=== PATIENT | male | born 1965 | race Caucasian/White ===

== ENCOUNTER 2016-06-25 11:33 | Emergency (ER) | payer MEDICARE ==
[2016-06-25] MEDS ORDERED: Tetan/Diph/Pertus SYR(Tdap)* 0.5 ML SYR(BOOSTRIX) use SYR IM ONE (12:47)
[2016-06-25] MEDS ORDERED: Mupirocin 2% OINT* TUBE TOPICAL ONE (12:52)
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
[2016-06-25 13:14] VITALS: BP 148/92
== END 2016-06-25 13:15 | disposition left against medical advice (07) ==
LOC: UCEAST 11:33
DX: T21.25XA Burn of second degree of buttock, initial encounter (principal); T21.26XA Burn of second degree of male genital region, initial encounter; T24.212A Burn of second degree of left thigh, initial encounter; R56.9 Unspecified convulsions; F17.210 Nicotine dependence, cigarettes, uncomplicated; X10.0XXA Contact with hot drinks, initial encounter
CPT/HCPCS: 90715; 99213; G0463

== ENCOUNTER 2016-08-02 15:01 | Emergency (ER) | payer MEDICARE, MEDICAID ==
--- NOTE | 2016-08-02 16:01 | RAD ---
INDICATION: History of seizures. COMPARISON: CT brain August 25, 2015 TECHNIQUE: Noncontrast axial source images were acquired from the skull base to the vertex. FINDINGS: Ventricles/sulci: The ventricles and cisterns are normal in size and configuration for age. Brain parenchyma: There is no focal parenchymal finding, evidence of intracranial mass, or intracranial mass effect. Intracranial hemorrhage:None. Extra-axial spaces: There are no abnormal extra axial fluid collections or evidence of extra-axial mass. Calvarium: There is no calvarial fracture or other calvarial abnormality. Scalp: There is no evidence of scalp or extracalvarial soft tissue abnormality. Paranasal sinuses/mastoid: The paranasal sinuses and mastoid air cells are clear. Other: None. IMPRESSION: NEGATIVE NONCONTRAST EXAMINATION
--- NOTE | 2016-08-02 16:04 | RAD ---
INDICATION: History of seizures. No complaints COMPARISON: CT brain August 25, 2015, May 07, 2013 TECHNIQUE: Axial source images were acquired from the vertex of the mandible through the orbits. Coronal and sagittal reconstructed images were acquired. FINDINGS: Bones: There is no acute facial bone fracture. There is a mildly displaced left nasal bone fracture which is unchanged Orbits: The globes and intraconal structures appear intact. The optic nerves are symmetric. Extraocular muscles appear normal. There is no intraconal inflammatory change or retrobulbar mass.. Paranasal sinuses: There is minor mucosal thickening involving the maxillary antra bilaterally left greater than right The paranasal sinuses are otherwise clear. Brain: There are no acute abnormalities of the visualized brain parenchyma. Soft tissues: Normal Other: None The visualized soft tissue elements about the neck appear normal. IMPRESSION: REMOTE LEFT NASAL BONE FRACTURE. FINDINGS OF MILD CHRONIC SINUSITIS.
[2016-08-02 16:53] LABS: Urine Bacteria Absent (Absent); Urine Bilirubin Negative (Negative); Urine Glucose Negative (Negative); Urine Nitrite Negative (Negative)
[2016-08-02 16:56] LABS: Hematocrit 41 % (42-52); Mean Corpuscular HGB Conc 34 g/dl (31-36); Mean Corpuscular Hemoglobin 32 pg (27-31); Mean Corpuscular Volume 92 fL (80-94); Mean Platelet Volume 8 um3 (7.4-10.4); Red Blood Count 4.45 10^6/ul (4.0-5.4); Red Cell Distribution Width 14 % (10.5-15); White Blood Count 10.1 10^3/ul (3.5-10.8)
[2016-08-02 17:11] LABS: Albumin 3.8 g/dL (3.2-5.2); BUN/Creatinine Ratio 18.3 (8-20); Calcium 9.5 mg/dL (8.6-10.3); EGFR Non-African American 117.4 (>60); Globulin 3.6 g/dL (2-4); Potassium 4.3 mmol/L (3.5-5.0); Total Bilirubin 0.4 mg/dL (0.2-1.0); Total Protein 7.4 g/dL (6.4-8.9)
[2016-08-02 18:12] VITALS: BP 141/80
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
== END 2016-08-02 18:11 | disposition home or self-care (01) ==
LOC: ED 15:01
DX: S01.112A Laceration without foreign body of left eyelid and periocular area, initial encounter (principal); S02.2XXA Fracture of nasal bones, initial encounter for closed fracture; G40.909 Epilepsy, unspecified, not intractable, without status epilepticus; W19.XXXA Unspecified fall, initial encounter; Y93.9 Activity, unspecified; Y92.129 Unspecified place in nursing home as the place of occurrence of the external cause
CPT/HCPCS: 36415; 70450; 70486; 80053; 80164; 80299; 81003; 81015; 82550; 83605; 85025; 87086; 99284

== ENCOUNTER 2016-11-17 17:07 | Observation (INO) | payer MEDICARE ==
[2016-11-17] MEDS ORDERED: LORazepam INJ* 2 MG/ML 1 ML VIAL IV PUSH PRN (17:15)
[2016-11-17] MEDS ORDERED: Lacosamide TAB* 100 MG TAB PO SCH (18:00)
[2016-11-17 19:54] LABS: Hematocrit 44 % (42-52); Mean Corpuscular HGB Conc 34 g/dl (31-36); Mean Corpuscular Hemoglobin 31 pg (27-31); Mean Corpuscular Volume 90 fL (80-94); Mean Platelet Volume 9 um3 (7.4-10.4); Red Blood Count 4.89 10^6/ul (4.0-5.4); Red Cell Distribution Width 16 % (10.5-15); White Blood Count 9.3 10^3/ul (3.5-10.8)
[2016-11-17 20:21] LABS: BUN/Creatinine Ratio 5.6 (8-20); Calcium 9.2 mg/dL (8.6-10.3); EGFR African American 150.4 (>60); Globulin 3.2 g/dL (2-4); Total Bilirubin 0.8 mg/dL (0.2-1.0); Total Protein 7.2 g/dL (6.4-8.9)
[2016-11-17] MEDS ORDERED: Divalproex DR TAB(*) 500 MG PO SCH (21:00)
[2016-11-17] MEDS ORDERED: Clobazam TAB (NF) 10 MG TAB PO SCH (21:00)
[2016-11-17] MEDS: Heparin VIAL(*) 5000 UNITS/ML VIAL (FIVE THOUSAND) SUBCUT SCH (21:17)
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
[2016-11-18 04:57] VITALS: BP 139/79
[2016-11-18] MEDS ORDERED: Lacosamide TAB* 100 MG TAB PO SCH (09:00)
[2016-11-18] MEDS: Heparin VIAL(*) 5000 UNITS/ML VIAL (FIVE THOUSAND) SUBCUT SCH (10:18)
--- NOTE | 2016-11-19 05:38 | DS ---
CC: Dr. Ortega DISCHARGE SUMMARY: DATE OF ADMISSION: DATE OF DISCHARGE: 11/18/16 HISTORY OF PRESENT ILLNESS: This 51-year-old man came for routine screening colonoscopy to the [facility] endoscopy suite on 11/17/16. While waiting, he had taken a prep as prescribed and was waitin g in the endoscopy area. When a loud noise came from the waiting room and the nurse went in and saw the patient was seizing. The patient had omitted all of his medications including his anti-seizure medications on the morning of colonoscopy. Dr. Mcdowell was nearby and gave 5 mg of IV midazolam and then another 2 mg 5 minutes later and another milligram 3 minutes after that, 1500 mg of fosphenytoi n was also ordered by the patch washer and administered. Dr. Ortega came to see the patient an d ordered 300 mg of IV Vimpat, which was given. The patient stopped having seizures. Overnight, he did well. His usual seizure medication regimen was reinstituted. FINAL DIAGNOSIS: Seizure disorder. DISCHARGE MEDICATIONS: 1. Divalproex 1500 mg h.s. 2. Lacosamide 300 mg daily and 100 mg every evening. 3. Clobazam 10 mg h.s. [id number]/[facility] [place] #: [id number]
== END 2016-11-18 15:15 | disposition home or self-care (01) ==
LOC: MEDTELE 17:59
PROVIDERS: ADMIT Internal Medicine; ATTEND Internal Medicine
DX: G40.909 Epilepsy, unspecified, not intractable, without status epilepticus (principal); Z87.891 Personal history of nicotine dependence
CPT/HCPCS: 36415; 80053; 85027; 96372; A9270-GY; G0378; J1644

== ENCOUNTER 2016-12-08 12:21 | Emergency (ER) | payer MEDICARE ==
--- NOTE | 2016-12-08 14:30 | UC ---
Laceration HPI - HPI Summary HPI Summary: 51 YEAR OLD MALE PRESENTS WITH COMPLAINS OF LEFT THUMB LACERATION SECONDARY TO A CERAMIC TOILET BOWL. - History Of Current Complaint Chief Complaint: UCLaceration Stated Complaint: FINGER LACERATION Time Seen by Provider: 12/08/16 14:30 Hx Obtained From: Patient Laceration Location: Hand - left thumb Mechanism Of Injury: Sharp Trauma Onset/Duration: Sudden Onset Pain Scale Used: 0-10 Numeric - 5 - Allergies/Home Medications Allergies/Adverse Reactions: Allergies Allergy/AdvReac Type Severity Reaction Status Date / Time No Known Allergies Allergy Verified 12/08/16 13:10 PMH/Surg Hx/FS Hx/Imm Hx Previously Healthy: Yes - Surgical History Surgical History: None - Family History Known Family History: Positive: Hypertension - Social History Alcohol Use: None Substance Use Type: Marijuana Substance Use Comment - Amount & Last Used: daily usage Smoking Status (MU): Former Smoker Amount Used/How Often: 1 pack/ day When Did the Patient Quit Smoking/Using Tobacco: 06/2016 Household Exposure Type: Cigarettes - Immunization History Most Recent Influenza Vaccination: unknown Most Recent Tetanus Shot: 06/2016 Most Recent Pneumonia Vaccination: unknown Review of Systems Constitutional: Negative Skin: Other - left thumb laceration Eyes: Negative ENT: Negative Respiratory: Negative Cardiovascular: Negative Gastrointestinal: Negative Genitourinary: Negative Motor: Negative Neurovascular: Negative Musculoskeletal: Negative Neurological: Negative Psychological: Negative All Other Systems Reviewed And Are Negative: Yes Physical Exam Triage Information Reviewed: Yes Vital Signs: Initial Vital Signs Temp 36.6 C 12/08/16 13:04 Pulse 65 12/08/16 13:04 Resp 16 12/08/16 13:04 BP 140/96 12/08/16 13:04 Pulse Ox 100 12/08/16 13:04 Vital Signs Reviewed: Yes Eye Exam: Normal ENT Exam: Normal Dental Exam: Normal Neck exam: Normal Neck: Positive: 1 Respiratory Exam: Normal Cardiovascular Exam: Normal Abdominal Exam: Normal Musculoskeletal Exam: Normal Neurological Exam: Normal Psychological Exam: Normal Skin: Positive: Other - left thumb laceration Laceration Repair - Laceration Repair 1 Description: Irregular Laceration Size After Repair: Length (cm) - 2.5 to 5 cm Modified For Repair: No Type Injection: Local Anesthesia Used: 1.0% Lido Cleansing Completed Via Routine Prep: Yes Closure Material: Sutures - 10 Suture Of: Skin Suture Type: Prolene - 5.0 Laceration Course/Dx - Differential Dx - Laceration/Wound Provider Diagnoses: left thumb laceration repair 2.5 to 5 cm Discharge - Discharge Plan Condition: Stable Disposition: HOME Prescriptions: Cephalexin CAP* [Keflex CAP*] 500 mg PO TID #30 cap Patient Education Materials: Care For Your Stitches (ED), Laceration (ED) Referrals: Mike Dickinson NP [Primary Care Provider] -
[2016-12-08] MEDS ORDERED: Lidocaine 1% MPF* 2 ML VIAL INJ ONE (14:47)
[2016-12-08] MEDS ORDERED: diPHENhydraMINE IV* 50 MG/ML 1 ml VIAL (BENADRYL) IV ONE (14:52)
[2016-12-08 15:59] VITALS: BP 150/95
== END 2016-12-08 15:50 | disposition home or self-care (01) ==
LOC: UCEAST 12:21
DX: S61.012A Laceration without foreign body of left thumb without damage to nail, initial encounter (principal); Z87.891 Personal history of nicotine dependence; W45.8XXA Other foreign body or object entering through skin, initial encounter; Y92.9 Unspecified place or not applicable
CPT/HCPCS: 12002; 99212; G0463

== ENCOUNTER 2016-12-10 10:09 | Emergency (ER) | payer MEDICARE ==
--- NOTE | 2016-12-10 10:15 | UC ---
Upper Extremity HPI - HPI Summary HPI Summary: 51 YEAR OLD MALE PRESENTS FOR 48 LEFT THUMB LACERATION REPAIR WITH SUTURES. - History of Current Complaint Stated Complaint: THUMB Time Seen by Provider: 12/10/16 10:15 Hx Obtained From: Patient Onset/Duration: Sudden Onset Severity Currently: None Pain Scale Used: 0-10 Numeric - 0 - Allergies/Home Medications Allergies/Adverse Reactions: Allergies Allergy/AdvReac Type Severity Reaction Status Date / Time No Known Allergies Allergy Verified 12/10/16 10:15 PMH/Surg Hx/FS Hx/Imm Hx Previously Healthy: Yes - Surgical History Surgical History: None - Family History Known Family History: Positive: Hypertension - Social History Alcohol Use: None Substance Use Type: Marijuana Substance Use Comment - Amount & Last Used: daily usage Smoking Status (MU): Former Smoker Amount Used/How Often: 1 pack/ day When Did the Patient Quit Smoking/Using Tobacco: 06/2016 Household Exposure Type: Cigarettes - Immunization History Most Recent Influenza Vaccination: unknown Most Recent Tetanus Shot: 06/2016 Most Recent Pneumonia Vaccination: unknown Review of Systems Constitutional: Negative Skin: Other - LEFT THUMB LACERATION Eyes: Negative ENT: Negative Respiratory: Negative Cardiovascular: Negative Gastrointestinal: Negative Genitourinary: Negative Motor: Negative Neurovascular: Negative Musculoskeletal: Negative Neurological: Negative Psychological: Negative All Other Systems Reviewed And Are Negative: Yes Physical Exam Triage Information Reviewed: Yes Appearance: Well-Appearing Vital Signs Reviewed: Yes Eye Exam: Normal ENT Exam: Normal Dental Exam: Normal Neck exam: Normal Neck: Positive: 1 Respiratory Exam: Normal Cardiovascular Exam: Normal Abdominal Exam: Normal Musculoskeletal Exam: Normal Neurological Exam: Normal Psychological Exam: Normal Skin: Positive: Other - LEFT THUMB LACERATION REPAIR WOUND CHECK Upper Extremity Course/Dx - Differential Dx/Diagnosis Provider Diagnoses: LEFT THUMB LACERATION REPAIR WOUND CHECK Discharge - Discharge Plan Condition: Stable Disposition: HOME Patient Education Materials: Care For Your Stitches (ED), Laceration (ED) Referrals: Mike Dickinson NP [Primary Care Provider] -
[2016-12-10 10:19] VITALS: BP 148/83
== END 2016-12-10 10:29 | disposition home or self-care (01) ==
LOC: UCEAST 10:09
DX: Z48.00 Encounter for change or removal of nonsurgical wound dressing (principal); S61.012D Laceration without foreign body of left thumb without damage to nail, subsequent encounter; X58.XXXD Exposure to other specified factors, subsequent encounter
CPT/HCPCS: 99211; G0463

== ENCOUNTER 2017-02-15 13:36 | Day surgery (SDC) | payer MEDICARE ==
[~2017-02-15 13:36] MED LIST: Buffered Lidocaine 0.9% SYRIN* 5 ML/SYR SYRINGE INTRADERM ONE; DiMENhydriNATE IV* 50 MG/ML VIAL IV PUSH PRN; Famotidine IV* 10 MG/ML 2 ML (20 mg) IV ONE; Ondansetron INJ* 2 MG/ML VIAL IV PRN; PROCHLORPERAZINE INJ 5 MG/ML 2 ML VIAL IV PRN
[2017-02-15] MEDS ORDERED: Buffered Lidocaine 0.9% SYRIN* 5 ML/SYR SYRINGE ONE (13:39)
[2017-02-15] MEDS ORDERED: Famotidine IV* 10 MG/ML 2 ML (20 mg) ONE (13:39)
[2017-02-15] MEDS ORDERED: Midazolam* 1 MG/ML 10 ML VIAL (10 MG) ONE (14:25)
[2017-02-15] MEDS ORDERED: fentaNYL* 50 MCG/ML 2 ML VIAL (100 MCG VIAL) ONE (14:25)
[2017-02-15] MEDS ORDERED: Propofol* 10 MG/ML 20 ML BTL IV PUSH ONE (16:11)
[2017-02-15] MEDS ORDERED: Phenylephrine IV* 40 MCG/ML 10 ML SYRINGE ONE (16:12)
[2017-02-15] MEDS ORDERED: EPHEDrine (Pressors)* 50 MG/ML VIAL ONE (16:12)
[2017-02-15] MEDS ORDERED: Glycopyrrolate IV* 0.2 MG/ML 1 ML VIAL ONE (16:12)
[2017-02-15 17:38] VITALS: BP 133/89
--- NOTE | 2017-02-16 06:48 | PRO ---
AMENDED REPORT TO CORRECT ACCOUNT NUMBER - ESIGNED BEFORE ADJUSTMENT CC: Mike Dickinson COAL [employer]IKER * GASTROENTEROLOGY OPERATIVE REPORT: DATE OF PROCEDURE: 02/15/17 - [facility] OPERATIVE PROCEDURE: Colonoscopy to terminal ileum. SURGEON: Prema Murphy DO ANESTHESIA: General. HISTORY OF PRESENT ILLNESS: Sergio is a pleasant 51-year-old male, who presents today for his initial screening colonoscopy. He has a distant history of colon cancer on his mother's side of the family. He denies any personal history of gastrointestinal complaints at this time. PREOPERATIVE DIAGNOSIS: 1. Initial screening colonoscopy. POSTOPERATIVE DIAGNOSES: 1. Normal-appearing terminal ileum. 2. 4-mm sessile descending colon polyp with polypectomy. 3. Nine 2-mm to 4-mm sigmoid polyp with polypectomies. 4. 6-mm sessile rectal polyp with cold snare polypectomy. 5. Small non-thrombosed external hemorrhoids on rectal examination. 6. Good colonoscopy preparation. 7. Recommend any further endoscopic procedures to be preformed under MAC or General anesthesia due to his complex seizure history and he should always receive his seizure medications the morning of his procedures. RECOMMENDATIONS: 1. We will determine timing of repeat colonoscopy based on biopsy results. DESCRIPTION OF PROCEDURE: Colonoscopy was explained in detail to the patient. The risks, benefits, complications, alternatives, and possibilities of missed lesions were explained and understood. Complications included, but were not limited to, reaction to anesthesia, aspiration, increased risk of bleeding, and perforation. All questions were answered. The patient demonstrated understanding of the conversation. Informed consent was obtained. Next, the patient was brought to the OR and placed in the left lateral recumbent position where blood pressure, cardiac, and oxygen monitors were applied. The patient was found to be a fit candidate for general anesthesia. After adequate IV sedation was achieved, a digital rectal exam was performed, which revealed normal sphincter tone. No palpable masses were appreciated. There were small non-thrombosed external hemorrhoids. Next, a standard adult Olympus adult colonoscope was inserted through the rectum, maneuvered all the way to the cecal base where the ileocecal valve and appendiceal orifice were identified and photographed. Next, the colonoscope was maneuvered to intubate the terminal ileum which was normal appearing. Subsequently, the colonoscope was withdrawn in a fashion that allowed adequate visualization of bowel. The patient had normal mucosa and vascular pattern. Overall, the patient's colonoscopy prep was good. The cecum, ascending colon, transverse colon were normal appearing. Entry into the descending colon revealed a 4-mm sessile polyp. It was removed via jumbo cold forceps. Hemostasis was seen. Further withdrawal into the sigmoid colon revealed several, totaling nine 2-mm to 4-mm sessile polyps. These were all removed via jumbo cold forceps. Hemostasis was seen at each polypectomy site. Further withdrawal into the rectum revealed a 6- mm sessile polyp. It was removed via cold snare. Hemostasis was seen at the site. On retroflexion, there were no gross abnormalities noted. Air was then removed from the patient. Colonoscope was removed from the patient. The patient tolerated the procedure well. There were no immediate complications after a period of observation. 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 Thank you, Mike Dickinson NP, for allowing us to participate in the care of your patient. If you should have any further questions or concerns, please do not hesitate to contact us. [id number]/CUONG #: [id number] RAZA
== END 2017-02-15 17:52 | disposition home or self-care (01) ==
LOC: OR 13:36
PROVIDERS: ATTEND Internal Medicine Gastroenterology
DX: Z12.11 Encounter for screening for malignant neoplasm of colon (principal); G40.89 Other seizures; K63.5 Polyp of colon; K62.1 Rectal polyp; K64.8 Other hemorrhoids; Z87.891 Personal history of nicotine dependence; F12.10 Cannabis abuse, uncomplicated
CPT/HCPCS: 88305; J2250; J2704; J3010

== ENCOUNTER 2017-07-05 08:13 | Emergency (ER) | payer MEDICARE ==
--- OUTSIDE RECORDS SUMMARY | 2017-07-05 08:19 | XMS REPORT ---
:1965 External Reference #:[id number] Author Organization [facility] Address [address] [address] Phone [phone] Care Team Providers Name Role Phone Miroslava Castillo MD Primary Care Physician Unavailable Payers Type Date Identification Numbers Payment Provider Subscriber Medicare Primary Policy Number: [id number] Medicare Tatyana Rodrigues PayID: [id number] [address] [place] [address] Medigap Part B Expires: 2017 Policy Number: [id number] Medicaid Tatyana Rodrigues Group Name: 1 1 [address] PayID: [id number] [place] [address] Medigap Part B Expires: 2015 Policy Number: [id number] Medicaid Tatyana Rodrigues Group Name: 1 1 [address] PayID: [id number] [place] [address] Medigap Part B Expires: 2017 Policy Number: [id number] Medicaid Tatyana Rodrigues PayID: [id number] [address] [place] [address] Problems Date Description Provider Status Onset: 07/01/2014 Localization-related epilepsy Marino Perdomo M.D. 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 Previously smoked 1ppd x 22 yrs. Daily Caffeine Consumes on average 5 cups of regular coffee per day Exercise Type/Frequency Exercises sporadically Allergies, Adverse Reactions, Alerts Date Description Reaction Status Severity Comments 03/14/2012 NKDA active Medications Medication Date Status Form Strength Qnty SIG Indications Ordering Provider Onfi 09/30/ Active Tablets 10mg 45tab 1/2 tablet G40.219 Alannah 2016 s in the MD Shannon morning and 1 tab by mouth at bedtime Vimpat 11/05/ Active Tablets 100mg 30tab 1 by mouth G40.219 Alannah 2015 s in the MD Shannon morning with your 200mg tablet mdd 1 Vimpat 05/24/ Active Tablets 200mg 60tab 1 tab by G40.219 Alannah 2015 s mouth MD Shannon twice a day Multi Vitamin / Active Tablets 1 po qd Unknown Mens 0000 Depakote / Active Tablets DR 500mg 90tab 3 tab by G40.Albina Pichardo S. 0000 s mouth at [place], at bedtime M.D. Divalproex 07/21/ Hx Tablets ER 250mg 30tab 1 tablet G40.219 Alannah Sodium ER 2017 - 24HR s at night MD Shannon 07/07/ with 3 2016 500mg tablets Onfi 06/13/ Hx Tablets 10mg 30tab 1 tab po q G40.219 Alannah 2017 - s hs MD [place] 2016 Vimpat 04/20/ Hx Tablets 100mg 120ta 2 by mouth G40.219 Alannah 2016 - bs twice a MD [place] 05/24/ day. code 2016 c Vimpat 03/23/ Hx Tablets 100mg 120ta 1 by mouth G40.219 Alannah 2016 - bs twice a MD [place] 04/20/ day x1 2015 week then 1 every morning and 2 every night x1wk then 2 twice daily Depakote ER 12/16/ Hx Tablets ER 500mg 120ta take 4 by Oneal Jaffe 2014 - 24HR bs mouth at MD [place] 07/28/ night 2017 Depakote ER 10/01/ Hx Tablets ER 500mg 60tab 2 every Marino S. 2015 - 24HR s night at [place], 12/16/ bedtime M.D. 2014 Oxcarbazepine 01/11/ Hx Tablets 300mg 120ta 2 tabs by Marino Bergeron 2011 - bs mouth Leanne, 07/12/ twice a M.D. 2015 day Oxcarbazepine 12/06/ Hx Tablets 150mg 180ta 3 twice a Marino Bergeron 2011 - bs day Leanne, 01/11/ M.D. 2011 Triamcinolone / Hx Ointment 0.1% apply Herson Hernandezonide 0000 - topically MD Андрей to 2015 affected area prn. Potassium / Hx Tablets 99mg 2 tabs po Unknown Gluconate 0000 - bid 2014 Ibuprofen / Hx Capsules 200mg as needed Unknown 0000 - 2015 Albuterol / Hx Nebulizer (2.5mg/3ML 1 vial via Unknown Sulfate 0000 - ) 0.083% nebulizer 4 times 2017 daily as needed Diclofenac / Hx Tablets DR 50mg take one Unknown Sodium 0000 - po bid as needed for 2017 pain Oxycodone-Aceta / Hx Tablets 5-325mg 1-2 by Unknown minophen 0000 - mouth 09/29/ every 4 2017 hours as needed pain Senna S / Hx Tablets 8.6-50mg 2 by mouth Unknown 0000 - qd as needed 2017 Vital Signs Date Vital Result Comment 06/21/2017 Weight 202.25 lb Heart Rate 79 /min BP Systolic 120 mmHg BP Diastolic 74 mmHg Body Temperature 97.3 F O2 % BldC Oximetry 97 % 06/05/2017 Height 70 inches 5'10" Weight 200.12 lb Heart Rate 88 /min BP Systolic Sitting 130 mmHg BP Diastolic Sitting 90 mmHg BMI (Body Mass Index) 28.7 kg/m2 01/31/2017 Height 70 inches 5'10" Weight 187.00 lb Heart Rate 88 /min BP Systolic Sitting 126 mmHg BP Diastolic Sitting 80 mmHg BMI (Body Mass Index) 26.8 kg/m2 12/16/2016 Heart Rate 73 /min BP Systolic Sitting 134 mmHg BP Diastolic Sitting 78 mmHg O2 % BldC Oximetry 96 % 10/25/2016 Weight 196.00 lb Heart Rate 73 /min BP Systolic Sitting 144 mmHg BP Diastolic Sitting 100 mmHg BP Systolic Recheck 134 mmHg BP Diastolic Recheck 84 mmHg O2 % BldC Oximetry 97 % 09/30/2016 Height 70 inches 5'10" Weight 196.25 lb Heart Rate 74 /min BP Systolic Sitting 126 mmHg BP Diastolic Sitting 82 mmHg Respiratory Rate 16 /min BMI (Body Mass Index) 28.2 kg/m2 07/25/2016 Weight 199.00 lb Heart Rate 66 /min BP Systolic 122 mmHg BP Diastolic 80 mmHg Body Temperature 97.5 F O2 % BldC Oximetry 99 % 07/21/2016 Height 70 inches 5'10" Weight 198.00 lb Heart Rate 72 /min BP Systolic Sitting 118 mmHg BP Diastolic Sitting 68 mmHg Respiratory Rate 17 /min BMI (Body Mass Index) 28.4 kg/m2 06/13/2016 Height 70 inches 5'10" Weight 178.00 lb Heart Rate 82 /min BP Systolic Sitting 132 mmHg BP Diastolic Sitting 88 mmHg Respiratory Rate 16 /min BMI (Body Mass Index) 25.5 kg/m2 03/11/2016 Height 70 inches 5'10" Weight 180.00 lb Heart Rate 72 /min BP Systolic Sitting 120 mmHg Respiratory Rate 17 /min BMI (Body Mass Index) 25.8 kg/m2 11/06/2015 Height 70 inches 5'10" Weight 162.00 lb Heart Rate 72 /min BP Systolic Sitting 116 mmHg BP Diastolic Sitting 68 mmHg Respiratory Rate 14 /min BMI (Body Mass Index) 23.2 kg/m2 07/14/2015 Height 70 inches 5'10" Weight 160.00 lb Heart Rate 82 /min BP Systolic Sitting 140 mmHg BP Diastolic Sitting 86 mmHg Respiratory Rate 16 /min BMI (Body Mass Index) 23.0 kg/m2 03/23/2015 Height 70 inches 5'10" Heart Rate 76 /min BP Systolic Sitting 148 mmHg BP Diastolic Sitting 74 mmHg Respiratory Rate 16 /min 12/16/2014 Height 70 inches 5'10" Weight 176.00 lb Heart Rate 64 /min BP Systolic Sitting 134 mmHg BP Diastolic Sitting 76 mmHg Respiratory Rate 16 /min BMI (Body Mass Index) 25.3 kg/m2 10/21/2014 Height 70 inches 5'10" Weight 175.00 lb Heart Rate 80 /min BP Systolic Sitting 140 mmHg BP Diastolic Sitting 72 mmHg Respiratory Rate 14 /min BMI (Body Mass Index) 25.1 kg/m2 10/01/2014 Height 70 inches 5'10" Weight 172.00 lb Heart Rate 84 /min BP Systolic Sitting 144 mmHg BP Diastolic Sitting 96 mmHg Respiratory Rate 14 /min BMI (Body Mass Index) 24.7 kg/m2 07/01/2014 Height 70 inches 5'10" Weight 177.38 lb Heart Rate 68 /min BP Systolic Sitting 136 mmHg BP Diastolic Sitting 80 mmHg Respiratory Rate 16 /min BMI (Body Mass Index) 25.4 kg/m2 12/17/2013 Height 70 inches 5'10" Weight 181.00 lb Heart Rate 84 /min BP Systolic Sitting 164 mmHg BP Diastolic Sitting 88 mmHg Respiratory Rate 16 /min BMI (Body Mass Index) 26.0 kg/m2 06/19/2013 Height 70 inches 5'10" Weight 182.25 lb Heart Rate 70 /min BP Systolic Sitting 140 mmHg BP Diastolic Sitting 82 mmHg Respiratory Rate 16 /min BMI (Body Mass Index) 26.1 kg/m2 12/12/2012 Heart Rate 62 /min BP Systolic Sitting 160 mmHg BP Diastolic Sitting 90 mmHg Respiratory Rate 19 /min 03/14/2012 Heart Rate 72 /min BP Systolic 138 mmHg BP Diastolic 76 mmHg Respiratory Rate 74 /min Results Test Date Test Result H/L Range Note Comp Metabolic Panel 06/05/2017 Sodium 135 mmol/L Low 139-145 Potassium 4.7 mmol/L 3.5-5.0 Chloride 100 mmol/L Low 101-111 Co2 Carbon Dioxide 29 mmol/L 22-32 Anion Gap 6 mmol/L 2-11 Glucose 94 mg/dL 70-100 Blood Urea Nitrogen 13 mg/dL 6-24 Creatinine 0.79 mg/dL 0.67-1.17 BUN/Creatinine Ratio 16.5 8-20 Calcium 9.6 mg/dL 8.6-10.3 Total Protein 6.9 g/dL 6.4-8.9 Albumin 4.1 g/dL 3.2-5.2 Globulin 2.8 g/dL 2-4 Albumin/Globulin Ratio 1.5 1-3 Total Bilirubin 0.30 mg/dL 0.2-1.0 Alkaline Phosphatase 66 U/L 34-104 Alt 15 U/L 7-52 Ast 18 U/L 13-39 Egfr Non- 103.4 >60 Egfr 133.0 >60 1 CBC Auto Diff 06/05/2017 White Blood Count 9.4 10^3/uL 3.5-10.8 Red Blood Count 4.59 10^6/uL 4.0-5.4 Hemoglobin 15.0 g/dL 14.0-18.0 Hematocrit 43 % 42-52 Mean Corpuscular Volume 94 fL 80-94 Mean Corpuscular Hemoglobin 33 pg High 27-31 Mean Corpuscular HGB Conc 35 g/dL 31-36 Red Cell Distribution Width 14 % 10.5-15 Platelet Count 286 10^3/uL 150-450 Mean Platelet Volume 8.3 um3 7.4-10.4 Abs Neutrophils 6.0 10^3/uL 1.5-7.7 Abs Lymphocytes 2.4 10^3/uL 1.0-4.8 Abs Monocytes 0.7 10^3/uL 0-0.8 Abs Eosinophils 0.2 10^3/uL 0-0.6 Abs Basophils 0.1 10^3/uL 0-0.2 Abs Nucleated RBC 0 10^3/uL Granulocyte % 63.6 % 38-83 Lymphocyte % 26.0 % 25-47 Monocyte % 7.6 % High 0-7 Eosinophil % 1.9 % 0-6 Basophil % 0.9 % 0-2 Nucleated Red Blood Cells % 0.1 Laboratory test 02/15/2017 Surgical Interface SEE RESULT BELOW 2 finding Order Laboratory test 07/27/2016 Valproic Acid 78.0 g/mL 50-100 3, 4 finding (Depakene) Comp Metabolic Panel 03/18/2016 Sodium 130 mmol/L Low 133-145 Potassium 4.7 mmol/L 3.5-5.0 Chloride 96 mmol/L Low 101-111 Co2 Carbon Dioxide 31 mmol/L 22-32 Anion Gap 3 mmol/L 2-11 Glucose 85 mg/dL 70-100 Blood Urea Nitrogen 7 mg/dL 6-24 Creatinine 0.73 mg/dL 0.67-1.17 BUN/Creatinine Ratio 9.6 8-20 Calcium 9.6 mg/dL 8.6-10.3 Total Protein 6.8 g/dL 6.4-8.9 Albumin 4.0 g/dL 3.2-5.2 Globulin 2.8 g/dL 2-4 Albumin/Globulin Ratio 1.4 1-3 Total Bilirubin 0.40 mg/dL 0.2-1.0 Alkaline Phosphatase 60 U/L 34-104 Alt 14 U/L 7-52 Ast 14 U/L 13-39 Egfr Non- 113.7 >60 Egfr 146.3 >60 5 CBC Auto Diff 03/18/2016 White Blood Count 7.0 10^3/uL 3.5-10.8 Red Blood Count 4.39 10^6/uL 4.0-5.4 Hemoglobin 14.2 g/dL 14.0-18.0 Hematocrit 41 % Low 42-52 Mean Corpuscular Volume 94 fL 80-94 Mean Corpuscular Hemoglobin 32 pg High 27-31 Mean Corpuscular HGB Conc 34 g/dL 31-36 Red Cell Distribution Width 14 % 10.5-15 Platelet Count 266 10^3/uL 150-450 Mean Platelet Volume 9 um3 7.4-10.4 Abs Neutrophils 4.1 10^3/uL 1.5-7.7 Abs Lymphocytes 1.9 10^3/uL 1.0-4.8 Abs Monocytes 0.8 10^3/uL 0-0.8 Abs Eosinophils 0.2 10^3/uL 0-0.6 Abs Basophils 0.1 10^3/uL 0-0.2 Abs Nucleated RBC 0 10^3/uL Granulocyte % 58.1 % 38-83 Lymphocyte % 27.0 % 25-47 Monocyte % 11.4 % High 1-9 Eosinophil % 2.5 % 0-6 Basophil % 1.0 % 0-2 Nucleated Red Blood Cells % 0 Laboratory test finding 03/18/2016 Lacosamide 6.9 g/mL 1.0 - 10.0 6 Valproic Acid (Depakene) 107.0 g/mL High 50-100 7 CBC Auto Diff 07/20/2015 White Blood Count 6.4 10^3/uL 3.5-10.8 Red Blood Count 4.42 10^6/uL 4.0-5.4 Hemoglobin 14.1 g/dL 14.0-18.0 Hematocrit 42 % 42-52 Mean Corpuscular Volume 95 fL High 80-94 Mean Corpuscular Hemoglobin 32 pg High 27-31 Mean Corpuscular HGB Conc 34 g/dL 31-36 Red Cell Distribution Width 14 % 10.5-15 Platelet Count 298 10^3/uL 150-450 Mean Platelet Volume 9 um3 7.4-10.4 Abs Neutrophils 3.0 10^3/uL 1.5-7.7 Abs Lymphocytes 2.5 10^3/uL 1.0-4.8 Abs Monocytes 0.5 10^3/uL 0-0.8 Abs Eosinophils 0.3 10^3/uL 0-0.6 Abs Basophils 0.1 10^3/uL 0-0.2 Abs Nucleated RBC 0.01 10^3/uL Granulocyte % 46.8 % 38-83 Lymphocyte % 39.5 % 25-47 Monocyte % 8.2 % 1-9 Eosinophil % 4.6 % 0-6 Basophil % 0.9 % 0-2 Nucleated Red Blood Cells % 0.1 Laboratory test finding 07/20/2015 Lacosamide 5.9 g/mL 1.0 - 10.0 8 Laboratory test finding 05/05/2015 Sodium 135 mmol/L 133-145 Comp Metabolic Panel 12/25/2014 Sodium 123 mmol/L Low 133-145 9 Potassium 4.4 mmol/L 3.5-5.0 9 Chloride 90 mmol/L Low 101-111 9 Co2 Carbon Dioxide 28 mmol/L 22-32 9 Anion Gap 5 mmol/L 2-11 9 Glucose 74 mg/dL 70-100 9 Blood Urea Nitrogen 11 mg/dL 6-24 9 Creatinine 0.66 mg/dL Low 0.67-1.17 9 BUN/Creatinine Ratio 16.7 8-20 9 Calcium 9.3 mg/dL 8.6-10.3 9 Total Protein 6.7 g/dL 6.4-8.9 9 Albumin 4.3 g/dL 3.2-5.2 9 Globulin 2.4 g/dL 2-4 9 Albumin/Globulin Ratio 1.8 1-3 9 Total Bilirubin 0.40 mg/dL 0.2-1.0 9 Alkaline Phosphatase 79 U/L 34-104 9 Alt 15 U/L 7-52 9 Ast 20 U/L 13-39 9 Egfr Non- 128.3 >60 9 Egfr 165.0 >60 9, 10 Laboratory test 12/25/2014 Valproic Acid 28.0 g/mL Low 50-100 9, 11 finding (Depakene) Comp Metabolic Panel 11/21/2014 Sodium 132 mmol/L Low 133-145 12 Potassium 5.2 mmol/L High 3.5-5.0 12 Chloride 97 mmol/L Low 101-111 12 Co2 Carbon Dioxide 30 mmol/L 22-32 12 Anion Gap 5 mmol/L 2-11 12 Glucose 107 mg/dL High 70-100 12 Blood Urea Nitrogen 8 mg/dL 6-24 12 Creatinine 0.71 mg/dL 0.67-1.17 12 BUN/Creatinine Ratio 11.3 8-20 12 Calcium 9.6 mg/dL 8.6-10.3 12 Total Protein 6.9 g/dL 6.4-8.9 12 Albumin 4.3 g/dL 3.2-5.2 12 Globulin 2.6 g/dL 2-4 12 Albumin/Globulin Ratio 1.7 1-3 12 Total Bilirubin 0.50 mg/dL 0.2-1.0 12 Alkaline Phosphatase 92 U/L 34-104 12 Alt 18 U/L 7-52 12 Ast 21 U/L 13-39 12 Egfr Non- 117.9 >60 12 Egfr 151.6 >60 12, 13 CBC W/Auto Diff 11/03/2014 White Blood Count 11.1 10^3/uL High 4.8-10.8 14 Red Blood Count 4.54 10^6/uL 4.0-5.4 14 Hemoglobin 14.3 g/dL 14.0-18.0 14 Hematocrit 42 % 42-52 14 Mean Corpuscular Volume 93 fL 80-94 14 Mean Corpuscular Hemoglobin 32 pg High 27-31 14 Mean Corpuscular HGB Conc 34 g/dL 31-36 14 Red Cell Distribution Width 13 % 10.5-15 14 Platelet Count 423 10^3/uL 150-450 14 Mean Platelet Volume 7 um3 Low 7.4-10.4 14 Abs Neutrophils 8.1 10^3/uL High 1.5-7.7 14 Abs Lymphocytes 2.0 10^3/uL 1.0-4.8 14 Abs Monocytes 0.7 10^3/uL 0-0.8 14 Abs Eosinophils 0.2 10^3/uL 0-0.6 14 Abs Basophils 0.1 10^3/uL 0-0.2 14 Abs Nucleated RBC 0 10^3/uL 14 Granulocyte % 73.0 % 38-83 14 Lymphocyte % 18.0 % Low 25-47 14 Monocyte % 6.2 % 1-9 14 Eosinophil % 1.9 % 0-6 14 Basophil % 0.9 % 0-2 14 Nucleated Red Blood Cells % 0 14 Laboratory test 11/03/2014 Trileptal (Oxcarbazepine) 11 g/mL 3 - 35 14 , 15 finding Valproic Acid (Depakene) 27.0 g/mL Low 50-100 14 CMP Panel 11/03/2014 Sodium 123 mmol/L Low 133-145 14 Potassium 4.6 mmol/L 3.5-5.0 14 Chloride 89 mmol/L Low 101-111 14 Co2 Carbon Dioxide 29 mmol/L 22-32 14 Anion Gap 5 mmol/L 2-11 14 Glucose 119 mg/dL High 70-100 14 Blood Urea Nitrogen 5 mg/dL Low 6-24 14 Creatinine 0.63 mg/dL Low 0.67-1.17 14 BUN/Creatinine Ratio 7.9 Low 8-20 14 Calcium 9.2 mg/dL 8.6-10.3 14 Total Protein 6.7 g/dL 6.4-8.9 14 Albumin 4.1 g/dL 3.2-5.2 14 Globulin 2.6 g/dL 2-4 14 Albumin/Globulin Ratio 1.6 1-3 14 Total Bilirubin 0.30 mg/dL 0.2-1.0 14 Alkaline Phosphatase 84 U/L 34-104 14 Alt 16 U/L 7-52 14 Ast 18 U/L 13-39 14 Egfr Non- 135.4 >60 14 Egfr 174.1 >60 14, 16 Laboratory test finding 10/02/2013 Oxcarbazepine 13 g/mL 3 - 35 17 Laboratory test finding 06/19/2013 Oxcarbazepine 17 g/mL 3 - 35 18 Basic Metabolic Panel 12/10/2012 Sodium 131 mmol/L Low 133-145 Potassium 4.4 mmol/L 3.5-5.0 Chloride 96 mmol/L Low 101-111 Co2 Carbon Dioxide 30.0 mmol/L 22-32 Anion Gap 5.0 mmol/L 2-11 Glucose 98 mg/dL 70-100 Blood Urea Nitrogen 6 mg/dL 6-24 Creatinine 0.80 mg/dL 0.50-1.40 BUN/Creatinine Ratio 7.5 Low 8-20 Calcium 9.5 mg/dL 8.1-9.9 Egfr Non- 103.6 >60 Egfr 133.3 >60 19 Laboratory test finding 12/10/2012 Carbamazepine < 0.2 g/mL Low 4.0- 12.0 20 CBC With Manual Diff 12/10/2012 White Blood Count 8.3 10^3/uL 4.8-10.8 Red Blood Count 4.99 10^6/uL 4.0-5.4 Hemoglobin 15.8 g/dL 14.0-18.0 Hematocrit 46 % 42-52 Mean Corpuscular Volume 93 fL 80-94 Mean Corpuscular Hemoglobin 32 pg High 27-31 Mean Corpuscular HGB Conc 34 g/dL 31-36 Red Cell Distribution Width 13 % 10.5-15 Platelet Count 373 10^3/uL 150-450 Mean Platelet Volume 8 um3 7.4-10.4 Abs Neutrophils 5.1 10^3/uL 1.5-7.7 Abs Lymphocytes 2.2 10^3/uL 1.0-4.8 Abs Monocytes 0.6 10^3/uL 0-0.8 Abs Eosinophils 0.2 10^3/uL 0-0.6 Abs Basophils 0.1 10^3/uL 0-0.2 Abs Nucleated RBC 0 10^3/uL Neutrophil % 60 % 38-83 Lymphocytes % 30 % 25-47 Monocytes % 7 % 0-13 Eosinophils % 2 % 0-6 Basophil % 1 % 0-2 RBC Morphology Normal Normal CBC Auto Diff 06/06/2012 White Blood Count 6.3 10^3/uL 4.8-10.8 Red Blood Count 4.46 10^6/uL 4.0-5.4 Hemoglobin 14.7 g/dL 14.0-18.0 Hematocrit 41 % Low 42-52 Mean Corpuscular Volume 92 fL 80-94 Mean Corpuscular Hemoglobin 33 pg High 27-31 Mean Corpuscular HGB Conc 36 g/dL 31-36 Red Cell Distribution Width 13 % 10.5-15 Platelet Count 319 10^3/uL 150-450 Mean Platelet Volume 8 um3 7.4-10.4 Abs Neutrophils 3.6 10^3/uL 1.5-7.7 Abs Lymphocytes 2.1 10^3/uL 1.0-4.8 Abs Monocytes 0.4 10^3/uL 0-0.8 Abs Eosinophils 0.1 10^3/uL 0-0.6 Abs Basophils 0 10^3/uL 0-0.2 Abs Nucleated RBC 0 10^3/uL Granulocyte % 57.5 % 38-83 Lymphocyte % 33.9 % 25-47 Monocyte % 6.7 % 1-9 Eosinophil % 1.1 % 0-6 Basophil % 0.8 % 0-2 Nucleated Red Blood Cells % 0 Comp Metabolic Panel 06/06/2012 Sodium 127 mmol/L Low 133-145 Potassium 4.1 mmol/L 3.5-5.0 Chloride 92 mmol/L Low 101-111 Co2 Carbon Dioxide 28.0 mmol/L 22-32 Anion Gap 7.0 mmol/L 2-11 Glucose 93 mg/dL 70-100 Blood Urea Nitrogen 6 mg/dL 6-24 Creatinine 0.80 mg/dL 0.50-1.40 BUN/Creatinine Ratio 7.5 Low 8-20 Calcium 9.4 mg/dL 8.1-9.9 Total Protein 6.1 g/dL Low 6.2-8.1 Albumin 4.2 g/dL 3.6-5.4 Globulin 1.9 g/dL Low 2-4 Albumin/Globulin Ratio 2.2 1-3 Total Bilirubin 0.6 mg/dL 0.4-1.5 Alkaline Phosphatase 90 U/L 30-110 Alt 18 U/L 14-54 Ast 22 U/L 12-42 Egfr Non- 104.1 >60 Egfr 133.8 >60 21 Laboratory test finding 06/06/2012 Oxcarbazepine 15 g/mL 3 - 35 22 1 Because ethnic data is not always readily available, this report includes an eGFR for both -Americans and non- Americans. The National Kidney Disease Education Program (NKDEP) does not endorse the use of the MDRD equation for patients that are not between the ages of 18 and 70, are , have extremes of body size, muscle mass, or nutritional status, or are non- or non-. According to the National Kidney Foundation, irrespective of diagnosis, the stage of the disease is based on the level of kidney function: Stage Description GFR(mL/min/1.73 m(2)) 1 Kidney damage with normal or decreased GFR 90 2 Kidney damage with mild decrease in GFR 60-89 3 Moderate decrease in GFR 30-59 4 Severe decrease in GFR 15-29 5 Kidney failure <15 (or dialysis) 2 SEE RESULT BELOW Name: TATYANA RODRIGUES : [address]: Prema Murphy DO Acct: [id number] Unit: [id number] AGE: 51 Location: OR Re02/15/17 SEX: M Status: DEP [facility] SPEC: [id number] JOVITA: 02/15/17- [facility] DR: Prema Murphy DO REQ: [id number] RECD: 02/15/17 STATUS: TEJA MONET DR: Mike Dickinson PETROLEUM GEOLOGIST _ ORDERED: LEVEL 4/3 FINAL DIAGNOSIS 1. Colon, descending, biopsy: -- Benign colonic mucosa with surface hyperplastic change. 2. Colon, sigmoid, biopsy: -- Hyperplastic polyps. 3. Colon, rectum, biopsy: -- Tubular adenoma. -- No high grade dysplasia or malignancy. CLINICAL HISTORY Screening/Surveillance for malignancy in asymptomatic patient. POST-OPERATIVE DIAGNOSIS 4 mm sessile descending colon; several (9) 2-4 mm sigmoid colon status post polypectomy; 6 mm sessile rectal polyp with cold snare; normal terminal ileum; good prep; external hemorrhoids. Conclusions/Plan: Follow-up pathology GROSS DESCRIPTION 1. The specimen is received in formalin labeled, Biopsy Descending Colon Polyp, and consists of a 0.5 x 0.4 x 0.1 cm aggregate of morley-white irregular soft tissue fragments which is submitted entirely in one cassette. 2. The specimen is received in formalin labeled, Biopsy Sigmoid Colon Polyps, and consists of a 0.9 x 0.7 by up to 0.2 cm aggregate of morley irregular to polypoid soft tissue fragments which is submitted entirely in one cassette. 3. The specimen is received in formalin labeled, Rectal Polyp, and consists of two morley irregular to polypoid soft tissue fragments measuring 0.3 x 0.2 x 0.1 cm and 0.7 x 0.4 x 0.3 CONTINUED ON NEXT PAGE * ML=Testing performed at Main Lab DEPARTMENT OF PATHOLOGY, [address] [place] [address] Lobo Ventura M.D. Director [facility] # [id number] RUN DATE: 02/17/17 [facility] LAB LIVE PAGE 2 Patient: TATYANA RODRIGUES [id number] (Continued) GROSS DESCRIPTION (Continued) GROSS DESCRIPTION (Continued) cm. The larger fragment is inked, trisected and the specimen is entirely submitted in one cassette. Signed (signature on file) Deana Jose MD [id number] END OF REPORT * ML=Testing performed at Main Lab DEPARTMENT OF PATHOLOGY, [address] [place] [address] Lobo Ventura M.D. Director [facility] # [id number] [facility] Unit , Room Number 106 4 [id number] [facility] Unit , Room Number 106 5 Because ethnic data is not always readily available, this report includes an eGFR for both -Americans and non- Americans. The National Kidney Disease Education Program (NKDEP) does not endorse the use of the MDRD equation for patients that are not between the ages of 18 and 70, are , have extremes of body size, muscle mass, or nutritional status, or are non- or non-. According to the National Kidney Foundation, irrespective of diagnosis, the stage of the disease is based on the level of kidney function: Stage Description GFR(mL/min/1.73 m(2)) 1 Kidney damage with normal or decreased GFR 90 2 Kidney damage with mild decrease in GFR 60-89 3 Moderate decrease in GFR 30-59 4 Severe decrease in GFR 15-29 5 Kidney failure <15 (or dialysis) 6 ADDITIONAL INFORMATION This test was developed and its performance characteristics determined by [facility] in a manner consistent with CLIA requirements. This test has not been cleared or approved by the U.S. Food and Drug Administration. Test Performed by: [facility] [place] [address] Business Development Intern: Ayo Dennis II, M.D., Ph.D. 7 Draw prior to AM dose of medication 8 Test Performed by: [address] [address] Business Development Intern: Ayo Dennis II, M.D., Ph.D. 9 Draw prior to AM dose of medication Copy Result to: АНДРЕЙ HERNANDEZ ( [id number]) 10 Because ethnic data is not always readily available, this report includes an eGFR for both -Americans and non- Americans. The National Kidney Disease Education Program (NKDEP) does not endorse the use of the MDRD equation for patients that are not between the ages of 18 and 70, are , have extremes of body size, muscle mass, or nutritional status, or are non- or non-. According to the National Kidney Foundation, irrespective of diagnosis, the stage of the disease is based on the level of kidney function: Stage Description GFR(mL/min/1.73 m(2)) 1 Kidney damage with normal or decreased GFR 90 2 Kidney damage with mild decrease in GFR 60-89 3 Moderate decrease in GFR 30-59 4 Severe decrease in GFR 15-29 5 Kidney failure <15 (or dialysis) 11 Draw prior to AM dose of medication Copy Result to: АНДРЕЙ HERNANDEZ ([id number]) 12 possible hemolysis, sodium improved 13 Because ethnic data is not always readily available, this report includes an eGFR for both -Americans and non- Americans. The National Kidney Disease Education Program (NKDEP) does not endorse the use of the MDRD equation for patients that are not between the ages of 18 and 70, are , have extremes of body size, muscle mass, or nutritional status, or are non- or non-. According to the National Kidney Foundation, irrespective of diagnosis, the stage of the disease is based on the level of kidney function: Stage Description GFR(mL/min/1.73 m(2)) 1 Kidney damage with normal or decreased GFR 90 2 Kidney damage with mild decrease in GFR 60-89 3 Moderate decrease in GFR 30-59 4 Severe decrease in GFR 15-29 5 Kidney failure <15 (or dialysis) [address] ESCALERA'S OFFICE 15 Test Performed by: [place] [address] Business Development Intern: Ayo Dennis II, M.D., Ph.D. 16 Because ethnic data is not always readily available, this report includes an eGFR for both -Americans and non- Americans. The National Kidney Disease Education Program (NKDEP) does not endorse the use of the MDRD equation for patients that are not between the ages of 18 and 70, are , have extremes of body size, muscle mass, or nutritional status, or are non- or non-. According to the National Kidney Foundation, irrespective of diagnosis, the stage of the disease is based on the level of kidney function: Stage Description GFR(mL/min/1.73 m(2)) 1 Kidney damage with normal or decreased GFR 90 2 Kidney damage with mild decrease in GFR 60-89 3 Moderate decrease in GFR 30-59 4 Severe decrease in GFR 15-29 5 Kidney failure <15 (or dialysis) 17 Test Performed by: [facility] [address] [place] [address] Business Development Intern: Francisco Lui III, M.D. 18 Test Performed by: [facility] [address] [place] [address] Business Development Intern: Francisco Lui III, M.D. 19 Because ethnic data is not always readily available, this report includes an eGFR for both -Americans and non- Americans. The National Kidney Disease Education Program (NKDEP) does not endorse the use of the MDRD equation for patients that are not between the ages of 18 and 70, are , have extremes of body size, muscle mass, or nutritional status, or are non- or non-. According to the National Kidney Foundation, irrespective of diagnosis, the stage of the disease is based on the level of kidney function: Stage Description GFR(mL/min/1.73 m(2)) 1 Kidney damage with normal or decreased GFR 90 2 Kidney damage with mild decrease in GFR 60-89 3 Moderate decrease in GFR 30-59 4 Severe decrease in GFR 15-29 5 Kidney failure <15 (or dialysis) 20 LAST DOSE 12/09/12 2400 21 Because ethnic data is not always readily available, this report includes an eGFR for both -Americans and non- Americans. The National Kidney Disease Education Program (NKDEP) does not endorse the use of the MDRD equation for patients that are not between the ages of 18 and 70, are , have extremes of body size, muscle mass, or nutritional status, or are non- or non-. According to the National Kidney Foundation, irrespective of diagnosis, the stage of the disease is based on the level of kidney function: Stage Description GFR(mL/min/1.73 m(2)) 1 Kidney damage with normal or decreased GFR 90 2 Kidney damage with mild decrease in GFR 60-89 3 Moderate decrease in GFR 30-59 4 Severe decrease in GFR 15-29 5 Kidney failure <15 (or dialysis) 22 Test Performed by: [place] [id number] Business Development Intern: Francisco Lui III, M.D. Procedures Date CPT Code Description Status 02/15/2017 Colonoscopy Completed 11/09/2016 Colonoscopy Completed 08/05/2008 86597 Echocardiogram, Limited Study Completed 08/05/2008 77618 ECHO Transthorasic Realtime 2D W Doppler & Color Completed Flow Hosp Encounters Type Date Location Provider CPT E/M Dx Office Visit 06/21/2017 9:00a [facility] [place] [address] S01.81xD - [place] R55 Office Visit 06/05/2017 10:00a [facility] [address] G40.219 Z79.899 Office Visit 01/31/2017 2:00p [facility] [address] G40.219 Z79.899 Office Visit 12/16/2016 1:40p [facility] [place] [address] S61.012D - [place] Office Visit 11/18/2016 9:00a [facility] Andrea Painter, 37879 G40.909 Assoc,pc Hospitalists M.D. Office Visit 11/17/2016 8:59a [facility] Susan Mckinney, 14342 G40.909 Assoc,pc Hospitalists M.D. Office Visit 10/25/2016 10:00a [facility] [place] [address] Z71.89 - [place] E66.3 Z12.11 Z13.220 Z13.1 R60.0 Office Visit 09/30/2016 2:30p [facility] [address] G40.219 Z79.899 Office Visit 07/25/2016 4:00p [facility] [place] [address] G40.219 [place] T24.012D T24.011D Office Visit 07/21/2016 2:30p [place] [address] G40.219 Services Of Farm General Manager G47.00 Office Visit 06/13/2016 10:30[place] [address] G40.219 Services Of Farm General Manager G47.00 Z79.899 Office Visit 03/11/2016 4:00p [place] [address] G40.219 Services Of Farm General Manager G47.00 Z79.899 G56.22 Office Visit 11/06/2015 2:00[place] [address] G40.219 Services Of [employer] General Manager G47.00 Z79.899 Office Visit 07/14/2015 11:00[place] [address] G40.219 Services Of [employer] General Manager Office Visit 03/23/2015 4:00p [place] [address] G40.219 Services Of Farm General Manager Office Visit 12/16/2014 2:30[place] [address] G40.219 Services Of [employer] General Manager Office Visit 10/21/2014 3:00[place] [address] 345.41 Services Of Farm General Manager Office Visit 10/01/2014 3:00p [place] Turner Perdomo 18282 345.41 Services Of Farm General Manager M.D. 345.91 Office Visit 07/01/2014 8:45a [place] [facility] Marino Perdomo 74089 345.41 Services Of Farm General Manager M.D. Office Visit 12/17/2013 8:45a [place] [facility] Marino Perdomo 49034 345.40 Services Of Farm General Manager M.D. Office Visit 06/19/2013 8:45a [place] [facility] Marino Perdomo 33243 345.40 Services Of Farm General Manager M.D. 782.1 Office Visit 12/12/2012 8:30a [place] Turner Perdomo 66833 345.40 Services Of Farm General Manager M.D. Office Visit 06/13/2012 11:30a [place] Turner Perdomo 87554 345.40 Services Of [facility] M.D. Office Visit 03/14/2012 8:45a [place] [facility] Marino Adamsney, 39520 345.41 Services Of [facility] M.D. Office Visit 12/07/2011 8:45a [place] [facility] Marino Calwdellffney, 60488 345.40 Services Of [facility] M.D. Office Visit 11/03/2011 9:15a [place] [facility] Marino HuangIndia Leanne, 65351 345.40 Services Of [facility] M.D. Office Visit 08/07/2008 1:15a [facility] Assoc,pc Andrea Painter, 84541 780.97 Hospitalists M.D. 312.00 Office Visit 08/06/2008 12:15a [facility] Assoc, Kavita Stallworth, 68934 276.51 Hospitalists M.D. 312.00 Office Visit 08/05/2008 12:30a [facility] Assoc, Kavita Stallworth, 67146 V46.11 Hospitalists M.D. 780.97 v46.11 518.81 Office Visit 08/04/2008 [facility] 03304 780.97 Assoc, Hospitalists M.D. Office Visit 08/03/2008 12[facility] 27600 780.97 Assoc, Hospitalists M.D. 780.39 Plan of Care Future Appointment(s):10/23/2017 9:20 am - Mike Dickinson NP at [facility] Internal Medicine - Vxnbqqajq27/11/2018 10:30 am - Alannah Ortega MD at Neuro[facility]ist Totfhg8806/21/2017 - Mike Dickinson, NPS01.81xD Laceration w/o foreign body of oth part of head, subs encntrComments:Continue to monitor the area for increased pain, drainage, or other new symptoms.Follow up:PE in Syncope and collapseComments:If you have any further episodes like the one at [facility] I would strongly encourage you to have the testing done that has been recommended.
--- OUTSIDE RECORDS SUMMARY | 2017-07-05 08:20 | XMS REPORT ---
:1965 External Reference #:[id number] Author Organization [facility] [employer] Address [address] [address] Phone [phone] Care Team Providers Name Role Phone Miroslava Castillo MD Primary Care Physician Unavailable Payers Type Date Identification Numbers Payment Provider Subscriber Medicare Primary Policy Number: [id number] Medicare Tatyana Rodrigues PayID: [id number] [address] [place] [address] Medigap Part B Expires: 2015 Policy Number: [id number] Medicaid Tatyana Rodrigues Group Name: 1 1 [address] PayID: [id number] [place] [address] Medigap Part B Policy Number: [id number] Medicaid Tatyana Rodrigues PayID: [id number] [address] [place] [address] Problems Date Description Provider Status Onset: 07/01/2014 [...] Strength Qnty SIG Indications Ordering Provider Onfi 07/28/ Active Tablets 10mg 45tab 1/2 tablet G40.219 Alannah 2017 s in the MD Shannon morning and 1 tab by mouth at bedtime Vimpat 11/05/ Active Tablets 100mg 30tab 1 by mouth G40.219 Marino Huang. 2015 s in the [place], morning M.D. with your 200mg tablet MDD 1 Vimpat 05/24/ Active Tablets 200mg 60tab 1 tab by G40.219 Alannah 2015 s mouth MD Shannon twice a day Multi Vitamin / Active Tablets 1 po qd Unknown Mens 0000 Depakote / Active Tablets DR 500mg 90tab 3 tab by G40.219 Marino Huang. s mouth at [place], at bedtime M.D. Divalproex 07/21/ Hx Tablets ER 250mg 30tab 1 tablet G40.219 Alannah Sodium ER 2017 - 24HR s at night MD Shannon 07/07/ with 3 2017 500mg tablets Onfi 06/13/ Hx Tablets 10mg [...] Tablets ER 500mg 120ta take 4 by G40.219 Alannah 2014 - 24HR bs mouth at MD Shannon 07/28/ night 2016 Depakote ER 10/01/ Hx Tablets ER 500mg 60tab 2 every Marino Bergeron 2014 - 24HR s night at [place], 12/16/ bedtime M.D. 2014 Oxcarbazepine 01/11/ Hx Tablets 300mg 120ta 2 tabs by Marino Bergeron 2011 - sisi mouth Leanne, 07/12/ twice a M.D. 2016 day Oxcarbazepine 12/06/ Hx Tablets 150mg 180ta 3 twice a Marino Bergeron 2011 - sisi Perdomo 01/11/ Kaleb 2011 Triamcinolone / Hx Ointment 0.1% apply Jay[place]ob Acetonide 0000 - topically MD Андрей to 2015 affected area prn. Potassium 00/ Hx Tablets 99mg 2 tabs po Unknown Gluconate 0000 - bid 2014 Ibuprofen /00/ Hx Capsules 200mg as needed Unknown 0000 - 2015 Albuterol / Hx Nebulizer (2.5mg/3ML 1 vial via Unknown Sulfate 0000 - ) 0.083% nebulizer times 2017 daily as needed Diclofenac 00/ Hx Tablets DR 50mg take one Unknown Sodium 0000 - po bid as needed for 2017 pain Oxycodone-Aceta / Hx Tablets 5-325mg 1-2 by Unknown minophen 0000 - mouth 09/29/ every 4 2017 hours as needed pain Senna S / Hx Tablets 8.6-50mg 2 by mouth Unknown 0000 - qd as needed 2017 Vital Signs Date Vital Result Comment 06/05/2017 Height 70 inches 5'10" Weight 200.12 [...] Test Date Test Result H/L Range Note Laboratory test 02/15/2017 Surgical Interface SEE RESULT BELOW 1 finding Order Laboratory test 07/27/2016 Valproic Acid 78.0 g/mL 50-100 2, 3 finding (Depakene) Comp Metabolic Panel 03/18/2016 Sodium [...] Egfr Non- 113.7 >60 Egfr 146.3 >60 4 CBC Auto Diff 03/18/2016 White Blood Count [...] 03/18/2016 Lacosamide 6.9 g/mL 1.0 - 10.0 5 Valproic Acid (Depakene) 107.0 g/mL High 50-100 6 CBC Auto Diff 07/20/2015 White Blood Count [...] 07/20/2015 Lacosamide 5.9 g/mL 1.0 - 10.0 7 Laboratory test finding 05/05/2015 Sodium 135 mmol/L 133-145 Comp Metabolic Panel 12/25/2014 Sodium 123 mmol/L Low 133-145 8 Potassium 4.4 mmol/L 3.5-5.0 8 Chloride 90 mmol/L Low 101-111 8 Co2 Carbon Dioxide 28 mmol/L 22-32 8 Anion Gap 5 mmol/L 2-11 8 Glucose 74 mg/dL 70-100 8 Blood Urea Nitrogen 11 mg/dL 6-24 8 Creatinine 0.66 mg/dL Low 0.67-1.17 8 BUN/Creatinine Ratio 16.7 8-20 8 Calcium 9.3 mg/dL 8.6-10.3 8 Total Protein 6.7 g/dL 6.4-8.9 8 Albumin 4.3 g/dL 3.2-5.2 8 Globulin 2.4 g/dL 2-4 8 Albumin/Globulin Ratio 1.8 1-3 8 Total Bilirubin 0.40 mg/dL 0.2-1.0 8 Alkaline Phosphatase 79 U/L 34-104 8 Alt 15 U/L 7-52 8 Ast 20 U/L 13-39 8 Egfr Non- 128.3 >60 8 Egfr 165.0 >60 8, 9 Laboratory test 12/25/2014 Valproic Acid 28.0 g/mL Low 50-100 8, 10 finding (Depakene) Comp Metabolic Panel 11/21/2014 Sodium 132 mmol/L Low 133-145 11 Potassium 5.2 mmol/L High 3.5-5.0 11 Chloride 97 mmol/L Low 101-111 11 Co2 Carbon Dioxide 30 mmol/L 22-32 11 Anion Gap 5 mmol/L 2-11 11 Glucose 107 mg/dL High 70-100 11 Blood Urea Nitrogen 8 mg/dL 6-24 11 Creatinine 0.71 mg/dL 0.67-1.17 11 BUN/Creatinine Ratio 11.3 8-20 11 Calcium 9.6 mg/dL 8.6-10.3 11 Total Protein 6.9 g/dL 6.4-8.9 11 Albumin 4.3 g/dL 3.2-5.2 11 Globulin 2.6 g/dL 2-4 11 Albumin/Globulin Ratio 1.7 1-3 11 Total Bilirubin 0.50 mg/dL 0.2-1.0 11 Alkaline Phosphatase 92 U/L 34-104 11 Alt 18 U/L 7-52 11 Ast 21 U/L 13-39 11 Egfr Non- 117.9 >60 11 Egfr 151.6 >60 11, 12 Laboratory test 11/03/2014 Trileptal (Oxcarbazepine) 11 g/mL 3 - 35 13 , 14 finding Valproic Acid (Depakene) 27.0 g/mL Low 50-100 13 CMP Panel 11/03/2014 Sodium 123 mmol/L Low 133-145 13 Potassium 4.6 mmol/L 3.5-5.0 13 Chloride 89 mmol/L Low 101-111 13 Co2 Carbon Dioxide 29 mmol/L 22-32 13 Anion Gap 5 mmol/L 2-11 13 Glucose 119 mg/dL High 70-100 13 Blood Urea Nitrogen 5 mg/dL Low 6-24 13 Creatinine 0.63 mg/dL Low 0.67-1.17 13 BUN/Creatinine Ratio 7.9 Low 8-20 13 Calcium 9.2 mg/dL 8.6-10.3 13 Total Protein 6.7 g/dL 6.4-8.9 13 Albumin 4.1 g/dL 3.2-5.2 13 Globulin 2.6 g/dL 2-4 13 Albumin/Globulin Ratio 1.6 1-3 13 Total Bilirubin 0.30 mg/dL 0.2-1.0 13 Alkaline Phosphatase 84 U/L 34-104 13 Alt 16 U/L 7-52 13 Ast 18 U/L 13-39 13 Egfr Non- 135.4 >60 13 Egfr 174.1 >60 13, 15 CBC W/Auto Diff 11/03/2014 White Blood Count 11.1 10^3/uL High 4.8-10.8 13 Red Blood Count 4.54 10^6/uL 4.0-5.4 13 Hemoglobin 14.3 g/dL 14.0-18.0 13 Hematocrit 42 % 42-52 13 Mean Corpuscular Volume 93 fL 80-94 13 Mean Corpuscular Hemoglobin 32 pg High 27-31 13 Mean Corpuscular HGB Conc 34 g/dL 31-36 13 Red Cell Distribution Width 13 % 10.5-15 13 Platelet Count 423 10^3/uL 150-450 13 Mean Platelet Volume 7 um3 Low 7.4-10.4 13 Abs Neutrophils 8.1 10^3/uL High 1.5-7.7 13 Abs Lymphocytes 2.0 10^3/uL 1.0-4.8 13 Abs Monocytes 0.7 10^3/uL 0-0.8 13 Abs Eosinophils 0.2 10^3/uL 0-0.6 13 Abs Basophils 0.1 10^3/uL 0-0.2 13 Abs Nucleated RBC 0 10^3/uL 13 Granulocyte % 73.0 % 38-83 13 Lymphocyte % 18.0 % Low 25-47 13 Monocyte % 6.2 % 1-9 13 Eosinophil % 1.9 % 0-6 13 Basophil % 0.9 % 0-2 13 Nucleated Red Blood Cells % 0 13 Laboratory test finding 10/02/2013 Oxcarbazepine 13 g/mL 3 - 35 16 Laboratory test finding 06/19/2013 Oxcarbazepine 17 g/mL 3 - 35 17 Basic Metabolic Panel 12/10/2012 Sodium 131 mmol/L Low 133-145 Potassium 4.4 mmol/L 3.5-5.0 Chloride 96 mmol/L Low 101-111 Co2 Carbon Dioxide 30.0 mmol/L 22-32 Anion Gap 5.0 mmol/L 2-11 Glucose 98 mg/dL 70-100 Blood Urea Nitrogen 6 mg/dL 6-24 Creatinine 0.80 mg/dL 0.50-1.40 BUN/Creatinine Ratio 7.5 Low 8-20 Calcium 9.5 mg/dL 8.1-9.9 Egfr Non- 103.6 >60 Egfr 133.3 >60 18 Laboratory test finding 12/10/2012 Carbamazepine < 0.2 g/mL Low 4.0- 12.0 19 CBC With Manual Diff 12/10/2012 White Blood [...] Egfr Non- 104.1 >60 Egfr 133.8 >60 20 Laboratory test finding 06/06/2012 Oxcarbazepine 15 g/mL 3 - 35 21 1 SEE RESULT BELOW Name: TATYANA RODRIGUES : [address]: Prema Murphy DO Acct: [id number] Unit: [id number] AGE: 51 Location: OR Re02/15/17 SEX: M Status: LUNA CARVER SPEC: [id number] JOVITA: 02/15/17- SUBM DR: Prema Murphy DO REQ: [id number] RECD: 02/15/17 STATUS: TEJA MONET DR: Mike Dickinson [facility] MEDICAL AND LAB DIRECTOR _ ORDERED: LEVEL 4/3 FINAL DIAGNOSIS 1. [...] performed at Main Lab DEPARTMENT OF PATHOLOGY, [address] [place] [address] Lobo Ventura M.D. Director [facility] # [id number] RUN DATE: 02/17/17 [facility] LAB LIVE PAGE 2 Patient: TATYANA RODRIGUES [id number] (Continued) GROSS DESCRIPTION (Continued) GROSS DESCRIPTION (Continued) cm. The larger fragment is inked, trisected and the specimen is entirely submitted in one cassette. Signed (signature on file) Deana Jose MD 1058 END OF REPORT * ML=Testing performed at Main Lab DEPARTMENT OF PATHOLOGY, [address] [place] [address] Lobo Ventuar M.D. Director [facility] # [id number] [facility] , Room Number 106 3 [id number] [facility] , Room Number 106 4 Because ethnic data is not always readily [...] 15-29 5 Kidney failure <15 (or dialysis) 5 ADDITIONAL INFORMATION This test was developed and its performance characteristics determined by [facility] in a manner consistent with CLIA requirements. This test has not been cleared or approved by the U.S. Food and Drug Administration. Test Performed by: [facility] [place] [address] Sales Marketing Manager: Ayo Dennis II, M.D., Ph.D. 6 Draw prior to AM dose of medication 7 Test Performed by: [facility] [place] [address] Sales Marketing Manager: Ayo Dennis II, M.D., Ph.D. 8 Draw prior to AM dose of medication Copy Result to: АНДРЕЙ HERNANDEZ ( [id number]) 9 Because ethnic data is not always readily [...] 15-29 5 Kidney failure <15 (or dialysis) 10 Draw prior to AM dose of medication Copy Result to: АНДРЕЙ HERNANDEZ ([id number]) 11 possible hemolysis, sodium improved 12 Because ethnic data is not always readily [...] 15-29 5 Kidney failure <15 (or dialysis) [address] ESCALERA'S OFFICE 14 Test Performed by: [place] [address] Sales Marketing Manager: Ayo Dennis II, M.D., Ph.D. 15 Because ethnic data is not always readily [...] 15-29 5 Kidney failure <15 (or dialysis) 16 Test Performed by: [place] [address] Sales Marketing Manager: Francisco Lui III, M.D. 17 Test Performed by: [place] [address] Sales Marketing Manager: Francisco Lui III, M.D. 18 Because ethnic data is not always readily [...] 15-29 5 Kidney failure <15 (or dialysis) 19 LAST DOSE 12/09/12 2400 20 Because ethnic data is not always readily [...] 15-29 5 Kidney failure <15 (or dialysis) 21 Test Performed by: [place] [id number] Sales Marketing Manager: Francisco Lui III, M.D. Procedures Date CPT Code Description Status 02/15/2017 Colonoscopy Completed 11/09/2016 Colonoscopy Completed 08/05/2008 85674 Echocardiogram, Limited Study Completed 08/05/2008 55651 ECHO Transthorasic Realtime 2D W Doppler & Color Completed Flow Hosp Encounters Type Date Location Provider CPT E/M Dx Office Visit 01/31/2017 [facility] [address] G40.219 2:00p Z79.899 Office Visit 12/16/2016 1:40p [facility] [place] [address] S61.012D [facility] Office Visit 11/18/2016 9:00a [facility] Andrea Painter 66400 G40.909 Assoc,pc Hospitalists M.D. Office Visit 11/17/2016 8:59a [facility] Susan Mckinney, 79650 G40.909 Assoc,pc Hospitalists M.D. Office Visit 10/25/2016 10:00a [facility] [place] [address] Z71.89 - [place] E66.3 Z12.11 Z13.220 Z13.1 R60.0 Office Visit 09/30/2016 2:30p [facility] [address] G40.219 Z79.899 Office Visit 07/25/2016 4:00p [facility] [place] [address] G40.219 [place] T24.012D T24.011D Office Visit 07/21/2016 2:30p [facility] [place] [address] G40.219 Services Of Sales Support Coordinator G47.00 Office Visit 06/13/2016 10:30a [facility] [place] [address] G40.219 Services Of Sales Support Coordinator G47.00 Z79.899 Office Visit 03/11/2016 4:00p [facility] [place] [address] G40.219 Services Of Sales Support Coordinator G47.00 Z79.899 G56.22 Office Visit 11/06/2015 2:00p [facility] [place] [address] G40.219 Services Of Sales Support Coordinator G47.00 Z79.899 Office Visit 07/14/2015 11:00a [facility] [place] [address] G40.219 Services Of Sales Support Coordinator Office Visit 03/23/2015 4:00p [facility] [place] [address] G40.219 Services Of Sales Support Coordinator Office Visit 12/16/2014 2:30[place] [address] G40.219 Services Of Sales Support Coordinator Office Visit 10/21/2014 3:00p [place] [address] 345.41 Services Of Sales Support Coordinator Office Visit 10/01/2014 3:00p [facility] Marino Perdomo 77429 345.41 Services Of [facility] Kaleb 345.91 Office Visit 07/01/2014 8:45a [facility] Marino Caldwellffney, 11585 345.41 Services Of Sales Support Coordinator M.D. Office Visit 12/17/2013 8:45a [facility] Marino Caldwellffney, 48706 345.40 Services Of Sales Support Coordinator M.D. Office Visit 06/19/2013 8:45a [facility] Marino Perdomo, 67870 345.40 Services Of Sales Support Coordinator M.D. 782.1 Office Visit 12/12/2012 8:30a [facility] Marino HuangIndia Leanne, 57433 345.40 Services Of Sales Support Coordinator M.D. Office Visit 06/13/2012 11:30a [facility] Marino Perdomo, 09103 345.40 Services Of Sales Support Coordinator M.D. Office Visit 03/14/2012 8:45a [facility] Marino Caldwellffney, 73903 345.41 Services Of Sales Support Coordinator M.D. Office Visit 12/07/2011 8:45a [facility] Marino HuangIndia [place], [address]052 345.40 Services Of Sales Support Coordinator M.D. Office Visit 11/03/2011 9:15a [facility] Marino Adamsney, 50566 345.40 Services Of Sales Support Coordinator M.D. Office Visit 08/07/2008 1:15a [facility], Andrea Painter, 11166 780.97 Hospitalists M.D. 312.00 Office Visit 08/06/2008 12:15a [facility], Kavita Stallworth, 32656 276.51 Hospitalists M.D. 312.00 Office Visit 08/05/2008 12:30a [facility], Kavita Stallworth, 95473 V46.11 Hospitalists M.D. 780.97 v46.11 518.81 Office Visit 08/04/2008 1:15a [facility] Tiara Tirlisa, 22555 780.97 Assoc, Hospitalists M.D. Office Visit 08/03/2008 12:15a [facility] Tiara Tiru, 08986 780.97 Assoc, Hospitalists M.D. 780.39 Plan of Care Future Appointment(s):08/14/2017 10:30 am - [facility] - Alannah Ortega MDG40.219 Local-rel symptc epi w cmplx part seiz , ntrct, w/o stat epiFollow up:: 8 WEEKSRecommendations:I'll email the VNS reps about costs with Medicaid. We talked about the fact that I'm leaving in Septemberso if you got the VNS Dr Barry would need to manage it. I still get the impression that you're notsure you want to do this even if it didn't cost you anything. Increase Onfi to 5mg in the morning, stay on 10mg at night. I reordered this medicine today Get your blood tcgrmJ45.899 Other usp ( current) drug therapy
[2017-07-05 08:27] VITALS: BP 155/89
--- NOTE | 2017-07-05 09:03 | RAD ---
Indication: RIGHT knee pain post fall. Medial pain. Possible hyperextension injury. Question seizure. Comparison: None. Technique: RIGHT knee: AP, tunnel, lateral, sunrise views. Report: Negative for joint effusion, fracture, or malalignment. Minimal osteophytosis. Negative for joint space narrowing. Suggestion of subtle chondrocalcinosis of the hyaline articular cartilage at the femoral condyles. Mild anterior soft tissue swelling. IMPRESSION: 1. Mild anterior soft tissue swelling. Negative for joint effusion or fracture. 2. Kellgren and Braden grade 1 osteoarthritis.
--- NOTE | 2017-07-05 09:05 | UC ---
Knee Pain HPI - HPI Summary HPI Summary: PATIENT WAS IN HIS KITCHEN YESTERDAY MORNING WHEN HE FELL BACKWARDS AND THINKS HE HYPEREXTENDED HIS RIGHT KNEE. PATIENT NOW HAS PAIN WITH AMBULATION AND SOME SWELLING. OF NOTE PATIENT HAS A KNOWN SEIZURE DISORDER AND THINKS THAT HE MAY HAVE HAD A BREAKTHROUGH SEIZURE WHICH CAUSED HIM TO FALL. HE IS NOT HERE FOR EVALUATION OF HIS SEIZURES. HE FOLLOWS WITH NEUROLOGY. HE DENIES ANY HEAD INJURY OR LOC. ACCOMPANIED BY MOM TODAY. - History of Current Complaint Chief Complaint: UCLowerExtremity Stated Complaint: KNEE INJURY Time Seen by Provider: 07/05/17 08:32 Hx Obtained From: Patient Onset/Duration: Sudden Onset, Lasting Days - 1 DAY, Still Present Severity Initially: Moderate Severity Currently: Moderate Pain Intensity: 6 Pain Scale Used: 0-10 Numeric Character: Sharp Aggravating Factor(s): Movement, Weight Bearing Alleviating Factor(s): Rest Associated Signs And Symptoms: Positive: Swelling Able to Bear Weight: Yes - WITH PAIN - Allergies/Home Medications Allergies/Adverse Reactions: Allergies Allergy/AdvReac Type Severity Reaction Status Date / Time No Known Allergies Allergy Verified 02/15/17 13:59 PMH/Surg Hx/FS Hx/Imm Hx Neurological History: Seizures - Surgical History Surgical History: Yes Surgery Procedure, Year, and Place: SKIN GRAFTING IN [place] -yr ago r/t [facility] - Family History Known Family History: Positive: Hypertension - Social History Alcohol Use: None Substance Use Type: Marijuana Substance Use Comment - Amount & Last Used: daily usage Smoking Status (MU): Former Smoker Amount Used/How Often: 1 pack/ day Have You Smoked in the Last Year: Yes When Did the Patient Quit Smoking/Using Tobacco: 06/2016 Household Exposure Type: Cigarettes - Immunization History Most Recent Influenza Vaccination: unknown Most Recent Tetanus Shot: 06/2016 Most Recent Pneumonia Vaccination: unknown Review of Systems Constitutional: Negative Skin: Negative Respiratory: Negative Cardiovascular: Negative Gastrointestinal: Negative Musculoskeletal: Arthralgia, Decreased ROM, Edema All Other Systems Reviewed And Are Negative: Yes Physical Exam Triage Information Reviewed: Yes Appearance: Well-Appearing, No Pain Distress, Well-Nourished Vital Signs: Initial Vital Signs Temp 97.9 F 07/05/17 08:21 Pulse 79 07/05/17 08:21 Resp 18 07/05/17 08:21 BP 155/89 07/05/17 08:21 Pulse Ox 99 07/05/17 08:21 Vital Signs Reviewed: Yes Eyes: Positive: Conjunctiva Clear ENT: Positive: Hearing grossly normal Neck: Positive: Supple Respiratory: Positive: No respiratory distress, No accessory muscle use Cardiovascular: Positive: Pulses Normal Musculoskeletal: Positive: ROM Limited @ - RIGHT KNEE, Edema @ - RIGHT KNEE SWELLING, Other: - RIGHT KNEE EXAM LIMITED DUE TO PT DISCOMFORT. MEDIAL JOINT LINE TENDERNESS. NO TENDERNESS OVER ANY BONY PROMINENCES. MCL AND LCL INTACT TO STRESS TESTING. NEG DRAWERS SIGNS. NO TENDERNESS OVER PATELLAR LIGAMENT OR QUADRICEPS TENDON. DECREASED ROM (FLEXION AND EXTENSION). Neurological: Positive: Alert Psychological: Positive: Age Appropriate Behavior Skin: Negative: rashes Diagnostics - Radiology RIGHT KNEE XRAY Xray Interpretation: Positive (See Comments) - 1. Mild anterior soft tissue swelling. Negative for joint effusion or fracture. 2. Kellgren and Braden grade 1 osteoarthritis. Radiology Interpretation Completed By: Radiologist Knee Pain Course/Dx - Differential Dx/Diagnosis Provider Diagnoses: 1. RIGHT KNEE SPRAIN. 2. RIGHT KNEE OSTEOARTHRITIS Discharge - Sign-Out/Discharge Documenting (check all that apply): Discharge/Admit/Transfer - Discharge Plan Condition: Stable Disposition: HOME Patient Education Materials: Knee Sprain (ED) Referrals: Mike Dickinson EDGE PLUGGER [Primary Care Provider] - If Needed Additional Instructions: X-RAYS TODAY SHOW SOFT TISSUE SWELLING AND OSTEOARTHRITIS. LENKA WRAP FOR SUPPORT. REST, ICE, COMPRESS, ELEVATE. OTC MEDS NEEDED FOR DISCOMFORT. FOLLOW-UP WITH PCP IF NOT IMPROVING EXPECTED OVER THE NEXT 1-2 WEEKS. FOLLOW-UP WITH YOUR NEUROLOGIST FOR YOUR SEIZURE DISORDER. - Billing Disposition and Condition Condition: STABLE Disposition: HOME
== END 2017-07-05 09:21 | disposition home or self-care (01) ==
LOC: UCEAST 08:13
DX: S83.91XA Sprain of unspecified site of right knee, initial encounter (principal); W18.30XA Fall on same level, unspecified, initial encounter; Y93.9 Activity, unspecified; Y92.000 Kitchen of unspecified non-institutional (private) residence as the place of occurrence of the external cause; M17.11 Unilateral primary osteoarthritis, right knee; G40.909 Epilepsy, unspecified, not intractable, without status epilepticus; Z87.891 Personal history of nicotine dependence
CPT/HCPCS: 99212; G0463

== ENCOUNTER 2018-08-31 17:43 | Emergency (ER) | payer MEDICARE ==
[2018-08-31 18:26] LABS: ABS Basophils 0.1 10^3/ul (0-0.2); ABS Eosinophils 0.1 10^3/ul (0-0.6); ABS Lymphocytes 1.8 10^3/ul (1.0-4.8); ABS Monocytes 0.5 10^3/ul (0-0.8); ABS Neutrophils 5.4 10^3/ul (1.5-7.7); Eosinophil % 1.2 %; Hematocrit 43 % (42-52); Hemoglobin 14.6 g/dL (14.0-18.0); Lymphocyte % 23.3 %; Mean Corpuscular HGB Conc 34 g/dL (31-36); Mean Corpuscular Hemoglobin 33 pg (27-31); Mean Corpuscular Volume 95 fL (80-94); Mean Platelet Volume 8.6 fL (7.4-10.4); Nucleated Red Blood Cells % 0.1; Platelet Count 244 10^3/uL (150-450); Red Blood Count 4.51 10^6 /uL (4.18-5.48); Red Cell Distribution Width 15 % (10-15); White Blood Count 7.9 10^3/uL (3.5-10.8)
[2018-08-31 18:48] LABS: Albumin 3.9 g/dL (3.2-5.2); Albumin/Globulin Ratio 1.3 (1-3); BUN/Creatinine Ratio 14.7 (8-20); C Reactive Protein 8.77 mg/L (<8.01); Calcium 9.4 mg/dL (8.6-10.3); EGFR African American 132.3 (>60); EGFR Non-African American 109.4 (>60); Globulin 3.1 g/dL (2-4); Potassium 4.1 mmol/L (3.5-5.0); Total Bilirubin 0.4 mg/dL (0.2-1.0)
[2018-08-31 19:17] LABS: TSH (Thyroid Stimulating Horm) 2.34 mcIU/mL (0.34-5.60)
[2018-08-31 20:19] LABS: Urine Appearance Cloudy; Urine Bilirubin Negative (Negative); Urine Blood Negative (Negative); Urine Color Yellow; Urine Glucose Negative (Negative); Urine Ketones 1+ (Negative); Urine Nitrite Negative (Negative); Urine Protein Negative (Negative); Urine Urobilinogen Negative (Negative)
--- NOTE | 2018-08-31 20:41 | ED ---
Seizure - HPI Summary HPI Summary: Patient brought by EMS for episode of seizure. History of same. Patient states he blacked out while walking today. Patient has swollen nose and abrasion to bilateral knees. Denies any other injury pain or symptoms prior to seizure. Compliant with medications. States history of seizure once a week over the past couple months. Denies Cough, sore throat, CP, SOB, N/V/D, abdominal pain, change in urine, change in BM, vision change, headache. - History Of Current Complaint Chief Complaint: EDSeizure Time Seen by Provider: 08/31/18 17:54 Hx Obtained From: Patient Onset/Duration: Sudden Onset Aggravating Factor(s): Nothing Alleviating Factor(s): Spontaneous Resolution Associated Signs And Symptoms: Negative - Allergies/Home Medications Allergies/Adverse Reactions: Allergies Allergy/AdvReac Type Severity Reaction Status Date / Time No Known Allergies Allergy Verified 02/15/17 13:59 Home Medications: Home Medications Divalproex DR TAB(*) [Depakote DR(*)] 1,500 mg PO BEDTIME 08/31/18 [History Confirmed 08/31/18] Multivitamin with Minerals [One Daily Complete] 1 each PO DAILY 08/31/18 [ History Confirmed 08/31/18] PMH/Surg Hx/FS Hx/Imm Hx Endocrine/Hematology History: Denies: Hx Diabetes Cardiovascular History: Denies: Hx Pacemaker/ICD GI History: Reports: Hx Gastroesophageal Reflux Disease History: Denies: Hx Dialysis Sensory History: Denies: Hx Contacts or Glasses, Hx Hearing Aid Opthamlomology History: Denies: Hx Contacts or Glasses Neurological History: Reports: Hx Seizures - ON MEDICATIONS Psychiatric History: Denies: Hx Autism, Hx of Violent Episodes Against Others - Surgical History Surgery Procedure, Year, and Place: SKIN GRAFTING IN [place] -yr ago r/t [facility] Hx Anesthesia Reactions: No - Immunization History Date of Tetanus Vaccine: unsure Date of Influenza Vaccine: unsure Infectious Disease History: No Infectious Disease History: Denies: History Other Infectious Disease, Traveled Outside the [place] in Last 30 Days - Family History Known Family History: Positive: Hypertension - Social History Alcohol Use: Occasionally Substance Use Type: Reports: None Substance Use Comment - Amount & Last Used: daily usage Smoking Status (MU): Light Every Day Tobacco Smoker Amount Used/How Often: 1 pack/ day Have You Smoked in the Last Year: Yes Review of Systems Constitutional: Negative Eyes: Negative ENT: Negative Cardiovascular: Negative Respiratory: Negative Gastrointestinal: Negative Genitourinary: Negative Musculoskeletal: Negative Skin: Negative Neurological: Negative Psychological: Normal All Other Systems Reviewed And Are Negative: Yes Physical Exam - Summary Physical Exam Summary: Neuro exam normal. Full range of motion of jaw and neck. No pain with palpation of head, neck, back, chest, abdomen. Patient is also extremities freely. No evidence of trauma to mouth. Triage Information Reviewed: Yes Vital Signs On Initial Exam: Initial Vitals Temp Pulse Resp BP Pulse Ox 98.3 F 79 17 132/83 96 08/31/18 17:47 08/31/18 17:47 08/31/18 17:47 08/31/18 17:47 08/31/18 17:47 Vital Signs Reviewed: Yes Appearance: Positive: Well-Appearing Skin: Positive: Warm Head/Face: Positive: Normal Head/Face Inspection Eyes: Positive: Normal ENT: Positive: Normal ENT inspection Dental: Negative: Dental Fracture @, Bleeding Neck: Positive: Supple Respiratory/Lung Sounds: Positive: Clear to Auscultation Cardiovascular: Positive: Normal Abdomen Description: Positive: Nontender Musculoskeletal: Positive: Normal Neurological: Positive: Normal Psychiatric: Positive: Normal AVPU Assessment: Alert - [place] Coma Scale Best Eye Response: 4 - Spontaneous Best Motor Response: 6 - Obeys Commands Best Verbal Response: 5 - Oriented Coma Scale Total: 15 Diagnostics - Vital Signs Vital Signs Temp Pulse Resp BP Pulse Ox 08/31/18 19:29 70 20 132/87 96 08/31/18 19:00 14 08/31/18 18:21 69 20 95 08/31/18 17:47 98.3 F 79 17 132/83 96 - Laboratory Lab Results: Lab Results 08/31/18 08/31/18 08/31/18 Range/Units 18:11 18:18 18:18 WBC 7.9 (3.5-10.8) 10^3/uL RBC 4.51 (4.18-5.48) 10^6 /uL Hgb 14.6 (14.0-18.0) g/dL Hct 43 (42-52) % MCV 95 H (80-94) fL MCH 33 H (27-31) pg MCHC 34 (31-36) g/dL RDW 15 (10-15) % Plt Count 244 (150-450) 10^3/uL MPV 8.6 (7.4-10.4) fL Neut % (Auto) 68.3 % Lymph % (Auto) 23.3 % [place] % (Auto) 6.2 % Eos % (Auto) 1.2 % Baso % (Auto) 1.0 % Absolute Neuts (auto) 5.4 (1.5-7.7) 10^3/ul Absolute Lymphs (auto) 1.8 (1.0-4.8) 10^3/ul Absolute Monos (auto) 0.5 (0-0.8) 10^3/ul Absolute Eos (auto) 0.1 (0-0.6) 10^3/ul Absolute Basos (auto) 0.1 (0-0.2) 10^3/ul Absolute Nucleated RBC 0.0 10^3/ul Nucleated RBC % 0.1 Sodium 139 (135-145) mmol/L Potassium 4.1 (3.5-5.0) mmol/L Chloride 106 (101-111) mmol/L Carbon Dioxide 27 (22-32) mmol/L Anion Gap 6 (2-11) mmol/L BUN 11 (6-24) mg/dL Creatinine 0.75 (0.67-1.17) mg/dL Est GFR ( Amer) 132.3 (>60) Est GFR (Non-Af Amer) 109.4 (>60) BUN/Creatinine Ratio 14.7 (8-20) Glucose 92 (70-100) mg/dL Lactic Acid 0.7 (0.5-2.0) mmol/L Calcium 9.4 (8.6-10.3) mg/dL Total Bilirubin 0.40 (0.2-1.0) mg/dL AST 26 (13-39) U/L ALT 25 (7-52) U/L Alkaline Phosphatase 65 (34-104) U/L Troponin I 0.00 (<0.04) ng/mL C-Reactive Protein 8.77 H (<8.01) mg/L Total Protein 7.0 (6.4-8.9) g/dL Albumin 3.9 (3.2-5.2) g/dL Globulin 3.1 (2-4) g/dL Albumin/Globulin Ratio 1.3 (1-3) TSH 2.34 (0.34-5.60) mcIU/mL Urine Color Urine Appearance Urine pH (5-9) Ur Specific [place] (1.010-1.030) Urine Protein (Negative) Urine Ketones (Negative) Urine Blood (Negative) Urine Nitrate (Negative) Urine Bilirubin (Negative) Urine Urobilinogen (Negative) Ur Leukocyte Esterase (Negative) Urine Glucose (Negative) Urine Ascorbic Acid (Negative) Valproic Acid 69.0 (50-100) mcg/mL 08/31/18 Range/Units 20:09 WBC (3.5-10.8) 10^3/uL RBC (4.18-5.48) 10^6 /uL Hgb (14.0-18.0) g/dL Hct (42-52) % MCV (80-94) fL MCH (27-31) pg MCHC (31-36) g/dL RDW (10-15) % Plt Count (150-450) 10^3/uL MPV (7.4-10.4) fL Neut % (Auto) % Lymph % (Auto) % [place] % (Auto) % Eos % (Auto) % Baso % (Auto) % Absolute Neuts (auto) (1.5-7.7) 10^3/ul Absolute Lymphs (auto) (1.0-4.8) 10^3/ul Absolute Monos (auto) (0-0.8) 10^3/ul Absolute Eos (auto) (0-0.6) 10^3/ul Absolute Basos (auto) (0-0.2) 10^3/ul Absolute Nucleated RBC 10^3/ul Nucleated RBC % Sodium (135-145) mmol/L Potassium (3.5-5.0) mmol/L Chloride (101-111) mmol/L Carbon Dioxide (22-32) mmol/L Anion Gap (2-11) mmol/L BUN (6-24) mg/dL Creatinine (0.67-1.17) mg/dL Est GFR ( Amer) (>60) Est GFR (Non-Af Amer) (>60) BUN/Creatinine Ratio (8-20) Glucose (70-100) mg/dL Lactic Acid (0.5-2.0) mmol/L Calcium (8.6-10.3) mg/dL Total Bilirubin (0.2-1.0) mg/dL AST (13-39) U/L ALT (7-52) U/L Alkaline Phosphatase (34-104) U/L Troponin I (<0.04) ng/mL C-Reactive Protein (<8.01) mg/L Total Protein (6.4-8.9) g/dL Albumin (3.2-5.2) g/dL Globulin (2-4) g/dL Albumin/Globulin Ratio (1-3) TSH (0.34-5.60) mcIU/mL Urine Color Yellow Urine Appearance Cloudy Urine pH 6.0 (5-9) Ur Specific [place] 1.020 (1.010-1.030) Urine Protein Negative (Negative) Urine Ketones 1+ A (Negative) Urine Blood Negative (Negative) Urine Nitrate Negative (Negative) Urine Bilirubin Negative (Negative) Urine Urobilinogen Negative (Negative) Ur Leukocyte Esterase Negative (Negative) Urine Glucose Negative (Negative) Urine Ascorbic Acid * A (Negative) Valproic Acid (50-100) mcg/mL Result Diagrams: 08/31/18 18:18 08/31/18 18:11 Lab Statement: Any lab studies that have been ordered have been reviewed, and results considered in the medical decision making process. Course/Dx - Course Course Of Treatment: Patient brought by EMS for episode of seizure. History of same. Patient states he blacked out while walking today. Patient has swollen nose and abrasion to bilateral knees. Denies any other injury pain or symptoms prior to seizure. Compliant with medications. States history of seizure once a week over the past couple months. Denies Cough, sore throat, CP, SOB, N/V/D, abdominal pain, change in urine, change in BM, vision change, headache. Vital signs within normal limits. Labs unremarkable. Valproic acid level normal. EKG sinus rhythm. Advised patient follow up with ENT for further evaluation of swollen nose, and patient neurologist Dr. Perdomo for further evaluation of recurrent seizures. - Diagnoses Provider Diagnoses: Seizure, Blunt trauma of nose Discharge - Sign-Out/Discharge Documenting (check all that apply): Patient Departure Patient Received Moderate/Deep Sedation with Procedure: No - Discharge Plan Condition: Stable Disposition: HOME Patient Education Materials: Recurrent Seizures in Adults (ED) Referrals: Mike Dickinson RAND BUTTING MACHINE OPERATOR [Primary Care Provider] - Marino Perdomo MD [Medical Doctor] - Giovanny Sahu MD [Medical Doctor] - Additional Instructions: Follow up with ENT Dr. Sahu in one week for further evaluation of your swollen nose. Follow-up with your neurologist Dr. Perdomo for recurrent seizures. Return to the ED for any new or worsening symptoms. - Billing Disposition and Condition Condition: STABLE Disposition: Home
[2018-08-31 22:20] VITALS: BP 99/73
== END 2018-08-31 22:21 | disposition home or self-care (01) ==
LOC: ED 17:43
DX: R56.9 Unspecified convulsions (principal); S09.92XA Unspecified injury of nose, initial encounter; F17.210 Nicotine dependence, cigarettes, uncomplicated; W19.XXXA Unspecified fall, initial encounter
CPT/HCPCS: 36415; 80053; 80164; 81003; 83605; 84443; 84484; 85025; 86140; 93005; 99283

== ENCOUNTER 2019-03-28 17:54 | Inpatient (IN) | payer MEDICARE ==
--- OUTSIDE RECORDS SUMMARY | 2019-03-28 18:21 | XMS REPORT | Continuity of Care Document ---
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 Alannah Ortega MD Onset: 12/16/2014 complex partial seizures Insomnia Alannah Ortega MD Onset: 11/06/2015 Taking medication Alannah Ortega MD Onset: 06/13/2016 Knee pain Alannah Ortega MD Onset: 08/14/2017 Social History Type Date Description Comments Sex Unknown ETOH Use Denies alcohol use Tobacco Use Start: Unknown Light tobacco smoker (10 or fewer cigarettes/day) Smoking Status Reviewed: 03/28/19 Light tobacco smoker (10 or fewer cigarettes/day) Exercise Type/Frequency Exercises sporadically Allergies, Adverse Reactions, Alerts Description No Known Drug Allergies Medications Active Medications SIG Qnty Indications Ordering Date Provider Azithromycin 2 by mouth day 1 6tabs R05 Zoya Stevenson, 03/28/2019 250mg 1 by mouth daily M.D., FACP Tablets until gone Flovent HFA 1-2 puffs twice 10.600gm R05 Zoyakaren Stevenson, 03/28/2019 44mcg/Act daily for 2-3 M.D., FACP Aerosol weeks Benzonatate 1-2 by mouth 30caps R05 Zoyakaren Stevenson, 03/28/2019 100mg every 8 hours as M.D., FACP Capsules needed Onfi Take 1/2 Tablet 45tabs G40.219 Marino S. 08/03/2018 10mg Tablets By Mouth In The Kaleb Perdomo Morning And 1 Tablet By Mouth AT Bedtime Maximum Daily Dose = 1 And 1/2 Vimpat 1 by mouth in 30tabs G40.219 Marino S. 11/06/2015 100mg Tablets the morning with Kaleb Perdomo your 200 MG, tablet mdd 1 (ok to fill early, ran out of 200 MG tabs, was using the 100 MG tabs to fill in) Vimpat 1 tab by mouth 60tabs G40.219 Marino S. 05/25/2015 200mg Tablets twice a day Code Kaleb Perdomo C Multi Vitamin Mens 1 po qd Unknown Tablets Depakote 3 tab by mouth 90tabs G40.219 Marino S. 500mg Tablets at at bedtime Kaleb Perdomo DR Description No Information Available Vital Signs Date Vital Result Comment 03/28/2019 3:14pm Height 67.75 inches 5'7.75" Weight 195.00 lb Heart Rate 69 /min BP Systolic Sitting 114 mmHg BP Diastolic Sitting 72 mmHg Body Temperature 97.7 F O2 % BldC Oximetry 88 % BMI (Body Mass Index) 29.9 kg/m2 01/25/2019 11:23am Height 67.75 inches 5'7.75" Weight 195.00 lb Heart Rate 70 /min BP Systolic 131 mmHg BP Diastolic 81 mmHg Body Temperature 97.4 F O2 % BldC Oximetry 95 % BMI (Body Mass Index) 29.9 kg/m2 Results Test Acquired Date Facility Test Result H/L Range Note Order 03/28/2019 Nebulizer <pending> [address] [place] [address] [phone] Lipid Profile 01/29/2019 Triglycerides 161 mg/dL 1, 2 (Trig/Chol/HD [address] L) [place] [address] [phone] Cholesterol 219 mg/dL 3 HDL Cholesterol 47.3 mg/dL 4 LDL Cholesterol 140 mg/dL 5 Laboratory test 01/29/2019 Glucose 99 mg/dL Normal 70-100 [address] [place] [address] [phone] Laboratory test 01/17/2019 Valproic Acid 78.0 Normal 50-[address] (Depakene) g/[place] [address] [phone] Lacosamide 5.2 g/mL 1.0 - 10.0 7 CBC Auto 01/17/2019 White Blood 9.1 10^3/uL Normal 3.5-10.[address] [address] [phone] Red Blood Count 5.07 10^6/uL Normal 4.18-5.48 Hemoglobin 16.8 g/dL Normal 14.0-18.0 Hematocrit 48 % Normal 42-52 Mean Corpuscular Volume 95 fL High 80-94 Mean Corpuscular Hemoglobin 33 pg High 27-31 Mean Corpuscular HGB Conc 35 g/dL Normal 31-36 Red Cell Distribution Width 14 % Normal 10-15 Platelet Count 282 10^3/uL Normal 150-450 Mean Platelet Volume 9.1 fL Normal 7.4-10.4 Abs Neutrophils 5.6 10^3/uL Normal 1.5-7.7 Abs Lymphocytes 2.7 10^3/uL Normal 1.0-4.8 Abs Monocytes 0.5 10^3/uL Normal 0-0.8 Abs Eosinophils 0.2 10^3/uL Normal 0-0.6 Abs Basophils 0.1 10^3/uL Normal 0-0.2 Abs Nucleated RBC 0.0 10^3/uL Granulocyte % 61.9 % Lymphocyte % 30.0 % Monocyte % 5.3 % Eosinophil % 1.7 % Basophil % 1.1 % Nucleated Red Blood Cells % 0.1 Comp Metabolic 01/17/2019 Sodium 136 mmol/L Normal 135-[address] [place] [address] [phone] Potassium 4.7 mmol/L Normal 3.5-5.0 Chloride 98 mmol/L Low 101-111 Co2 Carbon Dioxide 32 mmol/L Normal 22-32 Anion Gap 6 mmol/L Normal 2-11 Glucose 70 mg/dL Normal 70-100 Blood Urea Nitrogen 10 mg/dL Normal 6-24 Creatinine 0.78 mg/dL Normal 0.67-1.17 BUN/Creatinine Ratio 12.8 Normal 8-20 Calcium 10.1 mg/dL Normal 8.6-10.3 Total Protein 7.9 g/dL Normal 6.4-8.9 Albumin 4.7 g/dL Normal 3.2-5.2 Globulin 3.2 g/dL Normal 2-4 Albumin/Globulin Ratio 1.5 Normal 1-3 Total Bilirubin 0.60 mg/dL Normal 0.2-1.0 Alkaline Phosphatase 67 U/L Normal 34-104 Alt 14 U/L Normal 7-52 Ast 17 U/L Normal 13-39 Egfr Non- 104.1 >60 Egfr 126.0 >60 8 Clobazam Frisium 01/17/2019 Clobazam 169.0 ng/mL 30-[address] [place] [phone] N-desmethylclobazam 463.0 ng/mL 300-3000 9 1 FASTING 10 HOUR 2 Desirable: <150 Borderline High: 150-199 High: 200-499 Very High: >500 3 Desirable: <200 Borderline High: 200-239 High: >239 4 Low: <40 Desirable: 40-60 High: >60 5 Desirable: <100 Near Optimal: 100-129 Borderline High: 130-159 High: 160-189 Very High: >189 6 FASTING 10 HOUR 7 ADDITIONAL INFORMATION This test was developed and its performance characteristics determined by [facility] in a manner consistent with CLIA requirements. This test has not been cleared or approved by the U.S. Food and Drug Administration. Test Performed by: [facility] [address] [place] [address] Web Worker: Ayo Dennis M.D. Ph.D.; CLIA# [id number] 8 Because ethnic data is not always readily [...] 15-29 5 Kidney failure <15 (or dialysis) 9 ADDITIONAL INFORMATION This test was developed and its performance characteristics determined by [facility] in a manner consistent with CLIA requirements. This test has not been cleared or approved by the U.S. Food and Drug Administration. Test Performed by: [facility] [address] [place] [id number] Web Worker: Ayo Dennis M.D. 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 Assessments Date Code Description Provider 03/28/2019 R05 Cough [facility] 03[facility]28/2019 Z72.0 Tobacco use Zoya Stevenson M.D., FACP 01/25/2019 Z00.00 Encounter for general adult medical Mike Dickinson NP examination without abnormal findings 01/25/2019 G40.219 Localization-related (focal) (partial) Mike Dickinson NP symptomatic epilepsy 01/25/2019 Z13.220 Encounter for screening for lipoid Mike Dickinson NP disorders 01/25/2019 Z13.1 Encounter for screening for diabetes Mike Dickinson NP mellitus 01/25/2019 Z72.0 Tobacco use Mike Dickinson NP 12/04/2018 G40.219 Localization-related (focal) (partial) Earl Albarado NP symptomatic epilepsy 12/04/2018 Z79.899 Other half-way (current) drug therapy Earl Albarado NP Plan of Treatment Future Appointment(s):01/28/2020 11:00 am - Mike Dickinson NP at [facility] - [facility]06/04/2019 9:45 am - Marino Perdomo M.D. at [facility]03/28/2019 - Zoya Stevenson M.D., FACPR05 CoughNew Medication:Azithromycin 250 mg - 2 by mouth day 1 1 by mouth daily until goneFlovent HFA 44 mcg/Act - 1-2 puffs twice daily for 2-3 weeksBenzonatate 100 mg - 1-2 by mouth every 8 hours as neededNew Xrays:Chest PA & Lat 2 VWS, Ordered: 03/28/19Comments:COUGH:Today you had a nebulizer treatment. I would like to obtain an chest Xray today.I have sent rx for an inhaled steroid, an antibiotic and a cough supressant to your pharmacy.You may use Mucinex and nasal saline as needed. Keep well hydrated. Call back if you are not improving over the next week. If you feel as though your cough or shortness of breath is worsening, you may need to go the Emergency Department.Z72.0 Tobacco useComments:TOBACCO USE:I understand that you are not smoking since this respiratory illness.Do not restart!For further help or information you can call the [facility] Smokers Quit Line at 9-900-GO-QUITS ([phone]),or www.[employer] Functional Status Description No Information Available Mental Status Description No Information Available Referrals Description No Information Available
--- NOTE | 2019-03-28 19:11 | ED ---
Shortness of Breath - HPI Summary HPI Summary: The patient is a 53 y/o male presenting to [facility] accompanied by father with a chief complaint of respiratory symptoms for the last week. He reports that he has been experiencing a productive cough, shortness of breath, generalized weakness, body tremors, and lightheadedness over the last week, so he went to his PCPs today, where they did a CRX that showed PNA. He then went to urgent care and they suggested he come here. He was not placed on antibiotics yet, but he did have a nebulizer treatment at urgent care. He is medication compliant. PMHx: frontal lobe seizures. Former smoker, rare EtOH, no substance use. Medications reviewed. Allergies noted. - History of Current Complaint Chief Complaint: EDShortnessOfBreath Time Seen by Provider: 03/28/19 18:49 Hx Obtained From: Patient Onset/Duration: Lasting Days, Still Present Current Severity: Moderate Dyspnea At: Rest Aggravating Factors: Nothing Alleviating Factors: Nothing Associated Signs & Symptoms: Cough (Productive) - Allergy/Home Medications Allergies/Adverse Reactions: Allergies Allergy/AdvReac Type Severity Reaction Status Date / Time No Known Allergies Allergy Verified 02/15/17 13:59 Home Medications: Home Medications Clobazam TAB (NF) [Onfi TAB(NF)] 5 mg PO QAM MDD 15 mg 03/28/19 [History Confirmed 03/28/19] Clobazam TAB (NF) [Onfi TAB(NF)] 10 mg PO BEDTIME MDD 15 mg 03/28/19 [History Confirmed 03/28/19] Lacosamide TAB* [Vimpat TAB*] 100 mg PO QAM 03/28/19 [History Confirmed 03/28/19 ] Multivit-Min/Folic/Vit K/Lycop [Men's 50 Plus Multivitamin Tab] 1 tab PO DAILY WITH MEAL 03/28/19 [History Confirmed 03/28/19] PMH/Surg Hx/FS Hx/Imm Hx Endocrine/Hematology History: Denies: Hx Diabetes Cardiovascular History: Denies: Hx Pacemaker/ICD GI History: Reports: Hx Gastroesophageal Reflux Disease History: Denies: Hx Dialysis Sensory History: Denies: Hx Contacts or Glasses, Hx Hearing Aid Opthamlomology History: Denies: Hx Contacts or Glasses Neurological History: Reports: Hx Seizures - ON MEDICATIONS Psychiatric History: Denies: Hx Autism, Hx of Violent Episodes Against Others - Surgical History Surgical History: Yes Surgery Procedure, Year, and Place: SKIN GRAFTING IN [place] -yr ago r/t [facility] Hx Anesthesia Reactions: No - Immunization History Date of Tetanus Vaccine: unsure Date of Influenza Vaccine: unsure Infectious Disease History: No Infectious Disease History: Denies: History Other Infectious Disease, Traveled Outside the [place] in Last 30 Days - Family History Known Family History: Positive: Hypertension - Social History Alcohol Use: Rare Hx Substance Use: No Substance Use Type: Reports: None Substance Use Comment - Amount & Last Used: daily usage Hx Tobacco Use: Yes Smoking Status (MU): Former Smoker Amount Used/How Often: 1 pack/ day Have You Smoked in the Last Year: Yes Review of Systems Positive: Shortness Of Breath, Cough - productive, Other - chest congestion Neurological: Other - body tremors, lightheadedness Positive: Weakness - generalized All Other Systems Reviewed And Are Negative: Yes Physical Exam - Summary Physical Exam Summary: Appearance: The patient is well-nourished in no acute distress and in no acute pain. Skin: The skin is warm and dry, and skin color reflects adequate perfusion. HEENT: The head is normocephalic and atraumatic. The pupils are equal and reactive. The conjunctivae are clear and without drainage. Nares are patent and without drainage. Mouth reveals moist mucous membranes, and the throat is without erythema and exudate. The external ears are intact. The ear canals are patent and without drainage. The tympanic membranes are intact. Neck: The neck is supple with full range of motion and non-tender. There are no carotid bruits. There is no neck vein distension. Respiratory: Chest is non-tender. There are rhonchi and crackles worse on the right than the left. Cardiovascular: Heart is regular rate and rhythm. There is no murmur or rub auscultated. There is no peripheral edema and pulses are symmetrical and equal. Abdomen: The abdomen is soft and non-tender. There are normal bowel sounds heard in all four quadrants and there is no organomegaly palpated. Musculoskeletal: There is no back tenderness noted. Extremities are non-tender with full range of motion. There is good capillary refill. There is no peripheral edema or calf tenderness elicited. Neurological: Patient is alert and oriented to person, place and time. The patient has symmetrical motor strength in all four extremities. Cranial nerves are grossly intact. Deep tendon reflexes are symmetrical and equal in all four extremities. Psychiatric: The patient has an appropriate affect and does not exhibit any anxiety or depression. Triage Information Reviewed: Yes Vital Signs On Initial Exam: Initial Vitals Temp Pulse Resp BP Pulse Ox 98.5 F 74 18 112/69 90 03/28/19 17:56 03/28/19 17:56 03/28/19 17:56 03/28/19 17:56 03/28/19 17:56 Vital Signs Reviewed: Yes Procedures - Sedation Patient Received Moderate/Deep Sedation with Procedure: No Diagnostics - Vital Signs Vital Signs Temp Pulse Resp BP Pulse Ox 03/28/19 17:56 98.5 F 74 18 112/69 90 - Laboratory Result Diagrams: 03/28/19 19:54 03/28/19 19:54 Lab Statement: Any lab studies that have been ordered have been reviewed, and results considered in the medical decision making process. Course/Dx - Course Course Of Treatment: Mr. Hale was found to have marginal respiratory status and pneumonia. He was given IV fluids as well as Rocephin and Zithromax IV here. I spoke with the hospitalist Dr. Vallejo about admission. - Diagnoses Provider Diagnoses: Pneumonia, Respiratory insufficiency - Physician Notifications Discussed Care of Patient With: Bonnie Vallejo - hospitalist Time Discussed With Above Provider: 20:20 Instructed by Provider To: Other - I discussed the patients case with Dr. Vallejo, who accepts the patient for admission. Discharge ED - Sign-Out/Discharge Documenting (check all that apply): Patient Departure - Patient accepted for admission. - Discharge Plan Condition: Stable Disposition: ADMITTED TO [facility] Referrals: Mike Dickinson, M[employer] MIXER HELPER [Primary Care Provider] - - Billing Disposition and Condition Condition: STABLE Disposition: Admitted to [facility] - Attestation Statements Document Initiated by Scribe: Yes Documenting Scribe: Wen Andrews Provider For Whom Chemo is Documenting (Include Credential): Dr. Ervin Win MD Scribe Attestation: Wen Sorensen, scribed for Dr. Ervin Win MD on 03/28/19 at 2148. Scribe Documentation Reviewed: Yes Provider Attestation: The documentation as recorded by the Wen gutierrez accurately reflects the service I personally performed and the decisions made by me, Dr. Ervin Win MD Status of Scribe Document: Viewed
[2019-03-28] MEDS ORDERED: cefTRIAXone(*) 1 GM in NS 0.9% 50 ML* 50 ML IVPB ONE (19:43)
[2019-03-28] MEDS ORDERED: NS 0.9% 1000 ML** 1,000 ML IV ONE (19:43)
[2019-03-28] MEDS ORDERED: Azithromycin 500 mg/250 ml NS 500 MG/250 ML BAG IVPB ONE (19:43)
[2019-03-28 20:03] LABS: ABS Basophils 0.1 10^3/ul (0-0.2); ABS Eosinophils 0.1 10^3/ul (0-0.6); ABS Lymphocytes 1.6 10^3/ul (1.0-4.8); ABS Monocytes 1.4 10^3/ul (0-0.8); ABS Neutrophils 8.1 10^3/ul (1.5-7.7); Eosinophil % 1.2 %; Hematocrit 34 % (42-52); Hemoglobin 11.9 g/dL (14.0-18.0); Lymphocyte % 13.8 %; Mean Corpuscular HGB Conc 35 g/dL (31-36); Mean Corpuscular Hemoglobin 33 pg (27-31); Mean Corpuscular Volume 94 fL (80-94); Mean Platelet Volume 8.2 fL (7.4-10.4); Nucleated Red Blood Cells % 0.1; Platelet Count 422 10^3/uL (150-450); Red Blood Count 3.64 10^6 /uL (4.18-5.48); Red Cell Distribution Width 14 % (10-15); White Blood Count 11.3 10^3/uL (3.5-10.8)
[2019-03-28 20:16] LABS: Albumin/Globulin Ratio 0.9 (1-3); BUN/Creatinine Ratio 13.6 (8-20); C Reactive Protein 75.22 mg/L (<8.01); Calcium 8.7 mg/dL (8.6-10.3); EGFR African American 173.9 (>60); EGFR Non-African American 143.7 (>60); Globulin 3.4 g/dL (2-4); Total Bilirubin 0.3 mg/dL (0.2-1.0); Total Protein 6.4 g/dL (6.4-8.9)
[2019-03-28] MEDS ORDERED: Acetaminophen TAB* 325 MG PO PRN (20:30)
[2019-03-28] MEDS ORDERED: Al Hydrox/Mg Hydrox/Simet LIQ* 30 ML UDC PO PRN (20:30)
[2019-03-28] MEDS ORDERED: Albuterol/Ipratropium NEB.SOL* Albuterol 2.5 MG/Ipratropium 0.5 MG 3 ML INH PRN (20:40)
--- NOTE | 2019-03-28 21:31 | HP ---
CC: Mike Dickinson NP; Dr. Perdomo * HISTORY AND PHYSICAL: DATE OF ADMISSION: 03/28/19 TIME OF ADMISSION: 8:30 p.m. PRIMARY CARE PROVIDER: Mike Dickinson NP NEUROLOGIST: Dr. Perdomo. CHIEF COMPLAINT: Cough. HISTORY OF PRESENT ILLNESS: This is a 53-year-old man with history of seizures , who presents with a cough for about a week. He is a poor historian, but believes the symptoms have been ongoing for a week; however, thinks they could have been longer than that. He complains of a productive cough, feeling weak, shaky, and forgetful. He notes an increase in seizure activity. He thinks the symptoms started about a week ago when he had a seizure in his home alone. He did not seek medical attention and did not reach out to his neurologist. He has been taking his seizure medications as prescribed. He went to see Dr. Barbara vanegas, who ordered an outpatient chest x-ray, which showed pneumonia and he was sent to the emergency department. He is accompanied by his father, who is his healthcare proxy. PAST MEDICAL HISTORY: Seizure disorder. ALLERGIES: None. FAMILY HISTORY: Heart disease. SOCIAL HISTORY: His healthcare proxy is his dad, Juan Carlos. Juan Carlos's phone number is . He lives alone. He smokes cigarettes, but quit a week ago when he started feeling ill. He smoked about a pack a day prior to that. He drinks no alcohol or other drugs. REVIEW OF SYSTEMS: He complains of a poor appetite, weight loss over the past 2 weeks, shortness of breath, and diarrhea. He denies chest pain, orthopnea, nausea, or vomiting. PHYSICAL EXAMINATION GENERAL: Alert, well-appearing man, in no distress. VITAL SIGNS: Temperature 98.6; heart rate 66; respiratory rate 20; pulse ox 96 % on 2 L, he was 89% on room air; blood pressure 112/70. HEENT: His left pupil is about a millimeter larger than his right. They are both reactive to light. He has no nystagmus. He has a small laceration over the left maxilla. Oral mucosa is moist with some pharyngeal erythema. NECK: No JVP or adenopathy. LUNGS: Have diffuse expiratory wheezes with scattered rhonchi. He is breathing comfortably and using no accessory respiratory muscles and is able to speak in full sentences. CHEST: He is in a regular rate and rhythm. ABDOMEN: Obese, soft, nontender, nondistended. No guarding or rebound. Liver and spleen are not palpable. EXTREMITIES: No edema. He does have some chronic appearing skin changes on both shins. DIAGNOSTIC STUDIES/LAB DATA: White blood cells 11.3, hemoglobin 11.9, platelets 422. Sodium 133, potassium 4.0, chloride 94, bicarb 34, BUN 8, creatinine 0.59, glucose 117. CRP 75. BNP 136. Imaging: An EKG is pending. A chest x-ray shows bronchopneumonia likely superimposed on chronic obstructive pulmonary disease. ASSESSMENT AND PLAN: This is a 53-year-old man with seizure disorder, who presented to the emergency department today from his primary care physician's office where he was found to have pneumonia on an outpatient chest x-ray. 1. Community-acquired pneumonia. He has received azithromycin and ceftriaxone in the emergency department. His only sepsis criteria is leukocytosis. I am checking a urine legionella and strep antigen, a sputum culture and I am adding anaerobic coverage since this is associated with seizure disorder and it seems to correlate with increase in seizure activity time neal. I am also checking a flu swab, which has not yet been checked in the emergency department. 2. Uncontrolled seizure disorder. He has had an increase in seizures over the last week and this seems to have contributed to his presenting complaint. I am continuing his home antiepileptics and consulting Neurology for the morning. 3. Tobacco use. He has not smoked for about a week and declines tobacco replacement. 4. DVT prophylaxis: Lovenox subcu. 5. Full code. [id number]/[facility] #: [id number] [facility]
[2019-03-28 21:34] LABS: Influenza A Molecular NEGATIVE (Negative); Influenza B Molecular NEGATIVE (Negative)
[2019-03-28] MEDS: NS 0.9% 1000 ML** 1,000 ML IV SCH (23:25)
[2019-03-28] MEDS: metroNIDAZOLE IV 500 MG/100ML* 500 MG/100 ML BAG IVPB SCH (23:25)
[2019-03-28] MEDS: Enoxaparin(*) 40 MG/0.4 ML SYR SUBCUT SCH (23:26)
[2019-03-28] MEDS: methylPREDNISolone SOD 40 MG* 1 ML VIAL IV SCH (23:26)
[2019-03-28] MEDS: Clobazam TAB (NF) 10 MG TAB PO SCH (23:27)
[2019-03-28] MEDS: Lacosamide TAB* 100 MG TAB PO SCH (23:28)
[2019-03-28] MEDS: Divalproex DR TAB(*) 500 MG PO SCH (23:28)
[2019-03-29] MEDS: metroNIDAZOLE IV 500 MG/100ML* 500 MG/100 ML BAG IVPB SCH ×2 (05:29→14:07)
[2019-03-29] MEDS: methylPREDNISolone SOD 40 MG* 1 ML VIAL IV SCH ×3 (05:29→21:40)
[2019-03-29 06:42] LABS: ABS Basophils 0.1 10^3/ul (0-0.2); ABS Lymphocytes 0.9 10^3/ul (1.0-4.8); ABS Monocytes 0.4 10^3/ul (0-0.8); ABS Neutrophils 12.6 10^3/ul (1.5-7.7); Eosinophil % 0.1 %; Hematocrit 34 % (42-52); Hemoglobin 11.6 g/dL (14.0-18.0); Lymphocyte % 6.1 %; Mean Corpuscular HGB Conc 34 g/dL (31-36); Mean Corpuscular Hemoglobin 33 pg (27-31); Mean Corpuscular Volume 95 fL (80-94); Mean Platelet Volume 8.8 fL (7.4-10.4); Platelet Count 410 10^3/uL (150-450); Red Blood Count 3.56 10^6 /uL (4.18-5.48); Red Cell Distribution Width 14 % (10-15); White Blood Count 13.9 10^3/uL (3.5-10.8)
[2019-03-29 07:13] LABS: BUN/Creatinine Ratio 12.7 (8-20); Calcium 8.2 mg/dL (8.6-10.3); EGFR African American 188.5 (>60); EGFR Non-African American 155.8 (>60); Potassium 4.9 mmol/L (3.5-5.0)
[2019-03-29] MEDS: Multivitamins/Minerals TAB PO SCH (09:40)
[2019-03-29] MEDS: Clobazam TAB (NF) 10 MG TAB PO SCH ×2 (09:41→21:39)
[2019-03-29] MEDS: Lacosamide TAB* 100 MG TAB PO SCH ×3 (09:41→21:40)
--- NOTE | 2019-03-29 11:23 | CONS ---
CC: Mike Dickinson NP; Dr. Perdomo * CONSULTATION REPORT: DATE OF CONSULT: 03/29/19 PRIMARY CARE PROVIDER: Mike Dickinson NP TREATING NEUROLOGIST: Dr. Perdomo. REASON FOR CONSULTATION: Cough and seizures. HISTORY OF PRESENT ILLNESS: Mr. Hale is a very nice 53-year-old gentleman who has a history of intractable localization-related epilepsy, no other significant medical history reported by the patient, who follows with Dr. Perdomo in clinic. He is currently on multiple medications, was previously followed by Dr. Ortega. He is on Depakote 1500 mg at bedtime, Vimpat 300 mg in the morning and 200 mg at night and Onfi 5 mg in the morning and 10 mg at night. He has persistent seizures, they are intermittent in nature. Some months he will have 1, other months he will have none. Per my review of his last office note dated 12/04/18, he had only reported 1 seizure since his last visit from 05/29/18. He reports being very compliant with his medication. He reports over the last few months that he has had a few more seizures and specifically in the last 10 days he reports 3 seizures to me, although he reported 5 seizures in the ER. He notes that the seizures are associated with loss of consciousness, some tongue biting at times, no bladder incontinence. More concerning recently is that over the last week or so he has developed a cough and some shortness of breath. He noted that the cough is productive, which he had complained of in the past as well per review of his old records. He denies to me any fevers. He does note that he resumed smoking. He notes some productive cough and that he has been feeling weak and shaky at times. He is also noted in the last 10 days the increase in seizure activity, which is somewhat more for him than usual. He lives by himself. He has some contact with his brother and father. His father brought him to the hospital not for seizures, but for the suspected pneumonia, which was developing. He saw Dr. Jimenez yesterday, had an outpatient chest x-ray, which showed the pneumonia and he was sent to the emergency department where he was admitted. He had no reported seizure yesterday in the ER. From a seizure standpoint today, he states that he has been fairly consistent, although in the last few days, he seems to have had a few more seizures. Currently, he is in his room, pleasant, awake, alert, and oriented, able to answer all questions, seems to have a good command of the recent and remote events. He states that his last seizure was several days ago and was typical for him. PAST MEDICAL HISTORY: Includes seizure disorder. MEDICATIONS: Home medications list includes the seizure medicines as noted above: 1. Onfi 5 mg in the morning and 10 mg at bedtime. 2. Lacosamide 300 mg in the morning and 200 mg at night. 3. Valproic acid 1500 mg by mouth at bedtime. ALLERGIES: No known drug allergies. FAMILY HISTORY: Coronary artery disease. No history of seizures per the patient. SOCIAL HISTORY: He lives by himself, but has contact with his father and brother. He does smoke tobacco, states that he stopped about a week ago, but smokes about a pack a day. He denies any alcohol or drug use. He states that he is very compliant with his medications. REVIEW OF SYSTEMS: Review of systems in 14-organ systems, he was also complaining of some poor appetite, shortness of breath, and some diarrhea. PHYSICAL EXAMINATION: Vital Signs: Temperature 97.4, pulse rate is 73, respiratory rate of 18, O2 of sat 94%, blood pressure 111/64, 133/65. In general, he is a well-nourished, well-developed gentleman, in no acute distress. He is lying in his hospital bed. He is very pleasant, answers all questions appropriately. He is normocephalic, atraumatic. He has a small well- healing scar on his left cheek, otherwise he is normocephalic and atraumatic. Sclerae are anicteric. Mucous membranes are moist. Oropharynx is clear. He has poor dentition. He has what looks like a cut on his left lip where he states that he bit his lip. Neck is supple. No thyromegaly. No carotid bruits. Chest: Clear to auscultation bilaterally. Cardiovascular: Regular rate and rhythm. Abdomen is nontender, nondistended, obese. Extremities: No clubbing, cyanosis, or edema. His skin warm and dry. Neurologic Exam: He is awake, alert. He is oriented to person, place, and time. His speech is fluent. There is no dysarthria. Repetition is intact. Recall is generally intact. Mood is dysthymic. Affect, mood congruent. Cranial Nerves: Pupils are equally round and reactive to light and accommodation. Extraocular muscles are intact. There is no nystagmus, no ptosis noted. No diplopia. Facial sensation is intact to light touch. Face is symmetric. His hearing is intact bilaterally. Palate raises symmetrically. Tongue is midline. Motor Exam: He has normal strength in his arms and legs 5/5 throughout. Good tone and bulk. There is no focality. Coordination, finger-to- nose and rapid alternating movements are intact. There is no resting tremor or intention tremor. DTRs are 2+ and symmetric in the biceps, brachioradialis, triceps, patella, 1+ at the ankles, equivocal Babinski's. Sensation in the upper and lower extremities is intact to light touch and pinprick. He has been ambulating without difficulty. His last levels were from December of 2018, valproic acid is 78.2, lacosamide of 5.2, and Onfi of 169 with metabolite of 463. All of these were well within normal range. Interestingly, reviewing his prior records from 05/29/18 and 03/24, his last level from May, the Depakote level of 91 and lacosamide level of 11.4 with no change in his dosage, which raises the possibility that he may not be as compliant. He had no imaging done during this hospitalization. LABORATORY DATA: His lab work included a white count of 13.9, hemoglobin of 11.6, hematocrit of 34, platelet count of 410, absolute neutrophils of 12.6. Sodium of 134, chloride of 99, creatinine of 0.55, glucose of 156, calcium of 8.2. Valproic acid from this morning of 100. His Onfi level and Vimpat level are both pending and are sent off. ASSESSMENT AND PLAN: Mr. Hale is a 53-year-old gentleman with a known history of localization-related epilepsy, medically refractory, who presents to the hospital with pneumonia. He is currently being treated with azithromycin and ceftriaxone as well as some Solu-Medrol, Flagyl has been added as well. He has been short of breath with a productive cough. Denies any fevers, any neck pain or headaches. He has a long history of seizures that have been generally under control, although he continues to have breakthrough seizures despite multiple medications. Most recently, he notes a flurry of seizures in the last 10 days. He reports to me that he has had 3 seizures. He reported to the ER that he had 5 seizures in the last week or so and he notes compliance. I have sent off levels, his Depakote level is high level therapeutic at 100. At this point, my suspicion is that he has had some breakthrough seizures related to an underlying infection, I am hesitant to make any changes to his medications prior to checking his levels. Unfortunately, it will take several days for the Onfi and Vimpat levels to return. For now, I suggested we continue him on his current dose. If necessary, we could increase his Onfi slightly to 10 mg in the morning and 10 mg at night. He denies any recent somnolence related to this medication, but for now I would continue him on current dose. I will speak with Dr. Perdomo about this case and we will plan to have a quick followup after his hospitalization. At that point, his level should be back and we can make adjustments then. Should he have another seizure, please let me know and we will make changes now. I would continue seizure precautions. I did reinforce to him the importance of taking his medication, which he states he has been very compliant. I will sign off for now, but remain available during his hospitalization should he have any further seizure activity. Thank you for the opportunity to participate in his care. [id number]/[facility] #: [id number] RAZA
--- NOTE | 2019-03-29 15:37 | PN ---
Subjective Date of Service: 03/29/19 Interval History: HOSPITALIST PROGRESS NOTE Patient seen and examined at bedside. Care reviewed and d/w Akhil Duque RN. He feels better today. Still has dyspnea and cough, but less intense than before. Family History: Unchanged from Admission Social History: Unchanged from Admission Past Medical History: Unchanged from Admission Objective Active Medications: Acetaminophen (Tylenol Tab*) 650 mg PO Q4H PRN PRN Reason: PAIN - MILD Al Hydrox/Mg Hydrox/Simethicone (Maalox Plus*) 30 ml PO Q6H PRN PRN Reason: INDIGESTION Albuterol/Ipratropium (Duoneb (Albuterol 2.5 Mg/Ipratropium 0.5 Mg)) 1 neb INH Q4H PRN PRN Reason: SOB/WHEEZING Clobazam (Onfi Tab(Nf)) 5 mg PO QAM [facility] Last Admin: 03/29/19 09:41 Dose: 5 mg Clobazam (Onfi Tab(Nf)) 10 mg PO BEDTIME [facility] Last Admin: 03/28/19 23:27 Dose: 10 mg Divalproex Sodium (Depakote Dr Tab(*)) 1,500 mg PO BEDTIME [facility] Last Admin: 03/28/19 23:28 Dose: 1,500 mg Enoxaparin Sodium (Lovenox(*)) 40 mg SUBCUT Q24H [facility] Last Admin: 03/28/19 23:26 Dose: 40 mg Sodium Chloride (Ns 0.9% 1000 Ml) 1,000 mls @ 100 mls/hr IV PER RATE [facility] Last Admin: 03/28/19 23:25 Dose: 100 mls/hr Metronidazole/Sodium Chloride (Flagyl 500 Mg Ivpb*) 500 mg in 100 mls @ 100 mls /hr IVPB Q8HR [facility] Last Admin: 03/29/19 14:07 Dose: 100 mls/hr Ceftriaxone Sodium 1 gm/ (Sodium Chloride) 50 mls @ 100 mls/hr IVPB Q24H [facility] Lacosamide (Vimpat Tab*) 100 mg PO QAM [facility] Last Admin: 03/29/19 09:41 Dose: 100 mg Lacosamide (Vimpat Tab*) 200 mg PO BID [facility] Last Admin: 03/29/19 09:41 Dose: 200 mg Methylprednisolone Sodium Succinate (Solu-Medrol 40 Mg) 40 mg IV Q8H [facility] Last Admin: 03/29/19 14:12 Dose: 40 mg Multivitamins/Minerals (Theragran/Minerals Tab*) 1 tab PO DAILY WITH MEAL [facility] Last Admin: 03/29/19 09:40 Dose: 1 tab Vital Signs - 8 hr 03/29/19 03/29/19 03/29/19 08:13 09:41 12:25 Temperature 97.2 F 97.3 F Pulse Rate 68 71 Respiratory 20 20 21 Rate Blood Pressure 103/52 110/68 (mmHg) O2 Sat by Pulse 92 93 Oximetry Oxygen Devices in Use Now: Nasal Cannula Appearance: Pleasant middle aged gentleman lying in bed in NAD Eyes: No Scleral Icterus Ears/Nose/Mouth/Throat: Mucous Membranes Moist Neck: Trachea Midline Respiratory: Symmetrical Chest Expansion and Respiratory Effort - BS+, - - BS+ bilaterally with scattered wheezing Cardiovascular: RRR - Normal S1 and S2 Abdominal: NL Sounds; No Tenderness; No Distention Neurological: Alert and Oriented x 3, NL Muscle Strength and Tone Result Diagrams: 03/29/19 06:10 03/29/19 06:10 Microbiology and Other Data: Microbiology 03/28/19 20:57 Nasal Screen MRSA (PCR) - Final Nasal Mrsa Not Detected Assess/Plan/Problems-Billing Assessment: Mr Hale is a 53yo M with PMH of epilepsy, tobacco abuse, who presented to ED with c/o cough and dyspnea, as well as increased seizure frequency, found to have pneumonia and reactive airway disease. - Patient Problems (1) Pneumonia Comment: - Suspect community acquired pneumonia. Patient has had a "cold" since New Years Evon. - CxR showed superimposed bronchopneumonia on COPD background. - Continue Ceftriaxone and add doxycycline. There was concern for aspiration on admission due to recurrent seizures, but I believe this is likely CAP lowering seizure threshold - will d/c Metronidazole. (2) COPD exacerbation Comment: - Although not formal diagnosis of COPD has been made, patient has h/o tobacco abuse and xray findings suggestive of COPD. - Continue steroids and bronchodilators. (3) Epilepsy Comment: - Uncontrolled in the setting of pneumonia. - Neurology consult requested - continue current dose of Clobazam, Divalproex, Lacosamide. Follow levels. - Seizure precautions. (4) Tobacco abuse Comment: - Patient declines nicotine supplementation. (5) DVT prophylaxis Comment: - Lovenox. (6) Full code status Status and Disposition: Inpatient.
[2019-03-29] MEDS ORDERED: DOXYcycline IV* 100 MG in NS 0.9% 250 ML* 250 ML IVPB SCH (16:00)
[2019-03-29] MEDS: cefTRIAXone(*) 1 GM in NS 0.9% 50 ML* 50 ML IVPB SCH (16:28)
[2019-03-29] MEDS: DOXYcycline IV* 100 MG in NS 0.9% 250 ML* 250 ML IVPB SCH (18:36)
[2019-03-29] MEDS: NS 0.9% 1000 ML** 1,000 ML IV SCH (21:38)
[2019-03-29] MEDS: Divalproex DR TAB(*) 500 MG PO SCH (21:38)
[2019-03-29] MEDS: Enoxaparin(*) 40 MG/0.4 ML SYR SUBCUT SCH (21:40)
[2019-03-30] MEDS: DOXYcycline IV* 100 MG in NS 0.9% 250 ML* 250 ML IVPB SCH ×2 (06:00→18:33)
[2019-03-30] MEDS: methylPREDNISolone SOD 40 MG* 1 ML VIAL IV SCH ×2 (06:00→13:19)
[2019-03-30 06:12] LABS: ABS Basophils 0.1 10^3/ul (0-0.2); ABS Lymphocytes 1.1 10^3/ul (1.0-4.8); ABS Monocytes 0.8 10^3/ul (0-0.8); ABS Neutrophils 19.2 10^3/ul (1.5-7.7); Hematocrit 34 % (42-52); Hemoglobin 11.5 g/dL (14.0-18.0); Lymphocyte % 5.2 %; Mean Corpuscular HGB Conc 34 g/dL (31-36); Mean Corpuscular Hemoglobin 33 pg (27-31); Mean Corpuscular Volume 95 fL (80-94); Mean Platelet Volume 8.5 fL (7.4-10.4); Platelet Count 429 10^3/uL (150-450); Red Blood Count 3.54 10^6 /uL (4.18-5.48); Red Cell Distribution Width 14 % (10-15); White Blood Count 21.2 10^3/uL (3.5-10.8)
[2019-03-30 06:30] LABS: BUN/Creatinine Ratio 22.4 (8-20); Calcium 8.3 mg/dL (8.6-10.3); EGFR African American 215.4 (>60); Potassium 4.7 mmol/L (3.5-5.0)
[2019-03-30] MEDS: Lacosamide TAB* 100 MG TAB PO SCH ×2 (09:11→09:12)
[2019-03-30] MEDS: NS 0.9% 1000 ML** 1,000 ML IV SCH (09:11)
[2019-03-30] MEDS: Multivitamins/Minerals TAB PO SCH (09:12)
[2019-03-30] MEDS: Clobazam TAB (NF) 10 MG TAB PO SCH (09:12)
[2019-03-30] MEDS ORDERED: Albuterol/Ipratropium NEB.SOL* Albuterol 2.5 MG/Ipratropium 0.5 MG 3 ML INH SCH ×2 (13:00)
[2019-03-30] MEDS: cefTRIAXone(*) 1 GM in NS 0.9% 50 ML* 50 ML IVPB SCH (15:17)
--- NOTE | 2019-03-30 17:01 | PN ---
Subjective Date of Service: 03/30/19 Interval History: HOSPITALIST PROGRESS NOTE Patient seen and examined at bedside. Care reviewed and d/w Akhil Duque RN. He feels a little better today, but still has dyspnea and cough. No further seizures. Family History: Unchanged from Admission Social History: Unchanged from Admission Past Medical History: Unchanged from Admission Objective Active Medications: Acetaminophen (Tylenol Tab*) 650 mg PO Q4H PRN PRN Reason: PAIN - MILD Al Hydrox/Mg Hydrox/Simethicone (Maalox Plus*) 30 ml PO Q6H PRN PRN Reason: INDIGESTION Albuterol/Ipratropium (Duoneb (Albuterol 2.5 Mg/Ipratropium 0.5 Mg)) 1 neb INH Q4H PRN PRN Reason: SOB/WHEEZING Last Admin: 03/30/19 12:19 Dose: 1 neb Albuterol/Ipratropium (Duoneb (Albuterol 2.5 Mg/Ipratropium 0.5 Mg)) 1 neb INH [id number] AWAKE [facility] Clobazam (Onfi Tab(Nf)) 5 mg PO QAM [facility] Last Admin: 03/30/19 09:12 Dose: 5 mg Clobazam (Onfi Tab(Nf)) 10 mg PO BEDTIME [facility] Last Admin: 03/29/19 21:39 Dose: 10 mg Divalproex Sodium (Depakote Dr Tab(*)) 1,500 mg PO BEDTIME [facility] Last Admin: 03/29/19 21:38 Dose: 1,500 mg Enoxaparin Sodium (Lovenox(*)) 40 mg SUBCUT Q24H [facility] Last Admin: 03/29/19 21:40 Dose: 40 mg Sodium Chloride (Ns 0.9% 1000 Ml) 1,000 mls @ 100 mls/hr IV PER RATE [facility] Last Admin: 03/30/19 09:11 Dose: 100 mls/hr Ceftriaxone Sodium 1 gm/ (Sodium Chloride) 50 mls @ 100 mls/hr IVPB Q24H [facility] Last Admin: 03/30/19 15:17 Dose: 100 mls/hr Doxycycline Hyclate 100 mg/ (Sodium Chloride) 250 mls @ 250 mls/hr IVPB 0600, 1800 [facility] Last Admin: 03/30/19 06:00 Dose: 250 mls/hr Lacosamide (Vimpat Tab*) 100 mg PO QAM [facility] Last Admin: 03/30/19 09:12 Dose: 100 mg Lacosamide (Vimpat Tab*) 200 mg PO BID [facility] Last Admin: 03/30/19 09:11 Dose: 200 mg Methylprednisolone Sodium Succinate (Solu-Medrol 40 Mg) 40 mg IV Q8H [facility] Last Admin: 03/30/19 13:19 Dose: 40 mg Multivitamins/Minerals (Theragran/Minerals Tab*) 1 tab PO DAILY WITH MEAL [facility] Last Admin: 03/30/19 09:12 Dose: 1 tab Vital Signs - 8 hr 03/30/19 09:12 Respiratory 18 Rate Oxygen Devices in Use Now: Nasal Cannula Appearance: Middle aged gentleman sitting up in NAD Eyes: No Scleral Icterus Ears/Nose/Mouth/Throat: Mucous Membranes Moist Neck: Trachea Midline Respiratory: Symmetrical Chest Expansion and Respiratory Effort, - - BS+ bilaterally with wheezes Cardiovascular: RRR - Normal S1 and S2 Neurological: Alert and Oriented x 3, NL Muscle Strength and Tone Result Diagrams: 03/30/19 06:05 03/30/19 06:05 Assess/Plan/Problems-Billing Assessment: Mr Hale is a 53yo M with PMH of epilepsy, tobacco abuse, who presented to ED with c/o cough and dyspnea, as well as increased seizure frequency, found to have pneumonia and reactive airway disease. - Patient Problems (1) Pneumonia Comment: - Community acquired pneumonia. Patient has had a "cold" since New Years Ev[place]. - CxR showed superimposed bronchopneumonia on COPD background. - Continue Ceftriaxone and doxycycline. There was concern for aspiration on admission due to recurrent seizures, but I believe this is likely CAP lowering seizure threshold - will d/c Metronidazole. (2) COPD exacerbation Comment: - Although not formal diagnosis of COPD has been made, patient has h/o tobacco abuse and xray findings suggestive of COPD. - Continue steroids and bronchodilators. (3) Epilepsy Comment: - Uncontrolled in the setting of pneumonia. - Neurology consult requested - continue current dose of Clobazam, Divalproex, Lacosamide. Follow levels. - Seizure precautions. (4) Tobacco abuse Comment: - Patient declines nicotine supplementation. (5) DVT prophylaxis Comment: - Lovenox. (6) Full code status Status and Disposition: Inpatient.
[2019-03-30 17:49] VITALS: BP 105/59
[2019-03-30 20:10] LABS: Lacosamide 10.7 mcg/mL (1.0 - 10.0)
--- NOTE | 2019-03-31 00:02 | DS ---
CC: Mike Dickinson NP; Dr. Perdomo DISCHARGE SUMMARY: DATE OF ADMISSION: 03/28/19 DATE OF DISCHARGE: Against medical advice, 03/30/19. PRIMARY CARE PROVIDER: Mike Dickinson NP DISCHARGE DIAGNOSES: 1. Community-acquired pneumonia. 2. Probable chronic obstructive pulmonary disease with exacerbation. 3. Uncontrolled epilepsy in the setting of infection. 4. Acute hypoxemic respiratory failure. SECONDARY DIAGNOSIS: Intractable localization-related epilepsy. MEDICATION LIST: 1. Clobazam 5 mg p.o. q.a.m. and 10 mg p.o. at bedtime. 2. Multivitamin 1 tablet p.o. daily with a meal. 3. Lacosamide 100 mg p.o. in the morning and 200 mg p.o. b.i.d. 4. Depakote DR 1500 mg p.o. at bedtime. New medications: 1. Prednisone taper as follows: 40 mg p.o. daily for 3 days, 30 mg for 3 days, 20 mg for 3 days, 10 mg for 3 days, 5 mg for 3 days, and stop. 2. Doxycycline 100 mg p.o. b.i.d. for 5 days. 3. Naproxen 500 mg p.o. b.i.d. for 5 days. 3. Albuterol/ipratropium 2 puffs inhaled q.4 hours p.r.n. shortness of breath and wheezing. HOSPITAL COURSE: Mr. Hale is a 53-year-old male with a past medical history as stated above that presented to the emergency room with complaints of shortness of breath and cough. For more details about his presentation, I refer you to his history and physical. The patient's workup revealed bronchopneumonia on a chest x-ray, superimposed on COPD. He was admitt ed for further management. The patient's sputum culture so far has shown no growth. Influenza was negative. He was being treate d with ceftriaxone, doxycycline, steroids, and bronchodilators and was having progressive symptomatic improvement, but he still has a white cell count of 21,000, still has dyspnea with speaking and exer tion and it was thought that he would benefit of further treatment in the hospital. The patient requested to be discharged home as he feels he would be more comfortable in his own bed. We had a long conversation regarding his diagnosis and the fact that although he feels symptomatic i mprovement, his pneumonia is not yet completely treated, his white cell count is even worse than on a dmission and that it is my professional opinion that he should stay in the hospital for further treat ment. I explained I am concerned that if he leaves the hospital too early, he may have worsening of his symptoms, risk of respiratory failure requiring intubation or in the worst case even from his pneumonia. The patient had verbalized understanding of the recommendations but insists that he want s to be discharged. He is able to tell me that he will have his cell phone and if he feels that he i s getting worse he would call 911 and return to this hospital or go back to [facility] that he states is closer to his home and easier for his family to visit. I do not agree with his decision, but I think he does have a capacity to make a decision to leave the hospital against medical advice. I did ask permission to call his father to talk to him about the patient leaving the hospital and th e patient did not want me to call him. He did try to call his dad on his own cell phone, but he stat es that no one picked up and his dad has very poor cell phone signal where he lives. During our conversation, the patient was comfortable, but he did have some dyspnea while he was dress ing himself up and even when pointed with the evidence, he still felt that he was breathing better th an when he came in and that he will be comfortable at home. The patient was having recurrent seizures at home and this was felt to be secondary to the infection lowering his seizure threshold. The valproic acid level was therapeutic at 100 and he was seen in [facility] by Neurology (Dr. Gonzalez) who agreed that his increased seizures are likely secondary to inf ection. His recommendation was to follow up his clobazam and lacosamide levels as outpatient with ort-term neurology followup to decide if those medications should be changed. The patient will be discharged against medical advice and prescriptions were sent to [facility] in [place], so he can continue his treatment as outpatient. The patient is a smoker and I initially thought that one of the reasons why he wanted to leave the [facility] was the urge to smoke. I did offer nicotine supplementation and the patient declined it. He states that he will no longer smoke and this is not the reason he was leaving the hospital. Although not formally diagnosed with COPD, his x-ray does show stigmata of COPD and I believe he would benefi t of PFTs as outpatient after this episode has resolved and even evaluation by Pulmonary. PHYSICAL EXAMINATION: Vital Signs: Temperature 98.2, heart rate is 67, respiratory rate is 16, oxyg en saturation 90% on room air, blood pressure is 105/59. General: The patient is a middle-aged gent mikki, sitting up in bed, in no acute distress. CVS: Normal S1, S2. Regular rate and rhythm. Ches t: Breath sounds bilaterally with scattered wheezing. Neuro: He is alert and oriented x3. Able to move all 4 extremities. DIET: Regular diet. ACTIVITY: As tolerated. DISPOSITION: To home against medical advice. STATUS WHILE IN THE HOSPITAL: Inpatient. CONDITION AT THE TIME OF DISCHARGE: Guarded. Please keep in mind this is a summarized version of this patient's hospital stay. If you need more in formation, please feel free to call me at [phone] or please obtain the full medical records. TIME SPENT: Approximately 45 minutes was spent to complete this discharge. [id number]/CPS #: [id number]
== END 2019-03-30 18:45 | disposition left against medical advice (07) | DRG 193 ==
LOC: ED 17:54 → MED 20:30
PROVIDERS: ADMIT Internal Medicine; ATTEND Internal Medicine
DX: J18.0 Bronchopneumonia, unspecified organism (principal); J96.01 Acute respiratory failure with hypoxia; J44.1 Chronic obstructive pulmonary disease with (acute) exacerbation; J44.0 Chronic obstructive pulmonary disease with (acute) lower respiratory infection; G40.804 Other epilepsy, intractable, without status epilepticus; K21.9 Gastro-esophageal reflux disease without esophagitis; Z53.29 Procedure and treatment not carried out because of patient's decision for other reasons; F17.210 Nicotine dependence, cigarettes, uncomplicated; Z28.21 Immunization not carried out because of patient refusal; Z79.899 Other long term (current) drug therapy
CPT/HCPCS: 36415; 80048; 80053; 80164; 80299; 80346; 83880; 85025; 86140; 87070; 87205; 87641; 94640; 99284; A9270-GY; G0480; J0456; J0696; J1650; J2920

== ENCOUNTER 2019-07-30 10:24 | Observation (INO) ==
[2019-07-30] MEDS ORDERED: NS 0.9% 1000 ml BAG 1,000 ML IV SCH (10:45)
[2019-07-30 10:56] LABS: ABS Eosinophils 0.2 10^3/ul (0-0.6); ABS Lymphocytes 3.1 10^3/ul (1.0-4.8); ABS Monocytes 0.7 10^3/ul (0-0.8); Eosinophil % 2.1 %; Hematocrit 44 % (42-52); Hemoglobin 15.4 g/dL (14.0-18.0); Lymphocyte % 35.2 %; Mean Corpuscular HGB Conc 35 g/dL (31-36); Mean Corpuscular Hemoglobin 33 pg (27-31); Mean Corpuscular Volume 94 fL (80-94); Mean Platelet Volume 7.9 fL (7.4-10.4); Nucleated Red Blood Cells % 0.2; Platelet Count 285 10^3/uL (150-450); Red Blood Count 4.74 10^6 /uL (4.18-5.48); Red Cell Distribution Width 14 % (10-15); White Blood Count 8.7 10^3/uL (3.5-10.8)
[2019-07-30 10:57] LABS: INR 0.97 (0.82-1.09)
[2019-07-30 11:06] LABS: ALT 27 U/L (7-52); Albumin 3.9 g/dL (3.2-5.2); Albumin/Globulin Ratio 1.1 (1-3); Alkaline Phosphatase 93 U/L (34-104); BUN/Creatinine Ratio 17.8 (8-20); Blood Urea Nitrogen 13 mg/dL (6-24); CO2 Carbon Dioxide 31 mmol/L (22-32); Calcium 9.6 mg/dL (8.6-10.3); Chloride 97 mmol/L (101-111); Creatine Kinase 100 U/L (10-223); EGFR Non-African American 112.4 (>60); Globulin 3.5 g/dL (2-4); Glucose 89 mg/dL (70-100); Sodium 133 mmol/L (135-145); Total Protein 7.4 g/dL (6.4-8.9)
[2019-07-30 11:17] LABS: Anion Gap 5 mmol/L (2-11)
[2019-07-30 11:23] LABS: Alcohol, S < 10 mg/dL (<10)
[2019-07-30 11:53] LABS: Magnesium 1.8 mg/dL (1.9-2.7)
[2019-07-30] MEDS ORDERED: NS 0.9% 1000 ml BAG 1,000 ML IV ONE (13:16)
[2019-07-30 13:44] LABS: Urine Appearance Cloudy; Urine Bilirubin Negative (Negative); Urine Blood Negative (Negative); Urine Color Yellow; Urine Glucose Negative (Negative); Urine Ketones Trace (Negative); Urine Nitrite Negative (Negative); Urine Protein Negative (Negative); Urine Specific Gravity 1.011 (1.010-1.030); Urine Urobilinogen Negative (Negative)
[2019-07-30 14:10] LABS: Phosphorus 3.7 mg/dL (2.5-5.0)
[2019-07-30] MEDS ORDERED: Morphine 4 MG/ML VIAL (1 ml) IV ONE (14:16)
[2019-07-30 14:33] LABS: Urine Benzodiazepine Screen Presumptive Positive (None Detect); Urine Opiates Screen None Detected (None Detect)
[2019-07-30 15:26] LABS: Potassium Redraw 4.3 mmol/L (3.5-5.0)
[2019-07-30] MEDS ORDERED: Senna TAB 8.6 mg TAB PO PRN (15:28)
[2019-07-30] MEDS ORDERED: Ondansetron 4 mg VIAL 2 MG/ML 2 ml VIAL IV PRN (15:28)
[2019-07-30] MEDS ORDERED: Albuterol 2.5mg/3 ml (0.083%) NEB.SOLN INH PRN (16:03)
[2019-07-30] MEDS ORDERED: oxyCODONE/Acetamin 5/325 mg TAB PO PRN (16:05)
[2019-07-30] MEDS ORDERED: Nicotine GUM 4MG FRUIT FLAVOR PO PRN (16:06)
[2019-07-30 16:17] LABS: Free T4 0.81 ng/dL (0.61-1.12)
[2019-07-30] MEDS ORDERED: Enoxaparin 40 MG/0.4 ML SYR SUBCUT SCH (17:00)
[2019-07-30] MEDS ORDERED: Albuterol/Ipratropium NEB.SOL (2.5/0.5 MG) 3 ML NEB.SOLN INH SCH (19:00)
[2019-07-30] MEDS: Clobazam 10 mg TAB (NF) 10 MG TAB PO SCH (22:02)
[2019-07-31 06:48] LABS: ABS Lymphocytes 1.6 10^3/ul (1.0-4.8); ABS Monocytes 0.5 10^3/ul (0-0.8); Hematocrit 42 % (42-52); Hemoglobin 14.5 g/dL (14.0-18.0); Lymphocyte % 17.3 %; Mean Corpuscular HGB Conc 35 g/dL (31-36); Mean Corpuscular Hemoglobin 33 pg (27-31); Mean Corpuscular Volume 95 fL (80-94); Mean Platelet Volume 8.3 fL (7.4-10.4); Platelet Count 262 10^3/uL (150-450); Red Blood Count 4.46 10^6 /uL (4.18-5.48); Red Cell Distribution Width 14 % (10-15); White Blood Count 9.5 10^3/uL (3.5-10.8)
[2019-07-31 07:05] LABS: BUN/Creatinine Ratio 16.2 (8-20); Calcium 9.2 mg/dL (8.6-10.3); EGFR African American 147.6 (>60); Potassium 4.4 mmol/L (3.5-5.0)
[2019-07-31] MEDS: Clobazam 10 mg TAB (NF) 10 MG TAB PO SCH (08:22)
[2019-07-31] MEDS ORDERED: Vitamin THERAPEUTIC TAB PO SCH (09:00)
[2019-07-31] MEDS ORDERED: SPIRIVA Respimat (tiotropium) 2.5 mcg/inh Inhaler INH SCH (09:00)
[2019-07-31 19:34] VITALS: BP 116/65
[2019-07-31 23:22] LABS: Clozapine <25 ng/mL (350-600); Clozapine & Norclozapine Level Unable to calculate ng/mL; Norclozapine <25 ng/mL
[2019-08-01 11:49] LABS: Lacosamide 10.1 mcg/mL (1.0 - 10.0)
== END 2019-07-31 18:40 | disposition home or self-care (01) ==
LOC: ED 10:24 → MEDTELE 10:24
PROVIDERS: ADMIT Internal Medicine; ATTEND Hospitalist

== ENCOUNTER 2020-02-17 23:23 | Inpatient (IN) ==
[2020-02-18 01:34] LABS: ABS Basophils 0.1 10^3/ul (0-0.2); ABS Eosinophils 0.2 10^3/ul (0-0.6); ABS Lymphocytes 3.3 10^3/ul (1.0-4.8); ABS Monocytes 0.7 10^3/ul (0-0.8); ABS Neutrophils 3.6 10^3/ul (1.5-7.7); Eosinophil % 2.7 %; Hematocrit 43 % (42-52); Lymphocyte % 41.9 %; Mean Corpuscular HGB Conc 35 g/dL (31-36); Mean Corpuscular Hemoglobin 33 pg (27-31); Mean Corpuscular Volume 94 fL (80-94); Mean Platelet Volume 8.5 fL (7.4-10.4); Platelet Count 246 10^3/uL (150-450); Red Blood Count 4.61 10^6 /uL (4.18-5.48); Red Cell Distribution Width 14 % (10-15); White Blood Count 7.9 10^3/uL (3.5-10.8)
[2020-02-18 01:47] LABS: Urine Appearance Turbid; Urine Bilirubin Negative (Negative); Urine Blood Negative (Negative); Urine Color Yellow; Urine Glucose Negative (Negative); Urine Ketones Trace (Negative); Urine Nitrite Negative (Negative); Urine Protein Negative (Negative); Urine Specific Gravity 1.016 (1.010-1.030); Urine Urobilinogen Negative (Negative)
[2020-02-18 01:48] LABS: ALT 16 U/L (7-52); Acetaminophen < 15 mcg/mL; Albumin 3.9 g/dL (3.2-5.2); Albumin/Globulin Ratio 1.1 (1-3); Alcohol, S < 10 mg/dL (<10); Alkaline Phosphatase 75 U/L (34-104); BUN/Creatinine Ratio 14.1 (8-20); Blood Urea Nitrogen 10 mg/dL (6-24); CO2 Carbon Dioxide 31 mmol/L (22-32); Calcium 9.8 mg/dL (8.6-10.3); Chloride 100 mmol/L (101-111); EGFR African American 139.9 (>60); EGFR Non-African American 115.6 (>60); Globulin 3.6 g/dL (2-4); Glucose 98 mg/dL (70-100); Salicylate < 2.50 mg/dL (<30); Sodium 135 mmol/L (135-145); Total Protein 7.5 g/dL (6.4-8.9)
[2020-02-18 01:57] LABS: Urine Benzodiazepine Screen Presumptive Positive (None Detect); Urine Cannabinoids Screen Presumptive Positive (None Detect); Urine Opiates Screen None Detected (None Detect)
[2020-02-18 02:04] LABS: TSH Ultra Thyroid Stim Horm 8.24 mcIU/mL (0.34-5.60)
[2020-02-18 03:04] LABS: AST 26 U/L (13-39); Anion Gap 4 mmol/L (2-11); Potassium 4.4 mmol/L (3.5-5.0)
[2020-02-18] MEDS ORDERED: Al Hydrox/Mg Hydrox/Simet LIQ 30 ML UDC PO PRN (10:38)
[2020-02-18] MEDS ORDERED: Albuterol HFA INHALER 8 gm MDI INH PRN (10:51)
[2020-02-18] MEDS ORDERED: Clobazam 10 mg TAB (NF) 10 MG TAB PO SCH (13:00)
[2020-02-18] MEDS: Vitamin THERAPEUTIC TAB PO SCH (17:52)
[2020-02-18] MEDS ORDERED: Nicotine Lozenge mini 4 MG LOZNG.MINI MT PRN (18:57)
[2020-02-18] MEDS: CMCS: Clobazam 10 mg TAB (NF) 10 MG TAB PO SCH (21:17)
[2020-02-19 08:29] LABS: HDL Cholesterol 53.2 mg/dL
[2020-02-19] MEDS: CMCS: Clobazam 10 mg TAB (NF) 10 MG TAB PO SCH ×2 (09:44→20:59)
[2020-02-19] MEDS: Vitamin THERAPEUTIC TAB PO SCH (09:44)
[2020-02-19 12:59] LABS: Free T4 0.84 ng/dL (0.61-1.12)
[2020-02-20] MEDS: Vitamin THERAPEUTIC TAB PO SCH (09:04)
[2020-02-20] MEDS: CMCS: Clobazam 10 mg TAB (NF) 10 MG TAB PO SCH ×2 (09:05→20:42)
[2020-02-20] MEDS: Fluticasone NASAL SPRAY 50MCG 16 gm SPRAY BTL BOTH NARES SCH (17:58)
[2020-02-21 08:24] VITALS: BP 133/85
[2020-02-21] MEDS: Vitamin THERAPEUTIC TAB PO SCH (08:50)
[2020-02-21] MEDS: CMCS: Clobazam 10 mg TAB (NF) 10 MG TAB PO SCH (08:50)
[2020-02-21] MEDS: Fluticasone NASAL SPRAY 50MCG 16 gm SPRAY BTL BOTH NARES SCH (08:51)
== END 2020-02-21 13:17 | disposition home or self-care (01) | DRG 885 ==
LOC: ED 23:23 → BSU 02-18 10:39
PROVIDERS: ADMIT Psychiatry & Neurology Psychiatry; ATTEND Psychiatry & Neurology Psychiatry

== ENCOUNTER 2020-05-28 15:45 | Inpatient (IN) ==
[2020-05-28 18:13] LABS: ABS Eosinophils 0.2 10^3/ul (0-0.6); ABS Lymphocytes 1.5 10^3/ul (1.0-4.8); ABS Monocytes 0.6 10^3/ul (0-0.8); ABS Neutrophils 5.6 10^3/ul (1.5-7.7); Eosinophil % 2.3 %; Hematocrit 39 % (42-52); Lymphocyte % 19.2 %; Mean Corpuscular HGB Conc 36 g/dL (31-36); Mean Corpuscular Hemoglobin 34 pg (27-31); Mean Corpuscular Volume 95 fL (80-94); Mean Platelet Volume 7.8 fL (7.4-10.4); Platelet Count 408 10^3/uL (150-450); Red Blood Count 4.15 10^6 /uL (4.18-5.48); Red Cell Distribution Width 14 % (10-15)
[2020-05-28 18:26] LABS: Urine Benzodiazepine Screen Presumptive Positive (None Detect); Urine Cannabinoids Screen Presumptive Positive (None Detect); Urine Opiates Screen None Detected (None Detect)
[2020-05-28 18:28] LABS: ALT 16 U/L (7-52); AST 17 U/L (13-39); Albumin/Globulin Ratio 1.1 (1-3); Alkaline Phosphatase 76 U/L (34-104); Anion Gap 5 mmol/L (2-11); BUN/Creatinine Ratio 9.2 (8-20); Blood Urea Nitrogen 7 mg/dL (6-24); CO2 Carbon Dioxide 32 mmol/L (22-32); Calcium 9.7 mg/dL (8.6-10.3); Chloride 97 mmol/L (101-111); EGFR African American 129.3 (>60); EGFR Non-African American 106.9 (>60); Globulin 3.8 g/dL (2-4); Glucose 151 mg/dL (70-100); Sodium 134 mmol/L (135-145); Total Protein 7.8 g/dL (6.4-8.9)
[2020-05-28 18:48] LABS: Alcohol, S < 10 mg/dL (<10); Salicylate < 2.50 mg/dL (<30)
[2020-05-28 19:02] LABS: TSH Ultra Thyroid Stim Horm 1.79 mcIU/mL (0.34-5.60)
[2020-05-28] MEDS ORDERED: Albuterol 2.5mg/3 ml (0.083%) NEB.SOLN INH PRN (19:50)
[2020-05-28 19:56] LABS: Acetaminophen < 10 mcg/mL
[2020-05-28] MEDS ORDERED: Enoxaparin 40 MG/0.4 ML SYR SUBCUT SCH (21:00)
[2020-05-28 21:31] LABS: Urine Appearance Cloudy; Urine Bilirubin Negative (Negative); Urine Blood Negative (Negative); Urine Color Amber; Urine Glucose Negative (Negative); Urine Ketones 1+ (Negative); Urine Nitrite Negative (Negative); Urine Protein Negative (Negative); Urine Specific Gravity 1.016 (1.010-1.030); Urine Urobilinogen Negative (Negative)
[2020-05-28] MEDS: CLOBAZAM 10 MG PO SCH (22:59)
[2020-05-29] MEDS: Vitamin THERAPEUTIC TAB PO SCH (09:44)
[2020-05-29] MEDS: CLOBAZAM 10 MG PO SCH ×2 (09:45→21:13)
[2020-05-29 14:26] LABS: Folate > 20.00 ng/mL (>3.99)
[2020-05-29 14:27] LABS: Vitamin B12 > 1450 pg/mL (180-914)
[2020-05-29] MEDS: Enoxaparin 40 MG/0.4 ML SYR SUBCUT SCH (15:39)
[2020-05-29] MEDS: Fluticasone NASAL SPRAY 50MCG 16 gm SPRAY BTL BOTH NARES SCH (17:44)
[2020-05-30 05:13] LABS: ABS Eosinophils 0.3 10^3/ul (0-0.6); ABS Lymphocytes 1.6 10^3/ul (1.0-4.8); ABS Monocytes 0.7 10^3/ul (0-0.8); ABS Neutrophils 3.9 10^3/ul (1.5-7.7); Eosinophil % 4.7 %; Hematocrit 35 % (42-52); Hemoglobin 12.4 g/dL (14.0-18.0); Lymphocyte % 24.2 %; Mean Corpuscular HGB Conc 35 g/dL (31-36); Mean Corpuscular Hemoglobin 34 pg (27-31); Mean Corpuscular Volume 97 fL (80-94); Mean Platelet Volume 7.8 fL (7.4-10.4); Platelet Count 404 10^3/uL (150-450); Red Blood Count 3.67 10^6 /uL (4.18-5.48); Red Cell Distribution Width 14 % (10-15); White Blood Count 6.5 10^3/uL (3.5-10.8)
[2020-05-30 05:27] LABS: BUN/Creatinine Ratio 22.2 (8-20); Calcium 8.8 mg/dL (8.6-10.3); EGFR African American 160.6 (>60); EGFR Non-African American 132.7 (>60); Potassium 4.4 mmol/L (3.5-5.0)
[2020-05-30] MEDS: Vitamin THERAPEUTIC TAB PO SCH (09:04)
[2020-05-30] MEDS: CLOBAZAM 10 MG PO SCH ×3 (09:04→22:57)
[2020-05-30] MEDS: Magnesium Hydroxide LIQ 30 ML UDC PO SCH ×2 (11:49→22:47)
[2020-05-30] MEDS: Enoxaparin 40 MG/0.4 ML SYR SUBCUT SCH (15:20)
[2020-05-30] MEDS: Fluticasone NASAL SPRAY 50MCG 16 gm SPRAY BTL BOTH NARES SCH (17:40)
[2020-05-31] MEDS: CLOBAZAM 10 MG PO SCH ×2 (08:31→20:37)
[2020-05-31] MEDS: Vitamin THERAPEUTIC TAB PO SCH (08:32)
[2020-05-31] MEDS: Magnesium Hydroxide LIQ 30 ML UDC PO SCH ×2 (08:32→20:38)
[2020-05-31] MEDS: Enoxaparin 40 MG/0.4 ML SYR SUBCUT SCH (15:31)
[2020-05-31] MEDS: Fluticasone NASAL SPRAY 50MCG 16 gm SPRAY BTL BOTH NARES SCH (17:07)
[2020-06-01 06:05] LABS: ABS Eosinophils 0.3 10^3/ul (0-0.6); ABS Lymphocytes 2.3 10^3/ul (1.0-4.8); ABS Monocytes 0.6 10^3/ul (0-0.8); ABS Neutrophils 3.3 10^3/ul (1.5-7.7); Eosinophil % 4.6 %; Hematocrit 38 % (42-52); Hemoglobin 12.9 g/dL (14.0-18.0); Lymphocyte % 35.2 %; Mean Corpuscular HGB Conc 34 g/dL (31-36); Mean Corpuscular Hemoglobin 33 pg (27-31); Mean Corpuscular Volume 97 fL (80-94); Mean Platelet Volume 7.6 fL (7.4-10.4); Nucleated Red Blood Cells % 0.1; Platelet Count 403 10^3/uL (150-450); Red Blood Count 3.92 10^6 /uL (4.18-5.48); Red Cell Distribution Width 14 % (10-15); White Blood Count 6.6 10^3/uL (3.5-10.8)
[2020-06-01 06:57] LABS: Magnesium 1.9 mg/dL (1.9-2.7)
[2020-06-01 07:03] LABS: BUN/Creatinine Ratio 14.8 (8-20); EGFR African American 166.7 (>60); EGFR Non-African American 137.7 (>60)
[2020-06-01] MEDS: Vitamin THERAPEUTIC TAB PO SCH (09:56)
[2020-06-01] MEDS: CLOBAZAM 10 MG PO SCH ×2 (09:56→20:34)
[2020-06-01] MEDS: Magnesium Hydroxide LIQ 30 ML UDC PO SCH ×2 (09:59→20:37)
[2020-06-01] MEDS: Enoxaparin 40 MG/0.4 ML SYR SUBCUT SCH (16:09)
[2020-06-01] MEDS: Fluticasone NASAL SPRAY 50MCG 16 gm SPRAY BTL BOTH NARES SCH (18:36)
[2020-06-02] MEDS: Vitamin THERAPEUTIC TAB PO SCH (08:57)
[2020-06-02] MEDS: CLOBAZAM 10 MG PO SCH ×2 (08:57→20:58)
[2020-06-02] MEDS: Magnesium Hydroxide LIQ 30 ML UDC PO SCH ×2 (08:57→21:07)
[2020-06-02] MEDS: Fluticasone NASAL SPRAY 50MCG 16 gm SPRAY BTL BOTH NARES SCH ×2 (14:37→17:37)
[2020-06-02] MEDS: Enoxaparin 40 MG/0.4 ML SYR SUBCUT SCH (14:37)
[2020-06-03] MEDS: Magnesium Hydroxide LIQ 30 ML UDC PO SCH (08:29)
[2020-06-03] MEDS: Vitamin THERAPEUTIC TAB PO SCH (08:31)
[2020-06-03] MEDS: CLOBAZAM 10 MG PO SCH (08:33)
[2020-06-03 11:25] VITALS: BP 99/63
== END 2020-06-03 14:35 | DRG 552 ==
LOC: ED 15:45 → SSU 15:45
PROVIDERS: ADMIT Internal Medicine; ATTEND Pediatrics

== ENCOUNTER 2021-11-03 08:44 | Observation (INO) ==
[2021-11-03] MEDS ORDERED: Magnesium Hydroxide LIQ 30 ML UDC PO PRN (11:47)
[2021-11-03] MEDS ORDERED: Albuterol HFA INHALER 8 gm MDI INH PRN (11:47)
[2021-11-03 11:57] LABS: ABS Basophils 0.1 10^3/ul (0-0.2); ABS Eosinophils 0.2 10^3/ul (0-0.6); ABS Lymphocytes 1.7 10^3/ul (1.0-4.8); ABS Monocytes 0.4 10^3/ul (0-0.8); ABS Neutrophils 4.6 10^3/ul (1.5-7.7); Eosinophil % 2.7 %; Hematocrit 43 % (42-52); Hemoglobin 14.6 g/dL (14.0-18.0); Lymphocyte % 24.1 %; Mean Corpuscular HGB Conc 34 g/dL (31-36); Mean Corpuscular Hemoglobin 31 pg (27-31); Mean Corpuscular Volume 92 fL (80-94); Mean Platelet Volume 7.8 fL (7.4-10.4); Nucleated Red Blood Cells % 0.1; Platelet Count 284 10^3/uL (150-450); Red Blood Count 4.66 10^6 /uL (4.18-5.48); Red Cell Distribution Width 14 % (10-15); White Blood Count 6.9 10^3/uL (3.5-10.8)
[2021-11-03 12:32] LABS: Calcium 9.5 mg/dL (8.6-10.3); Potassium 4.2 mmol/L (3.5-5.0)
[2021-11-03 12:37] LABS: eGFR CKD-EPI 105.5 (>60)
[2021-11-03 13:40] LABS: Osmolality Serum 285 mOsm/kg (275-295)
[2021-11-03 13:40] LABS: Urine Osmo 498 mOsm/kg (150-1150)
[2021-11-03] MEDS ORDERED: PAIN RELIEVING RUB (MENTHOL/SALICYLATE) 1 APPLIC TUBE TOPICAL PRN (14:17)
[2021-11-03] MEDS: Lactulose 30 ml UDC PO SCH ×2 (14:39→19:58)
[2021-11-03] MEDS: CMCS: CloBAZam 10 mg TAB (NF) PO SCH ×2 (14:40→19:59)
[2021-11-03] MEDS: Fluticasone NASAL SPRAY 50MCG 16 gm SPRAY BTL BOTH NARES SCH ×2 (14:40→14:44)
[2021-11-03] MEDS: Enoxaparin 40 MG/0.4 ML SYR SUBCUT SCH (14:41)
[2021-11-03] MEDS: Multivitamins/Minerals TAB PO SCH (14:42)
[2021-11-03] MEDS: Mometasone/Formoter 100/5 MDI INH SCH (19:57)
[2021-11-03] MEDS: Senna TAB 8.6 mg TAB PO SCH (19:59)
[2021-11-04 06:58] LABS: Potassium 4.1 mmol/L (3.5-5.0); eGFR CKD-EPI 109.1 (>60)
[2021-11-04] MEDS: Mometasone/Formoter 100/5 MDI INH SCH ×2 (09:34→20:21)
[2021-11-04] MEDS: Lactulose 30 ml UDC PO SCH ×2 (10:18→19:40)
[2021-11-04] MEDS: Enoxaparin 40 MG/0.4 ML SYR SUBCUT SCH (10:18)
[2021-11-04] MEDS: Fluticasone NASAL SPRAY 50MCG 16 gm SPRAY BTL BOTH NARES SCH (10:18)
[2021-11-04] MEDS: Multivitamins/Minerals TAB PO SCH (10:19)
[2021-11-04] MEDS: CMCS: CloBAZam 10 mg TAB (NF) PO SCH ×2 (10:19→19:41)
[2021-11-04] MEDS: Senna TAB 8.6 mg TAB PO SCH (19:41)
[2021-11-05 05:22] LABS: ABS Eosinophils 0.2 10^3/ul (0-0.6); ABS Lymphocytes 1.8 10^3/ul (1.0-4.8); ABS Monocytes 0.6 10^3/ul (0-0.8); ABS Neutrophils 4.9 10^3/ul (1.5-7.7); Eosinophil % 2.1 %; Hematocrit 42 % (42-52); Lymphocyte % 24.5 %; Mean Corpuscular HGB Conc 34 g/dL (31-36); Mean Corpuscular Hemoglobin 31 pg (27-31); Mean Corpuscular Volume 91 fL (80-94); Mean Platelet Volume 7.7 fL (7.4-10.4); Platelet Count 257 10^3/uL (150-450); Red Blood Count 4.55 10^6 /uL (4.18-5.48); Red Cell Distribution Width 14 % (10-15); White Blood Count 7.5 10^3/uL (3.5-10.8)
[2021-11-05 05:40] LABS: Calcium 8.9 mg/dL (8.6-10.3); Potassium 4.4 mmol/L (3.5-5.0); eGFR CKD-EPI 110.6 (>60)
[2021-11-05 05:54] LABS: TSH Ultra Thyroid Stim Horm 3.65 mcIU/mL (0.34-5.60)
[2021-11-05] MEDS: Lactulose 30 ml UDC PO SCH ×2 (07:41→19:46)
[2021-11-05] MEDS: Fluticasone NASAL SPRAY 50MCG 16 gm SPRAY BTL BOTH NARES SCH (07:41)
[2021-11-05] MEDS: Multivitamins/Minerals TAB PO SCH (07:43)
[2021-11-05] MEDS: CMCS: CloBAZam 10 mg TAB (NF) PO SCH ×2 (07:43→19:47)
[2021-11-05] MEDS: Mometasone/Formoter 100/5 MDI INH SCH ×2 (07:54→19:38)
[2021-11-05] MEDS: Enoxaparin 40 MG/0.4 ML SYR SUBCUT SCH (09:56)
[2021-11-05 19:16] VITALS: BP 119/67
[2021-11-05] MEDS: Senna TAB 8.6 mg TAB PO SCH (19:47)
[2021-11-06 20:39] LABS: Lacosamide 9.3 mcg/mL (1.0 - 10.0)
== END 2021-11-05 18:39 | disposition swing bed (61) ==
LOC: ED 08:44 → EDHOLD 08:44 → SUATTDRO 10:30 → MED 13:22
PROVIDERS: ADMIT Hospitalist; ATTEND Internal Medicine

== ENCOUNTER 2021-11-05 16:31 | Inpatient (IN) ==
[2021-11-06] MEDS ORDERED: Magnesium Hydroxide LIQ 30 ML UDC PO PRN (07:55)
[2021-11-06] MEDS ORDERED: Albuterol HFA INHALER 8 gm MDI INH PRN (07:55)
[2021-11-06] MEDS: Lactulose 30 ml UDC PO SCH ×2 (09:28→22:43)
[2021-11-06] MEDS: Enoxaparin 40 MG/0.4 ML SYR SUBCUT SCH (09:28)
[2021-11-06] MEDS: CloBAZam 10 mg TAB (NF) PO SCH ×2 (09:34→22:42)
[2021-11-06] MEDS: Multivitamins/Minerals TAB PO SCH (09:35)
[2021-11-06] MEDS: Fluticasone NASAL SPRAY 50MCG 16 gm SPRAY BTL BOTH NARES SCH (09:35)
[2021-11-06] MEDS: PAIN RELIEVING RUB (MENTHOL/SALICYLATE) 1 APPLIC TUBE TOPICAL PRN (09:36)
[2021-11-06] MEDS: Mometasone/Formoter 100/5 MDI INH SCH ×2 (15:32→20:29)
[2021-11-06] MEDS: Senna TAB 8.6 mg TAB PO SCH (22:42)
[2021-11-07] MEDS: Mometasone/Formoter 100/5 MDI INH SCH ×2 (07:27→20:42)
[2021-11-07] MEDS: CloBAZam 10 mg TAB (NF) PO SCH ×2 (08:33→20:27)
[2021-11-07] MEDS: Multivitamins/Minerals TAB PO SCH (08:33)
[2021-11-07] MEDS: Lactulose 30 ml UDC PO SCH ×2 (08:35→20:28)
[2021-11-07] MEDS: Fluticasone NASAL SPRAY 50MCG 16 gm SPRAY BTL BOTH NARES SCH (08:35)
[2021-11-07] MEDS: Enoxaparin 40 MG/0.4 ML SYR SUBCUT SCH (11:21)
[2021-11-07] MEDS: Senna TAB 8.6 mg TAB PO SCH (20:27)
[2021-11-08] MEDS: Mometasone/Formoter 100/5 MDI INH SCH ×2 (07:39→19:11)
[2021-11-08] MEDS: Lactulose 30 ml UDC PO SCH ×2 (08:56→19:40)
[2021-11-08] MEDS: CloBAZam 10 mg TAB (NF) PO SCH ×2 (08:57→19:43)
[2021-11-08] MEDS: Multivitamins/Minerals TAB PO SCH (08:58)
[2021-11-08] MEDS: Fluticasone NASAL SPRAY 50MCG 16 gm SPRAY BTL BOTH NARES SCH (08:58)
[2021-11-08] MEDS: Enoxaparin 40 MG/0.4 ML SYR SUBCUT SCH (11:23)
[2021-11-08] MEDS: Senna TAB 8.6 mg TAB PO SCH (19:42)
[2021-11-09] MEDS: Mometasone/Formoter 100/5 MDI INH SCH ×2 (07:36→19:36)
[2021-11-09] MEDS: Lactulose 30 ml UDC PO SCH ×2 (09:40→19:33)
[2021-11-09] MEDS: Multivitamins/Minerals TAB PO SCH (09:40)
[2021-11-09] MEDS: Fluticasone NASAL SPRAY 50MCG 16 gm SPRAY BTL BOTH NARES SCH (09:41)
[2021-11-09] MEDS: CloBAZam 10 mg TAB (NF) PO SCH ×2 (09:42→19:32)
[2021-11-09] MEDS: Enoxaparin 40 MG/0.4 ML SYR SUBCUT SCH (11:59)
[2021-11-09] MEDS: Senna TAB 8.6 mg TAB PO SCH (19:33)
[2021-11-10] MEDS: Mometasone/Formoter 100/5 MDI INH SCH ×2 (07:13→19:15)
[2021-11-10] MEDS: Lactulose 30 ml UDC PO SCH ×2 (08:50→21:20)
[2021-11-10] MEDS: CloBAZam 10 mg TAB (NF) PO SCH ×2 (08:50→21:08)
[2021-11-10] MEDS: Multivitamins/Minerals TAB PO SCH (08:50)
[2021-11-10] MEDS: Fluticasone NASAL SPRAY 50MCG 16 gm SPRAY BTL BOTH NARES SCH (08:51)
[2021-11-10] MEDS: Enoxaparin 40 MG/0.4 ML SYR SUBCUT SCH (11:36)
[2021-11-10] MEDS: Senna TAB 8.6 mg TAB PO SCH (21:19)
[2021-11-11] MEDS: Mometasone/Formoter 100/5 MDI INH SCH ×2 (08:27→19:11)
[2021-11-11] MEDS: Fluticasone NASAL SPRAY 50MCG 16 gm SPRAY BTL BOTH NARES SCH (08:46)
[2021-11-11] MEDS: Lactulose 30 ml UDC PO SCH ×2 (08:47→21:05)
[2021-11-11] MEDS: Multivitamins/Minerals TAB PO SCH (08:48)
[2021-11-11] MEDS: CloBAZam 10 mg TAB (NF) PO SCH ×2 (08:48→21:05)
[2021-11-11] MEDS: Enoxaparin 40 MG/0.4 ML SYR SUBCUT SCH (11:40)
[2021-11-11] MEDS: Senna TAB 8.6 mg TAB PO SCH (21:05)
[2021-11-12] MEDS: Mometasone/Formoter 100/5 MDI INH SCH ×2 (08:02→20:45)
[2021-11-12 08:17] LABS: Potassium 4.8 mmol/L (3.5-5.0); eGFR CKD-EPI 108.1 (>60)
[2021-11-12] MEDS: Lactulose 30 ml UDC PO SCH ×2 (08:36→20:09)
[2021-11-12] MEDS: Multivitamins/Minerals TAB PO SCH (08:38)
[2021-11-12] MEDS: CloBAZam 10 mg TAB (NF) PO SCH ×2 (08:38→20:06)
[2021-11-12] MEDS: Fluticasone NASAL SPRAY 50MCG 16 gm SPRAY BTL BOTH NARES SCH (08:39)
[2021-11-12] MEDS: Enoxaparin 40 MG/0.4 ML SYR SUBCUT SCH (11:06)
[2021-11-12] MEDS: Senna TAB 8.6 mg TAB PO SCH (20:06)
[2021-11-13] MEDS: Mometasone/Formoter 100/5 MDI INH SCH ×2 (08:20→19:01)
[2021-11-13] MEDS: CloBAZam 10 mg TAB (NF) PO SCH ×2 (08:38→20:33)
[2021-11-13] MEDS: Lactulose 30 ml UDC PO SCH ×2 (08:38→21:50)
[2021-11-13] MEDS: Fluticasone NASAL SPRAY 50MCG 16 gm SPRAY BTL BOTH NARES SCH (08:39)
[2021-11-13] MEDS: Multivitamins/Minerals TAB PO SCH (08:39)
[2021-11-13] MEDS: Enoxaparin 40 MG/0.4 ML SYR SUBCUT SCH (11:24)
[2021-11-13] MEDS: Senna TAB 8.6 mg TAB PO SCH (20:31)
[2021-11-14] MEDS: Lactulose 30 ml UDC PO SCH ×2 (07:54→21:23)
[2021-11-14] MEDS: CloBAZam 10 mg TAB (NF) PO SCH ×2 (07:55→21:20)
[2021-11-14] MEDS: Multivitamins/Minerals TAB PO SCH (07:56)
[2021-11-14] MEDS: Fluticasone NASAL SPRAY 50MCG 16 gm SPRAY BTL BOTH NARES SCH (07:57)
[2021-11-14] MEDS: PAIN RELIEVING RUB (MENTHOL/SALICYLATE) 1 APPLIC TUBE TOPICAL PRN (07:59)
[2021-11-14] MEDS: Mometasone/Formoter 100/5 MDI INH SCH ×2 (08:34→21:54)
[2021-11-14] MEDS: Enoxaparin 40 MG/0.4 ML SYR SUBCUT SCH (11:37)
[2021-11-14] MEDS: Senna TAB 8.6 mg TAB PO SCH (21:22)
[2021-11-15] MEDS: Mometasone/Formoter 100/5 MDI INH SCH ×2 (07:15→19:53)
[2021-11-15] MEDS: Fluticasone NASAL SPRAY 50MCG 16 gm SPRAY BTL BOTH NARES SCH (09:45)
[2021-11-15] MEDS: Lactulose 30 ml UDC PO SCH ×2 (09:45→21:24)
[2021-11-15] MEDS: CloBAZam 10 mg TAB (NF) PO SCH ×2 (09:46→21:21)
[2021-11-15] MEDS: Multivitamins/Minerals TAB PO SCH (09:47)
[2021-11-15] MEDS: Enoxaparin 40 MG/0.4 ML SYR SUBCUT SCH (11:34)
[2021-11-15] MEDS: Senna TAB 8.6 mg TAB PO SCH (21:24)
[2021-11-16] MEDS: Mometasone/Formoter 100/5 MDI INH SCH ×2 (07:11→19:20)
[2021-11-16] MEDS: Enoxaparin 40 MG/0.4 ML SYR SUBCUT SCH (10:23)
[2021-11-16] MEDS: Lactulose 30 ml UDC PO SCH ×2 (10:23→21:14)
[2021-11-16] MEDS: Multivitamins/Minerals TAB PO SCH (10:24)
[2021-11-16] MEDS: CloBAZam 10 mg TAB (NF) PO SCH ×2 (10:24→21:13)
[2021-11-16] MEDS: Fluticasone NASAL SPRAY 50MCG 16 gm SPRAY BTL BOTH NARES SCH (10:24)
[2021-11-16] MEDS: Senna TAB 8.6 mg TAB PO SCH (21:14)
[2021-11-17] MEDS: Mometasone/Formoter 100/5 MDI INH SCH ×2 (07:35→19:40)
[2021-11-17] MEDS: CloBAZam 10 mg TAB (NF) PO SCH ×2 (09:20→20:32)
[2021-11-17] MEDS: Multivitamins/Minerals TAB PO SCH (09:23)
[2021-11-17] MEDS: Lactulose 30 ml UDC PO SCH ×2 (09:26→20:34)
[2021-11-17] MEDS: Fluticasone NASAL SPRAY 50MCG 16 gm SPRAY BTL BOTH NARES SCH (09:29)
[2021-11-17] MEDS: Enoxaparin 40 MG/0.4 ML SYR SUBCUT SCH (10:57)
[2021-11-17] MEDS: Senna TAB 8.6 mg TAB PO SCH (20:34)
[2021-11-18] MEDS: Mometasone/Formoter 100/5 MDI INH SCH ×2 (07:37→20:20)
[2021-11-18] MEDS: CloBAZam 10 mg TAB (NF) PO SCH ×2 (08:27→21:12)
[2021-11-18] MEDS: Multivitamins/Minerals TAB PO SCH (08:27)
[2021-11-18] MEDS: Fluticasone NASAL SPRAY 50MCG 16 gm SPRAY BTL BOTH NARES SCH (08:28)
[2021-11-18] MEDS: Lactulose 30 ml UDC PO SCH ×2 (08:28→21:13)
[2021-11-18] MEDS: Enoxaparin 40 MG/0.4 ML SYR SUBCUT SCH (11:39)
[2021-11-18] MEDS: Senna TAB 8.6 mg TAB PO SCH (21:14)
[2021-11-19] MEDS: Mometasone/Formoter 100/5 MDI INH SCH ×2 (07:27→21:21)
[2021-11-19] MEDS: Enoxaparin 40 MG/0.4 ML SYR SUBCUT SCH (09:07)
[2021-11-19] MEDS: CloBAZam 10 mg TAB (NF) PO SCH (09:07)
[2021-11-19] MEDS: Multivitamins/Minerals TAB PO SCH (09:07)
[2021-11-19] MEDS: Lactulose 30 ml UDC PO SCH ×2 (09:07→21:09)
[2021-11-19] MEDS: Fluticasone NASAL SPRAY 50MCG 16 gm SPRAY BTL BOTH NARES SCH (09:08)
[2021-11-19] MEDS: CMCS: CloBAZam 10 mg TAB (NF) PO SCH (21:09)
[2021-11-19] MEDS: Senna TAB 8.6 mg TAB PO SCH (21:10)
[2021-11-20] MEDS: Mometasone/Formoter 100/5 MDI INH SCH ×2 (07:49→20:11)
[2021-11-20] MEDS: Lactulose 30 ml UDC PO SCH ×2 (09:15→20:09)
[2021-11-20] MEDS: Multivitamins/Minerals TAB PO SCH (09:16)
[2021-11-20] MEDS: CMCS: CloBAZam 10 mg TAB (NF) PO SCH ×2 (09:16→20:06)
[2021-11-20] MEDS: Fluticasone NASAL SPRAY 50MCG 16 gm SPRAY BTL BOTH NARES SCH (09:17)
[2021-11-20] MEDS: Enoxaparin 40 MG/0.4 ML SYR SUBCUT SCH (11:38)
[2021-11-20] MEDS: Senna TAB 8.6 mg TAB PO SCH (20:06)
[2021-11-21] MEDS: Mometasone/Formoter 100/5 MDI INH SCH ×2 (07:46→19:45)
[2021-11-21] MEDS: Multivitamins/Minerals TAB PO SCH (08:21)
[2021-11-21] MEDS: Lactulose 30 ml UDC PO SCH ×2 (08:21→20:11)
[2021-11-21] MEDS: CMCS: CloBAZam 10 mg TAB (NF) PO SCH ×2 (08:21→20:09)
[2021-11-21] MEDS: Fluticasone NASAL SPRAY 50MCG 16 gm SPRAY BTL BOTH NARES SCH (08:22)
[2021-11-21] MEDS: Enoxaparin 40 MG/0.4 ML SYR SUBCUT SCH (12:47)
[2021-11-21] MEDS: Senna TAB 8.6 mg TAB PO SCH (20:10)
[2021-11-22] MEDS: Mometasone/Formoter 100/5 MDI INH SCH ×2 (08:20→20:01)
[2021-11-22] MEDS: Lactulose 30 ml UDC PO SCH ×3 (09:23→20:08)
[2021-11-22] MEDS: Multivitamins/Minerals TAB PO SCH (09:23)
[2021-11-22] MEDS: CMCS: CloBAZam 10 mg TAB (NF) PO SCH ×2 (09:23→20:02)
[2021-11-22] MEDS: Enoxaparin 40 MG/0.4 ML SYR SUBCUT SCH (09:24)
[2021-11-22] MEDS: Fluticasone NASAL SPRAY 50MCG 16 gm SPRAY BTL BOTH NARES SCH (09:35)
[2021-11-22] MEDS: Senna TAB 8.6 mg TAB PO SCH (20:03)
[2021-11-23] MEDS: Mometasone/Formoter 100/5 MDI INH SCH ×2 (07:43→20:04)
[2021-11-23] MEDS: Multivitamins/Minerals TAB PO SCH (09:02)
[2021-11-23] MEDS: CMCS: CloBAZam 10 mg TAB (NF) PO SCH ×2 (09:03→21:26)
[2021-11-23] MEDS: Lactulose 30 ml UDC PO SCH ×2 (09:03→21:29)
[2021-11-23] MEDS: Fluticasone NASAL SPRAY 50MCG 16 gm SPRAY BTL BOTH NARES SCH (09:03)
[2021-11-23] MEDS: Enoxaparin 40 MG/0.4 ML SYR SUBCUT SCH (10:51)
[2021-11-23] MEDS: Senna TAB 8.6 mg TAB PO SCH (21:28)
[2021-11-24] MEDS: Multivitamins/Minerals TAB PO SCH (07:53)
[2021-11-24] MEDS: CMCS: CloBAZam 10 mg TAB (NF) PO SCH ×2 (07:53→21:09)
[2021-11-24] MEDS: Fluticasone NASAL SPRAY 50MCG 16 gm SPRAY BTL BOTH NARES SCH (07:54)
[2021-11-24] MEDS: Lactulose 30 ml UDC PO SCH ×2 (07:55→21:12)
[2021-11-24] MEDS: Mometasone/Formoter 100/5 MDI INH SCH ×2 (08:29→19:48)
[2021-11-24] MEDS: Enoxaparin 40 MG/0.4 ML SYR SUBCUT SCH (11:54)
[2021-11-24] MEDS: Senna TAB 8.6 mg TAB PO SCH (21:11)
[2021-11-25] MEDS: Mometasone/Formoter 100/5 MDI INH SCH ×2 (08:52→19:25)
[2021-11-25] MEDS: Lactulose 30 ml UDC PO SCH ×2 (10:12→21:28)
[2021-11-25] MEDS: Multivitamins/Minerals TAB PO SCH (10:13)
[2021-11-25] MEDS: CMCS: CloBAZam 10 mg TAB (NF) PO SCH ×2 (10:13→21:27)
[2021-11-25] MEDS: Fluticasone NASAL SPRAY 50MCG 16 gm SPRAY BTL BOTH NARES SCH (10:13)
[2021-11-25] MEDS: Enoxaparin 40 MG/0.4 ML SYR SUBCUT SCH (10:13)
[2021-11-25] MEDS: Senna TAB 8.6 mg TAB PO SCH (21:28)
[2021-11-26] MEDS: Mometasone/Formoter 100/5 MDI INH SCH (07:27)
[2021-11-26] MEDS: Lactulose 30 ml UDC PO SCH ×2 (09:04→21:19)
[2021-11-26] MEDS: CMCS: CloBAZam 10 mg TAB (NF) PO SCH ×2 (09:04→21:24)
[2021-11-26] MEDS: Multivitamins/Minerals TAB PO SCH (09:05)
[2021-11-26] MEDS: Enoxaparin 40 MG/0.4 ML SYR SUBCUT SCH (09:08)
[2021-11-26] MEDS: Fluticasone NASAL SPRAY 50MCG 16 gm SPRAY BTL BOTH NARES SCH (09:09)
[2021-11-26] MEDS: Senna TAB 8.6 mg TAB PO SCH (21:20)
[2021-11-27] MEDS: CMCS: CloBAZam 10 mg TAB (NF) PO SCH ×2 (07:42→21:08)
[2021-11-27] MEDS: Lactulose 30 ml UDC PO SCH ×3 (07:42→21:14)
[2021-11-27] MEDS: Multivitamins/Minerals TAB PO SCH (07:43)
[2021-11-27] MEDS: Fluticasone NASAL SPRAY 50MCG 16 gm SPRAY BTL BOTH NARES SCH (07:43)
[2021-11-27] MEDS: SPIRIVA Respimat (tiotropium) 2.5 mcg/inh Inhaler INH SCH (08:22)
[2021-11-27] MEDS: Enoxaparin 40 MG/0.4 ML SYR SUBCUT SCH (11:17)
[2021-11-27] MEDS: Senna TAB 8.6 mg TAB PO SCH (21:08)
[2021-11-28] MEDS: SPIRIVA Respimat (tiotropium) 2.5 mcg/inh Inhaler INH SCH (08:17)
[2021-11-28] MEDS: Lactulose 30 ml UDC PO SCH ×3 (08:53→20:54)
[2021-11-28] MEDS: Multivitamins/Minerals TAB PO SCH (08:53)
[2021-11-28] MEDS: Fluticasone NASAL SPRAY 50MCG 16 gm SPRAY BTL BOTH NARES SCH (08:54)
[2021-11-28] MEDS: CMCS: CloBAZam 10 mg TAB (NF) PO SCH ×2 (08:54→20:48)
[2021-11-28] MEDS: Enoxaparin 40 MG/0.4 ML SYR SUBCUT SCH (12:02)
[2021-11-28] MEDS: Senna TAB 8.6 mg TAB PO SCH (20:48)
[2021-11-29] MEDS: Lactulose 30 ml UDC PO SCH ×2 (07:36→21:19)
[2021-11-29] MEDS: Multivitamins/Minerals TAB PO SCH (07:37)
[2021-11-29] MEDS: CMCS: CloBAZam 10 mg TAB (NF) PO SCH ×2 (07:37→21:18)
[2021-11-29] MEDS: Fluticasone NASAL SPRAY 50MCG 16 gm SPRAY BTL BOTH NARES SCH (07:37)
[2021-11-29] MEDS: SPIRIVA Respimat (tiotropium) 2.5 mcg/inh Inhaler INH SCH (08:18)
[2021-11-29] MEDS: Enoxaparin 40 MG/0.4 ML SYR SUBCUT SCH (12:17)
[2021-11-29] MEDS: Senna TAB 8.6 mg TAB PO SCH (21:19)
[2021-11-30] MEDS: SPIRIVA Respimat (tiotropium) 2.5 mcg/inh Inhaler INH SCH (08:08)
[2021-11-30] MEDS: Lactulose 30 ml UDC PO SCH ×2 (08:44→21:57)
[2021-11-30] MEDS: CMCS: CloBAZam 10 mg TAB (NF) PO SCH ×2 (08:44→21:56)
[2021-11-30] MEDS: Multivitamins/Minerals TAB PO SCH (08:45)
[2021-11-30] MEDS: Fluticasone NASAL SPRAY 50MCG 16 gm SPRAY BTL BOTH NARES SCH (08:46)
[2021-11-30] MEDS: Enoxaparin 40 MG/0.4 ML SYR SUBCUT SCH (10:48)
[2021-11-30] MEDS: Senna TAB 8.6 mg TAB PO SCH (21:57)
[2021-12-01] MEDS: SPIRIVA Respimat (tiotropium) 2.5 mcg/inh Inhaler INH SCH (07:13)
[2021-12-01] MEDS: Lactulose 30 ml UDC PO SCH ×2 (09:37→20:26)
[2021-12-01] MEDS: CMCS: CloBAZam 10 mg TAB (NF) PO SCH ×2 (09:38→20:25)
[2021-12-01] MEDS: Multivitamins/Minerals TAB PO SCH (09:39)
[2021-12-01] MEDS: Fluticasone NASAL SPRAY 50MCG 16 gm SPRAY BTL BOTH NARES SCH (09:40)
[2021-12-01] MEDS: Enoxaparin 40 MG/0.4 ML SYR SUBCUT SCH (10:18)
[2021-12-01] MEDS: Senna TAB 8.6 mg TAB PO SCH (20:26)
[2021-12-02] MEDS: SPIRIVA Respimat (tiotropium) 2.5 mcg/inh Inhaler INH SCH (07:39)
[2021-12-02] MEDS: Lactulose 30 ml UDC PO SCH ×2 (09:39→21:03)
[2021-12-02] MEDS: CMCS: CloBAZam 10 mg TAB (NF) PO SCH ×2 (09:40→21:02)
[2021-12-02] MEDS: Fluticasone NASAL SPRAY 50MCG 16 gm SPRAY BTL BOTH NARES SCH (09:41)
[2021-12-02] MEDS: Enoxaparin 40 MG/0.4 ML SYR SUBCUT SCH (09:41)
[2021-12-02] MEDS: Multivitamins/Minerals TAB PO SCH (09:41)
[2021-12-02] MEDS: Senna TAB 8.6 mg TAB PO SCH (21:03)
[2021-12-03] MEDS: SPIRIVA Respimat (tiotropium) 2.5 mcg/inh Inhaler INH SCH (07:00)
[2021-12-03] MEDS: Multivitamins/Minerals TAB PO SCH (07:59)
[2021-12-03] MEDS: CMCS: CloBAZam 10 mg TAB (NF) PO SCH (07:59)
[2021-12-03] MEDS: Lactulose 30 ml UDC PO SCH ×2 (08:00→20:12)
[2021-12-03] MEDS: Fluticasone NASAL SPRAY 50MCG 16 gm SPRAY BTL BOTH NARES SCH (08:10)
[2021-12-03] MEDS: Enoxaparin 40 MG/0.4 ML SYR SUBCUT SCH (11:54)
[2021-12-03] MEDS: Senna TAB 8.6 mg TAB PO SCH (20:11)
[2021-12-04] MEDS: SPIRIVA Respimat (tiotropium) 2.5 mcg/inh Inhaler INH SCH (07:54)
[2021-12-04] MEDS: Fluticasone NASAL SPRAY 50MCG 16 gm SPRAY BTL BOTH NARES SCH (10:24)
[2021-12-04] MEDS: Multivitamins/Minerals TAB PO SCH (10:24)
[2021-12-04] MEDS: Lactulose 30 ml UDC PO SCH ×2 (10:24→21:50)
[2021-12-04] MEDS: Enoxaparin 40 MG/0.4 ML SYR SUBCUT SCH (10:24)
[2021-12-04] MEDS: Senna TAB 8.6 mg TAB PO SCH (21:49)
[2021-12-05] MEDS: SPIRIVA Respimat (tiotropium) 2.5 mcg/inh Inhaler INH SCH (07:06)
[2021-12-05] MEDS: Lactulose 30 ml UDC PO SCH ×2 (08:40→20:32)
[2021-12-05] MEDS: Multivitamins/Minerals TAB PO SCH (08:41)
[2021-12-05] MEDS: Fluticasone NASAL SPRAY 50MCG 16 gm SPRAY BTL BOTH NARES SCH (08:41)
[2021-12-05] MEDS: Enoxaparin 40 MG/0.4 ML SYR SUBCUT SCH (11:14)
[2021-12-05] MEDS: Senna TAB 8.6 mg TAB PO SCH (20:32)
[2021-12-06] MEDS: SPIRIVA Respimat (tiotropium) 2.5 mcg/inh Inhaler INH SCH (07:31)
[2021-12-06] MEDS: Lactulose 30 ml UDC PO SCH ×2 (07:56→22:07)
[2021-12-06] MEDS: Multivitamins/Minerals TAB PO SCH (07:59)
[2021-12-06] MEDS: Fluticasone NASAL SPRAY 50MCG 16 gm SPRAY BTL BOTH NARES SCH (08:36)
[2021-12-06 09:21] LABS: ABS Eosinophils 0.2 10^3/ul (0-0.6); ABS Lymphocytes 1.6 10^3/ul (1.0-4.8); ABS Monocytes 0.4 10^3/ul (0-0.8); Eosinophil % 2.7 %; Hematocrit 41 % (42-52); Hemoglobin 13.9 g/dL (14.0-18.0); Lymphocyte % 25.2 %; Mean Corpuscular HGB Conc 34 g/dL (31-36); Mean Corpuscular Hemoglobin 31 pg (27-31); Mean Corpuscular Volume 91 fL (80-94); Mean Platelet Volume 8.1 fL (7.4-10.4); Nucleated Red Blood Cells % 0.1; Platelet Count 280 10^3/uL (150-450); Red Blood Count 4.53 10^6 /uL (4.18-5.48); Red Cell Distribution Width 14 % (10-15); White Blood Count 6.2 10^3/uL (3.5-10.8)
[2021-12-06] MEDS: CloBAZam 10 mg TAB (NF) PO SCH ×2 (09:59→22:07)
[2021-12-06 10:12] LABS: Calcium 9.2 mg/dL (8.6-10.3); Magnesium 1.9 mg/dL (1.9-2.7); Potassium 4.3 mmol/L (3.5-5.0); eGFR CKD-EPI 111.1 (>60)
[2021-12-06] MEDS: Enoxaparin 40 MG/0.4 ML SYR SUBCUT SCH (11:22)
[2021-12-06] MEDS: Senna TAB 8.6 mg TAB PO SCH (22:06)
[2021-12-07] MEDS: Lactulose 30 ml UDC PO SCH ×2 (08:48→21:34)
[2021-12-07] MEDS: CloBAZam 10 mg TAB (NF) PO SCH ×2 (08:51→21:34)
[2021-12-07] MEDS: Multivitamins/Minerals TAB PO SCH (08:51)
[2021-12-07] MEDS: Fluticasone NASAL SPRAY 50MCG 16 gm SPRAY BTL BOTH NARES SCH (08:59)
[2021-12-07] MEDS: SPIRIVA Respimat (tiotropium) 2.5 mcg/inh Inhaler INH SCH (09:19)
[2021-12-07] MEDS: Enoxaparin 40 MG/0.4 ML SYR SUBCUT SCH (10:57)
[2021-12-07] MEDS: Senna TAB 8.6 mg TAB PO SCH (21:34)
[2021-12-08] MEDS: SPIRIVA Respimat (tiotropium) 2.5 mcg/inh Inhaler INH SCH (07:15)
[2021-12-08] MEDS: CloBAZam 10 mg TAB (NF) PO SCH (10:23)
[2021-12-08] MEDS: Lactulose 30 ml UDC PO SCH (10:23)
[2021-12-08] MEDS: Multivitamins/Minerals TAB PO SCH (10:23)
[2021-12-08] MEDS: Enoxaparin 40 MG/0.4 ML SYR SUBCUT SCH (10:24)
[2021-12-08] MEDS: Fluticasone NASAL SPRAY 50MCG 16 gm SPRAY BTL BOTH NARES SCH (10:24)
[2021-12-08 11:03] VITALS: BP 120/70
== END 2021-12-08 11:39 | disposition short-term general hospital (02) | DRG 750 ==
LOC: SUATTDRO 18:40 → MED 18:40
PROVIDERS: ADMIT Hospitalist; ATTEND Hospitalist

== ENCOUNTER 2021-12-08 11:38 | Observation (INO) ==
[2021-12-08] MEDS ORDERED: Ondansetron 4 mg VIAL 2 MG/ML 2 ml VIAL IV PRN (11:51)
[2021-12-08] MEDS ORDERED: Albuterol HFA INHALER 8 gm MDI INH PRN (11:56)
[2021-12-08] MEDS ORDERED: Magnesium Hydroxide LIQ 30 ML UDC PO PRN (11:56)
[2021-12-08] MEDS: Mometasone/Formoter 100/5 MDI INH SCH (18:52)
[2021-12-08] MEDS ORDERED: Senna TAB 8.6 mg TAB PO SCH (21:00)
[2021-12-08] MEDS: Lactulose 30 ml UDC PO SCH (21:01)
[2021-12-08] MEDS: CMCS: CloBAZam 10 mg TAB (NF) PO SCH (21:01)
[2021-12-09 04:51] LABS: ABS Eosinophils 0.2 10^3/ul (0-0.6); ABS Monocytes 0.5 10^3/ul (0-0.8); ABS Neutrophils 3.9 10^3/ul (1.5-7.7); Eosinophil % 2.5 %; Hematocrit 38 % (42-52); Hemoglobin 12.7 g/dL (14.0-18.0); Mean Corpuscular HGB Conc 34 g/dL (31-36); Mean Corpuscular Hemoglobin 31 pg (27-31); Mean Corpuscular Volume 92 fL (80-94); Mean Platelet Volume 8.5 fL (7.4-10.4); Platelet Count 265 10^3/uL (150-450); Red Blood Count 4.11 10^6 /uL (4.18-5.48); Red Cell Distribution Width 14 % (10-15); White Blood Count 6.7 10^3/uL (3.5-10.8)
[2021-12-09 05:05] LABS: Calcium 8.7 mg/dL (8.6-10.3); Magnesium 1.8 mg/dL (1.9-2.7); Potassium 4.2 mmol/L (3.5-5.0); eGFR CKD-EPI 111.1 (>60)
[2021-12-09] MEDS: Mometasone/Formoter 100/5 MDI INH SCH (07:35)
[2021-12-09] MEDS ORDERED: Vitamin THERAPEUTIC TAB PO SCH (09:00)
[2021-12-09] MEDS ORDERED: Fluticasone NASAL SPRAY 50MCG 16 gm SPRAY BTL BOTH NARES SCH (09:00)
[2021-12-09] MEDS: Lactulose 30 ml UDC PO SCH (10:15)
[2021-12-09] MEDS: CMCS: CloBAZam 10 mg TAB (NF) PO SCH (10:15)
[2021-12-09 11:26] VITALS: BP 115/61
[2021-12-10 12:08] LABS: Lacosamide 16.3 mcg/mL (1.0 - 10.0)
== END 2021-12-09 13:36 | disposition swing bed (61) ==
LOC: MED
PROVIDERS: ADMIT Hospitalist; ATTEND Internal Medicine

== ENCOUNTER 2021-12-09 13:54 | Inpatient (IN) ==
[2021-12-09] MEDS ORDERED: Magnesium Hydroxide LIQ 30 ML UDC PO PRN (14:42)
[2021-12-09] MEDS: Enoxaparin 40 MG/0.4 ML SYR SUBCUT SCH (15:31)
[2021-12-09] MEDS: Mometasone/Formoter 100/5 MDI INH SCH (19:13)
[2021-12-09] MEDS: Senna TAB 8.6 mg TAB PO SCH (20:46)
[2021-12-09] MEDS: CloBAZam 10 mg TAB (NF) PO SCH (21:00)
[2021-12-10] MEDS: Mometasone/Formoter 100/5 MDI INH SCH ×2 (07:47→19:15)
[2021-12-10] MEDS: Fluticasone NASAL SPRAY 50MCG 16 gm SPRAY BTL BOTH NARES SCH (08:54)
[2021-12-10] MEDS: CloBAZam 10 mg TAB (NF) PO SCH ×2 (08:54→20:45)
[2021-12-10] MEDS: Lactulose 30 ml UDC PO SCH ×2 (09:59→20:46)
[2021-12-10] MEDS: Enoxaparin 40 MG/0.4 ML SYR SUBCUT SCH (15:55)
[2021-12-10] MEDS: Albuterol HFA INHALER 8 gm MDI INH PRN (19:17)
[2021-12-10] MEDS: Senna TAB 8.6 mg TAB PO SCH ×2 (20:44→20:51)
[2021-12-11] MEDS: Mometasone/Formoter 100/5 MDI INH SCH ×2 (07:24→19:34)
[2021-12-11] MEDS: Lactulose 30 ml UDC PO SCH ×2 (07:34→21:29)
[2021-12-11] MEDS: CloBAZam 10 mg TAB (NF) PO SCH ×2 (07:34→21:25)
[2021-12-11] MEDS: Fluticasone NASAL SPRAY 50MCG 16 gm SPRAY BTL BOTH NARES SCH (07:38)
[2021-12-11] MEDS: Enoxaparin 40 MG/0.4 ML SYR SUBCUT SCH (16:18)
[2021-12-11] MEDS: Senna TAB 8.6 mg TAB PO SCH (21:25)
[2021-12-12] MEDS: Mometasone/Formoter 100/5 MDI INH SCH ×2 (07:38→19:54)
[2021-12-12] MEDS: CloBAZam 10 mg TAB (NF) PO SCH ×2 (09:10→20:25)
[2021-12-12] MEDS: Lactulose 30 ml UDC PO SCH ×2 (09:10→20:44)
[2021-12-12] MEDS: Fluticasone NASAL SPRAY 50MCG 16 gm SPRAY BTL BOTH NARES SCH (09:10)
[2021-12-12] MEDS: CMCS: Ketoconazole 2 % CREAM (NF) 30 GM TUBE TOPICAL SCH ×2 (12:09→20:44)
[2021-12-12] MEDS: Enoxaparin 40 MG/0.4 ML SYR SUBCUT SCH (15:26)
[2021-12-12] MEDS: Senna TAB 8.6 mg TAB PO SCH (20:25)
[2021-12-13] MEDS: Mometasone/Formoter 100/5 MDI INH SCH ×2 (07:24→18:54)
[2021-12-13] MEDS: Lactulose 30 ml UDC PO SCH ×2 (08:24→21:59)
[2021-12-13] MEDS: CloBAZam 10 mg TAB (NF) PO SCH ×2 (08:24→21:58)
[2021-12-13] MEDS: CMCS: Ketoconazole 2 % CREAM (NF) 30 GM TUBE TOPICAL SCH ×2 (08:24→21:59)
[2021-12-13] MEDS: Fluticasone NASAL SPRAY 50MCG 16 gm SPRAY BTL BOTH NARES SCH (08:25)
[2021-12-13] MEDS: Enoxaparin 40 MG/0.4 ML SYR SUBCUT SCH (14:49)
[2021-12-13] MEDS: Senna TAB 8.6 mg TAB PO SCH (21:59)
[2021-12-14] MEDS: Mometasone/Formoter 100/5 MDI INH SCH ×2 (07:11→18:56)
[2021-12-14] MEDS: CloBAZam 10 mg TAB (NF) PO SCH ×2 (09:35→21:17)
[2021-12-14] MEDS: Fluticasone NASAL SPRAY 50MCG 16 gm SPRAY BTL BOTH NARES SCH (09:36)
[2021-12-14] MEDS: Lactulose 30 ml UDC PO SCH ×2 (09:38→21:23)
[2021-12-14] MEDS: CMCS: Ketoconazole 2 % CREAM (NF) 30 GM TUBE TOPICAL SCH (09:47)
[2021-12-14] MEDS: Enoxaparin 40 MG/0.4 ML SYR SUBCUT SCH (15:02)
[2021-12-14] MEDS: Senna TAB 8.6 mg TAB PO SCH (21:23)
[2021-12-15] MEDS: CMCS: Ketoconazole 2 % CREAM (NF) 30 GM TUBE TOPICAL SCH ×2 (00:52→09:53)
[2021-12-15] MEDS: Mometasone/Formoter 100/5 MDI INH SCH ×2 (07:18→18:51)
[2021-12-15] MEDS: CloBAZam 10 mg TAB (NF) PO SCH (09:03)
[2021-12-15] MEDS: Fluticasone NASAL SPRAY 50MCG 16 gm SPRAY BTL BOTH NARES SCH (09:09)
[2021-12-15] MEDS: Lactulose 30 ml UDC PO SCH (09:11)
[2021-12-15] MEDS: Enoxaparin 40 MG/0.4 ML SYR SUBCUT SCH (15:44)
[2021-12-16] MEDS: Lactulose 30 ml UDC PO SCH ×3 (02:31→20:50)
[2021-12-16] MEDS: Senna TAB 8.6 mg TAB PO SCH ×2 (02:31→20:50)
[2021-12-16] MEDS: CloBAZam 10 mg TAB (NF) PO SCH ×3 (02:38→20:49)
[2021-12-16] MEDS: CMCS: Ketoconazole 2 % CREAM (NF) 30 GM TUBE TOPICAL SCH ×3 (02:42→20:51)
[2021-12-16] MEDS: Mometasone/Formoter 100/5 MDI INH SCH ×2 (06:51→19:39)
[2021-12-16] MEDS: Fluticasone NASAL SPRAY 50MCG 16 gm SPRAY BTL BOTH NARES SCH (09:50)
[2021-12-16] MEDS: Enoxaparin 40 MG/0.4 ML SYR SUBCUT SCH (16:34)
[2021-12-17] MEDS: Mometasone/Formoter 100/5 MDI INH SCH ×2 (07:05→19:36)
[2021-12-17] MEDS: CloBAZam 10 mg TAB (NF) PO SCH ×2 (10:47→21:20)
[2021-12-17] MEDS: CMCS: Ketoconazole 2 % CREAM (NF) 30 GM TUBE TOPICAL SCH (10:48)
[2021-12-17] MEDS: Lactulose 30 ml UDC PO SCH ×2 (10:48→21:20)
[2021-12-17] MEDS: Fluticasone NASAL SPRAY 50MCG 16 gm SPRAY BTL BOTH NARES SCH (10:48)
[2021-12-17] MEDS: Enoxaparin 40 MG/0.4 ML SYR SUBCUT SCH (16:33)
[2021-12-17] MEDS: Senna TAB 8.6 mg TAB PO SCH (21:26)
[2021-12-18] MEDS: CMCS: Ketoconazole 2 % CREAM (NF) 30 GM TUBE TOPICAL SCH ×4 (01:37→20:26)
[2021-12-18] MEDS: Mometasone/Formoter 100/5 MDI INH SCH ×2 (07:56→20:34)
[2021-12-18] MEDS: Lactulose 30 ml UDC PO SCH ×3 (09:56→20:26)
[2021-12-18] MEDS: Fluticasone NASAL SPRAY 50MCG 16 gm SPRAY BTL BOTH NARES SCH (09:56)
[2021-12-18] MEDS: CloBAZam 10 mg TAB (NF) PO SCH ×2 (09:56→20:02)
[2021-12-18] MEDS: Enoxaparin 40 MG/0.4 ML SYR SUBCUT SCH (15:52)
[2021-12-18] MEDS: Senna TAB 8.6 mg TAB PO SCH (20:26)
[2021-12-19] MEDS: Mometasone/Formoter 100/5 MDI INH SCH ×2 (08:22→20:50)
[2021-12-19] MEDS: Lactulose 30 ml UDC PO SCH ×2 (08:55→21:00)
[2021-12-19] MEDS: CMCS: Ketoconazole 2 % CREAM (NF) 30 GM TUBE TOPICAL SCH ×2 (08:56→21:00)
[2021-12-19] MEDS: CloBAZam 10 mg TAB (NF) PO SCH ×2 (08:56→20:59)
[2021-12-19] MEDS: Fluticasone NASAL SPRAY 50MCG 16 gm SPRAY BTL BOTH NARES SCH (08:57)
[2021-12-19] MEDS: Enoxaparin 40 MG/0.4 ML SYR SUBCUT SCH (14:54)
[2021-12-19] MEDS: Senna TAB 8.6 mg TAB PO SCH (21:00)
[2021-12-20] MEDS: Mometasone/Formoter 100/5 MDI INH SCH ×2 (08:20→20:29)
[2021-12-20] MEDS: CloBAZam 10 mg TAB (NF) PO SCH ×2 (09:02→20:13)
[2021-12-20] MEDS: Fluticasone NASAL SPRAY 50MCG 16 gm SPRAY BTL BOTH NARES SCH (09:03)
[2021-12-20] MEDS: Lactulose 30 ml UDC PO SCH ×2 (09:03→20:16)
[2021-12-20] MEDS: CMCS: Ketoconazole 2 % CREAM (NF) 30 GM TUBE TOPICAL SCH ×2 (09:13→20:31)
[2021-12-20] MEDS: Enoxaparin 40 MG/0.4 ML SYR SUBCUT SCH (14:47)
[2021-12-20] MEDS: Senna TAB 8.6 mg TAB PO SCH (20:15)
[2021-12-21] MEDS: Mometasone/Formoter 100/5 MDI INH SCH ×2 (08:07→19:45)
[2021-12-21] MEDS: Fluticasone NASAL SPRAY 50MCG 16 gm SPRAY BTL BOTH NARES SCH (09:03)
[2021-12-21] MEDS: Lactulose 30 ml UDC PO SCH ×2 (09:03→20:56)
[2021-12-21] MEDS: CloBAZam 10 mg TAB (NF) PO SCH ×2 (09:04→20:50)
[2021-12-21] MEDS: CMCS: Ketoconazole 2 % CREAM (NF) 30 GM TUBE TOPICAL SCH ×2 (09:05→22:42)
[2021-12-21] MEDS: Enoxaparin 40 MG/0.4 ML SYR SUBCUT SCH (14:48)
[2021-12-21] MEDS: Senna TAB 8.6 mg TAB PO SCH (20:50)
[2021-12-22] MEDS: Mometasone/Formoter 100/5 MDI INH SCH ×2 (07:26→19:17)
[2021-12-22] MEDS: CloBAZam 10 mg TAB (NF) PO SCH ×2 (09:10→21:10)
[2021-12-22] MEDS: Fluticasone NASAL SPRAY 50MCG 16 gm SPRAY BTL BOTH NARES SCH (09:10)
[2021-12-22] MEDS: Lactulose 30 ml UDC PO SCH ×2 (09:10→21:09)
[2021-12-22] MEDS: CMCS: Ketoconazole 2 % CREAM (NF) 30 GM TUBE TOPICAL SCH ×2 (11:20→21:09)
[2021-12-22] MEDS: Enoxaparin 40 MG/0.4 ML SYR SUBCUT SCH (15:13)
[2021-12-22] MEDS: Senna TAB 8.6 mg TAB PO SCH (21:09)
[2021-12-23] MEDS: Mometasone/Formoter 100/5 MDI INH SCH ×2 (07:51→19:30)
[2021-12-23] MEDS: Fluticasone NASAL SPRAY 50MCG 16 gm SPRAY BTL BOTH NARES SCH (09:11)
[2021-12-23] MEDS: Lactulose 30 ml UDC PO SCH ×2 (09:13→21:45)
[2021-12-23] MEDS: CloBAZam 10 mg TAB (NF) PO SCH ×2 (09:13→21:44)
[2021-12-23] MEDS: CMCS: Ketoconazole 2 % CREAM (NF) 30 GM TUBE TOPICAL SCH ×2 (09:14→21:59)
[2021-12-23] MEDS: Enoxaparin 40 MG/0.4 ML SYR SUBCUT SCH (16:17)
[2021-12-23] MEDS: Senna TAB 8.6 mg TAB PO SCH (21:45)
[2021-12-24] MEDS: Mometasone/Formoter 100/5 MDI INH SCH ×2 (07:05→19:03)
[2021-12-24] MEDS: Lactulose 30 ml UDC PO SCH ×2 (08:30→19:51)
[2021-12-24] MEDS: CloBAZam 10 mg TAB (NF) PO SCH ×2 (08:35→19:47)
[2021-12-24] MEDS: Fluticasone NASAL SPRAY 50MCG 16 gm SPRAY BTL BOTH NARES SCH (08:45)
[2021-12-24] MEDS: CMCS: Ketoconazole 2 % CREAM (NF) 30 GM TUBE TOPICAL SCH ×2 (08:45→19:55)
[2021-12-24] MEDS: Enoxaparin 40 MG/0.4 ML SYR SUBCUT SCH (15:01)
[2021-12-24] MEDS: Senna TAB 8.6 mg TAB PO SCH (19:47)
[2021-12-25] MEDS: Mometasone/Formoter 100/5 MDI INH SCH ×2 (07:58→19:07)
[2021-12-25] MEDS: Lactulose 30 ml UDC PO SCH ×2 (09:43→20:05)
[2021-12-25] MEDS: Fluticasone NASAL SPRAY 50MCG 16 gm SPRAY BTL BOTH NARES SCH (09:43)
[2021-12-25] MEDS: CloBAZam 10 mg TAB (NF) PO SCH ×2 (09:44→20:01)
[2021-12-25] MEDS: CMCS: Ketoconazole 2 % CREAM (NF) 30 GM TUBE TOPICAL SCH ×2 (10:00→20:10)
[2021-12-25] MEDS: Enoxaparin 40 MG/0.4 ML SYR SUBCUT SCH (16:16)
[2021-12-25] MEDS: Senna TAB 8.6 mg TAB PO SCH (20:03)
[2021-12-26] MEDS: Mometasone/Formoter 100/5 MDI INH SCH ×2 (07:48→19:16)
[2021-12-26] MEDS: CloBAZam 10 mg TAB (NF) PO SCH ×2 (10:10→20:57)
[2021-12-26] MEDS: Lactulose 30 ml UDC PO SCH ×2 (10:11→20:56)
[2021-12-26] MEDS: CMCS: Ketoconazole 2 % CREAM (NF) 30 GM TUBE TOPICAL SCH (10:11)
[2021-12-26] MEDS: Fluticasone NASAL SPRAY 50MCG 16 gm SPRAY BTL BOTH NARES SCH (10:11)
[2021-12-26] MEDS: Enoxaparin 40 MG/0.4 ML SYR SUBCUT SCH (15:54)
[2021-12-26] MEDS: Senna TAB 8.6 mg TAB PO SCH (20:56)
[2021-12-27] MEDS: CMCS: Ketoconazole 2 % CREAM (NF) 30 GM TUBE TOPICAL SCH (00:03)
[2021-12-27] MEDS: Albuterol HFA INHALER 8 gm MDI INH PRN ×2 (04:16→09:02)
[2021-12-27] MEDS: Mometasone/Formoter 100/5 MDI INH SCH ×2 (07:19→09:02)
[2021-12-27 08:59] VITALS: BP 111/73
[2021-12-27 10:22] LABS: ABS Lymphocytes 1.2 10^3/ul (1.0-4.8); ABS Monocytes 0.8 10^3/ul (0-0.8); ABS Neutrophils 6.1 10^3/ul (1.5-7.7); Eosinophil % 0.4 %; Hematocrit 44 % (42-52); Hemoglobin 14.6 g/dL (14.0-18.0); Lymphocyte % 14.3 %; Mean Corpuscular HGB Conc 33 g/dL (31-36); Mean Corpuscular Hemoglobin 31 pg (27-31); Mean Corpuscular Volume 92 fL (80-94); Mean Platelet Volume 8.7 fL (7.4-10.4); Platelet Count 256 10^3/uL (150-450); Red Blood Count 4.78 10^6 /uL (4.18-5.48); Red Cell Distribution Width 14 % (10-15); White Blood Count 8.1 10^3/uL (3.5-10.8)
[2021-12-27 10:27] LABS: PCO2 Arterial 47 mmHg (35-45); PO2 Arterial 67 mmHg (80-100)
[2021-12-27 11:07] LABS: Calcium 9.1 mg/dL (8.6-10.3); Potassium 4.4 mmol/L (3.5-5.0); eGFR CKD-EPI 109.6 (>60)
[2021-12-27] MEDS ORDERED: Piperacillin/Tazobac ADVAN 3.375 GM in NS 0.9% 100 ml BAG 100 ML IV ONE (12:17)
[2021-12-27] MEDS: CloBAZam 10 mg TAB (NF) PO SCH (12:40)
[2021-12-27] MEDS: Lactulose 30 ml UDC PO SCH (12:41)
[2021-12-27] MEDS ORDERED: Zosyn per Pharmacy NOTE FOLLOW UP SCH (13:00)
== END 2021-12-27 12:40 | disposition short-term general hospital (02) | DRG 100 ==
LOC: MED 13:54 → SUATTDRO 13:54
PROVIDERS: ADMIT Physician Assistant; ATTEND Internal Medicine

== ENCOUNTER 2021-12-27 12:42 | Inpatient (IN) ==
[2021-12-27] MEDS ORDERED: Zosyn per Pharmacy NOTE FOLLOW UP SCH (13:00)
[2021-12-27] MEDS ORDERED: ZOSYN 3.375 GM x ONE DOSE over 30 miuntes IV (13:00)
[2021-12-27] MEDS ORDERED: Magnesium Hydroxide LIQ 30 ML UDC PO PRN (13:14)
[2021-12-27] MEDS: NS 0.9% 1000 ml BAG 1,000 ML IV SCH (14:22)
[2021-12-27] MEDS ORDERED: Albuterol/Ipratropium NEB.SOL (2.5/0.5 MG) 3 ML NEB.SOLN INH ONE (15:15)
[2021-12-27] MEDS: ZOSYN 3.375 GM Q8H per EXTENDED INFUSION IV SCH (17:27)
[2021-12-27] MEDS: Mometasone/Formoter 100/5 MDI INH SCH (19:50)
[2021-12-27] MEDS: CloBAZam 10 mg TAB (NF) PO SCH (20:38)
[2021-12-27] MEDS: Senna TAB 8.6 mg TAB PO SCH (20:39)
[2021-12-27] MEDS: Lactulose 30 ml UDC PO SCH (22:24)
[2021-12-28] MEDS: ZOSYN 3.375 GM Q8H per EXTENDED INFUSION IV SCH ×3 (01:51→18:23)
[2021-12-28] MEDS: NS 0.9% 1000 ml BAG 1,000 ML IV SCH (03:22)
[2021-12-28] MEDS: CloBAZam 10 mg TAB (NF) PO SCH ×2 (08:56→21:37)
[2021-12-28] MEDS: Vitamin THERAPEUTIC TAB PO SCH (08:56)
[2021-12-28] MEDS: Fluticasone NASAL SPRAY 50MCG 16 gm SPRAY BTL BOTH NARES SCH (09:13)
[2021-12-28] MEDS: Lactulose 30 ml UDC PO SCH ×2 (09:13→21:38)
[2021-12-28] MEDS: Mometasone/Formoter 100/5 MDI INH SCH ×2 (10:28→17:55)
[2021-12-28] MEDS: Enoxaparin 40 MG/0.4 ML SYR SUBCUT SCH (14:19)
[2021-12-28 15:02] LABS: Albumin 3.1 g/dL (3.2-5.2); Calcium 8.7 mg/dL (8.6-10.3); Globulin 3.2 g/dL (2-4); Potassium 4.3 mmol/L (3.5-5.0); Total Bilirubin 0.4 mg/dL (0.2-1.0); Total Protein 6.3 g/dL (6.4-8.9); eGFR CKD-EPI 109.6 (>60)
[2021-12-28] MEDS ORDERED: Albuterol/Ipratropium NEB.SOL (2.5/0.5 MG) 3 ML NEB.SOLN INH ONE (18:03)
[2021-12-28] MEDS: Albuterol HFA INHALER 8 gm MDI INH PRN (18:05)
[2021-12-28] MEDS: Senna TAB 8.6 mg TAB PO SCH (21:38)
[2021-12-29] MEDS: ZOSYN 3.375 GM Q8H per EXTENDED INFUSION IV SCH ×3 (01:10→19:45)
[2021-12-29 05:57] LABS: ABS Lymphocytes 1.2 10^3/ul (1.0-4.8); ABS Monocytes 0.5 10^3/ul (0-0.8); ABS Neutrophils 5.3 10^3/ul (1.5-7.7); Hematocrit 37 % (42-52); Hemoglobin 12.3 g/dL (14.0-18.0); Lymphocyte % 17.6 %; Mean Corpuscular HGB Conc 33 g/dL (31-36); Mean Corpuscular Hemoglobin 31 pg (27-31); Mean Corpuscular Volume 93 fL (80-94); Platelet Count 223 10^3/uL (150-450); Red Blood Count 4.02 10^6 /uL (4.18-5.48); Red Cell Distribution Width 14 % (10-15)
[2021-12-29 06:30] LABS: Calcium 8.7 mg/dL (8.6-10.3); Potassium 4.3 mmol/L (3.5-5.0); eGFR CKD-EPI 111.6 (>60)
[2021-12-29] MEDS ORDERED: Lidocaine PATCH 5% PATCH TRANSDERM PRN (08:32)
[2021-12-29] MEDS: Mometasone/Formoter 100/5 MDI INH SCH ×2 (08:33→19:00)
[2021-12-29] MEDS: Albuterol HFA INHALER 8 gm MDI INH PRN (08:33)
[2021-12-29] MEDS: Fluticasone NASAL SPRAY 50MCG 16 gm SPRAY BTL BOTH NARES SCH (10:59)
[2021-12-29] MEDS: Lactulose 30 ml UDC PO SCH ×5 (10:59→21:18)
[2021-12-29] MEDS: CloBAZam 10 mg TAB (NF) PO SCH ×2 (11:01→21:06)
[2021-12-29] MEDS: Vitamin THERAPEUTIC TAB PO SCH (11:01)
[2021-12-29] MEDS ORDERED: Valproic Acid IV 500 MG in NS 0.9% 100 ml BAG 100 ML IVPB SCH (12:00)
[2021-12-29] MEDS: Enoxaparin 40 MG/0.4 ML SYR SUBCUT SCH (13:22)
[2021-12-29] MEDS ORDERED: Albuterol 2.5mg/3 ml (0.083%) NEB.SOLN INH PRN (16:34)
[2021-12-29] MEDS ORDERED: Albuterol 2.5mg/3 ml (0.083%) NEB.SOLN INH ONE (16:37)
[2021-12-29] MEDS: Valproic Acid IV 500 MG in NS 0.9% 100 ml BAG 100 ML IVPB SCH ×2 (16:56→23:54)
[2021-12-29] MEDS: LaCOSAMide VIAL 200 MG in NS 0.9% 50 ML 50 ML IV SCH (18:38)
[2021-12-29] MEDS: Senna TAB 8.6 mg TAB PO SCH (21:06)
[2021-12-30] MEDS: ZOSYN 3.375 GM Q8H per EXTENDED INFUSION IV SCH ×3 (01:26→17:38)
[2021-12-30 05:20] LABS: ABS Lymphocytes 1.2 10^3/ul (1.0-4.8); ABS Monocytes 0.4 10^3/ul (0-0.8); ABS Neutrophils 5.8 10^3/ul (1.5-7.7); Hematocrit 37 % (42-52); Hemoglobin 12.1 g/dL (14.0-18.0); Lymphocyte % 16.1 %; Mean Corpuscular HGB Conc 33 g/dL (31-36); Mean Corpuscular Hemoglobin 30 pg (27-31); Mean Corpuscular Volume 93 fL (80-94); Platelet Count 232 10^3/uL (150-450); Red Blood Count 3.99 10^6 /uL (4.18-5.48); Red Cell Distribution Width 14 % (10-15); White Blood Count 7.4 10^3/uL (3.5-10.8)
[2021-12-30] MEDS: LaCOSAMide VIAL 200 MG in NS 0.9% 50 ML 50 ML IV SCH (05:39)
[2021-12-30 05:40] LABS: Calcium 8.5 mg/dL (8.6-10.3); Potassium 4.3 mmol/L (3.5-5.0); eGFR CKD-EPI 110.6 (>60)
[2021-12-30] MEDS: Mometasone/Formoter 100/5 MDI INH SCH ×2 (07:14→19:10)
[2021-12-30] MEDS: Valproic Acid IV 500 MG in NS 0.9% 100 ml BAG 100 ML IVPB SCH (09:06)
[2021-12-30] MEDS: CloBAZam 10 mg TAB (NF) PO SCH ×2 (09:18→22:33)
[2021-12-30] MEDS: Vitamin THERAPEUTIC TAB PO SCH (09:19)
[2021-12-30] MEDS: Fluticasone NASAL SPRAY 50MCG 16 gm SPRAY BTL BOTH NARES SCH (09:37)
[2021-12-30] MEDS: Lactulose 30 ml UDC PO SCH ×4 (09:37→22:34)
[2021-12-30] MEDS: Enoxaparin 40 MG/0.4 ML SYR SUBCUT SCH (14:13)
[2021-12-30] MEDS: Senna TAB 8.6 mg TAB PO SCH (22:33)
[2021-12-31] MEDS: ZOSYN 3.375 GM Q8H per EXTENDED INFUSION IV SCH ×3 (01:20→17:25)
[2021-12-31 05:48] LABS: ABS Monocytes 0.7 10^3/ul (0-0.8); ABS Neutrophils 4.9 10^3/ul (1.5-7.7); Eosinophil % 0.1 %; Hematocrit 39 % (42-52); Hemoglobin 12.7 g/dL (14.0-18.0); Lymphocyte % 25.6 %; Mean Corpuscular HGB Conc 33 g/dL (31-36); Mean Corpuscular Hemoglobin 31 pg (27-31); Mean Corpuscular Volume 93 fL (80-94); Mean Platelet Volume 8.8 fL (7.4-10.4); Nucleated Red Blood Cells % 0.1; Platelet Count 219 10^3/uL (150-450); Red Blood Count 4.17 10^6 /uL (4.18-5.48); Red Cell Distribution Width 14 % (10-15); White Blood Count 7.6 10^3/uL (3.5-10.8)
[2021-12-31 06:47] LABS: Calcium 8.6 mg/dL (8.6-10.3); Potassium 3.9 mmol/L (3.5-5.0); eGFR CKD-EPI 112.2 (>60)
[2021-12-31] MEDS: Mometasone/Formoter 100/5 MDI INH SCH ×2 (07:31→19:09)
[2021-12-31] MEDS ORDERED: NS 0.9% 1000 ml BAG 1,000 ML IV SCH (08:45)
[2021-12-31] MEDS: CloBAZam 10 mg TAB (NF) PO SCH ×2 (09:30→22:00)
[2021-12-31] MEDS: Lactulose 30 ml UDC PO SCH ×4 (09:32→22:06)
[2021-12-31] MEDS: Vitamin THERAPEUTIC TAB PO SCH (09:32)
[2021-12-31] MEDS: guaiFENesin 100 mg/5 ml LIQ unit dose cup PO SCH ×3 (09:33→22:07)
[2021-12-31 11:17] LABS: Lacosamide 11.9 mcg/mL (1.0 - 10.0)
[2021-12-31] MEDS: Fluticasone NASAL SPRAY 50MCG 16 gm SPRAY BTL BOTH NARES SCH (12:17)
[2021-12-31] MEDS: Enoxaparin 40 MG/0.4 ML SYR SUBCUT SCH (12:54)
[2021-12-31] MEDS ORDERED: NS 0.9% 1000 ml BAG 1,000 ML IV ONE (17:45)
[2021-12-31] MEDS ORDERED: NS 0.45% 1000 ml BAG 1,000 ML IV SCH (18:00)
[2021-12-31] MEDS: Senna TAB 8.6 mg TAB PO SCH (21:59)
[2022-01-01] MEDS: NS 0.45% 1000 ml BAG 1,000 ML IV SCH ×4 (01:07→22:13)
[2022-01-01] MEDS: ZOSYN 3.375 GM Q8H per EXTENDED INFUSION IV SCH ×3 (01:08→17:39)
[2022-01-01] MEDS: guaiFENesin 100 mg/5 ml LIQ unit dose cup PO SCH ×3 (06:33→22:53)
[2022-01-01 06:46] LABS: Calcium 8.1 mg/dL (8.6-10.3); Potassium 3.7 mmol/L (3.5-5.0); eGFR CKD-EPI 115.7 (>60)
[2022-01-01] MEDS: Mometasone/Formoter 100/5 MDI INH SCH ×2 (06:51→18:47)
[2022-01-01] MEDS ORDERED: NS 0.45% 1000 ml BAG 1,000 ML IV SCH (09:00)
[2022-01-01] MEDS: Lactulose 30 ml UDC PO SCH ×4 (10:26→21:24)
[2022-01-01] MEDS: Fluticasone NASAL SPRAY 50MCG 16 gm SPRAY BTL BOTH NARES SCH (10:26)
[2022-01-01] MEDS: CloBAZam 10 mg TAB (NF) PO SCH ×2 (10:26→21:25)
[2022-01-01] MEDS: Vitamin THERAPEUTIC TAB PO SCH (10:27)
[2022-01-01] MEDS: Lactulose 300 ML for PR 200 GM/300 ML BTL PR SCH ×4 (13:06→23:38)
[2022-01-01] MEDS: Enoxaparin 40 MG/0.4 ML SYR SUBCUT SCH (15:23)
[2022-01-01] MEDS: Nystatin TOP POWDER 15 GM BTL TOPICAL SCH ×2 (16:47→22:20)
[2022-01-01] MEDS: Senna TAB 8.6 mg TAB PO SCH (21:26)
[2022-01-02] MEDS: ZOSYN 3.375 GM Q8H per EXTENDED INFUSION IV SCH ×3 (02:03→18:11)
[2022-01-02] MEDS: NS 0.45% 1000 ml BAG 1,000 ML IV SCH (05:39)
[2022-01-02 06:12] LABS: ABS Basophils 0.1 10^3/ul (0-0.2); ABS Eosinophils 0.1 10^3/ul (0-0.6); ABS Lymphocytes 2.3 10^3/ul (1.0-4.8); ABS Monocytes 0.7 10^3/ul (0-0.8); ABS Neutrophils 5.3 10^3/ul (1.5-7.7); Eosinophil % 0.8 %; Hematocrit 38 % (42-52); Hemoglobin 12.2 g/dL (14.0-18.0); Lymphocyte % 26.9 %; Mean Corpuscular HGB Conc 32 g/dL (31-36); Mean Corpuscular Hemoglobin 30 pg (27-31); Mean Corpuscular Volume 93 fL (80-94); Mean Platelet Volume 9.3 fL (7.4-10.4); Nucleated Red Blood Cells % 0.2; Platelet Count 220 10^3/uL (150-450); Red Blood Count 4.05 10^6 /uL (4.18-5.48); Red Cell Distribution Width 14 % (10-15); White Blood Count 8.4 10^3/uL (3.5-10.8)
[2022-01-02] MEDS: Mometasone/Formoter 100/5 MDI INH SCH ×2 (06:18→19:18)
[2022-01-02 06:45] LABS: Potassium 3.3 mmol/L (3.5-5.0); eGFR CKD-EPI 120.4 (>60)
[2022-01-02] MEDS: Lactulose 30 ml UDC PO SCH ×4 (09:47→21:45)
[2022-01-02] MEDS: guaiFENesin 100 mg/5 ml LIQ unit dose cup PO SCH ×3 (09:47→21:45)
[2022-01-02] MEDS: CloBAZam 10 mg TAB (NF) PO SCH ×2 (09:48→21:40)
[2022-01-02] MEDS: Vitamin THERAPEUTIC TAB PO SCH (09:48)
[2022-01-02] MEDS: Fluticasone NASAL SPRAY 50MCG 16 gm SPRAY BTL BOTH NARES SCH (09:49)
[2022-01-02] MEDS: Nystatin TOP POWDER 15 GM BTL TOPICAL SCH ×3 (09:50→21:59)
[2022-01-02] MEDS: Lactulose 300 ML for PR 200 GM/300 ML BTL PR SCH (09:51)
[2022-01-02] MEDS ORDERED: Potassium Chlor 20 meq TAB.ER PO ONE (10:32)
[2022-01-02] MEDS: Enoxaparin 40 MG/0.4 ML SYR SUBCUT SCH (14:57)
[2022-01-02] MEDS: Senna TAB 8.6 mg TAB PO SCH (21:58)
[2022-01-02 23:30] LABS: Calcium 8.5 mg/dL (8.6-10.3); Magnesium 1.9 mg/dL (1.9-2.7); Phosphorus 2.1 mg/dL (2.5-5.0); Potassium 3.8 mmol/L (3.5-5.0); eGFR CKD-EPI 110.1 (>60)
[2022-01-03] MEDS ORDERED: Magnesium Sulfate IV 3 GM in NS 0.9% 100 ml BAG 100 ML IVPB ONE (00:27)
[2022-01-03] MEDS ORDERED: Potassium Phosphate IV 15 MMOLE in NS 0.9% 250 ml 250 ML IVPB ONE (00:27)
[2022-01-03] MEDS: ZOSYN 3.375 GM Q8H per EXTENDED INFUSION IV SCH ×2 (03:10→11:11)
[2022-01-03 05:40] LABS: Calcium 8.2 mg/dL (8.6-10.3); Magnesium 1.9 mg/dL (1.9-2.7); Potassium 3.6 mmol/L (3.5-5.0); eGFR CKD-EPI 123.6 (>60)
[2022-01-03] MEDS: guaiFENesin 100 mg/5 ml LIQ unit dose cup PO SCH ×2 (06:09→13:46)
[2022-01-03] MEDS: Mometasone/Formoter 100/5 MDI INH SCH ×2 (07:44→19:07)
[2022-01-03] MEDS: Lactulose 30 ml UDC PO SCH ×4 (09:17→21:06)
[2022-01-03] MEDS: CloBAZam 10 mg TAB (NF) PO SCH ×2 (09:18→21:04)
[2022-01-03] MEDS: Nystatin TOP POWDER 15 GM BTL TOPICAL SCH ×3 (10:01→21:07)
[2022-01-03] MEDS: Vitamin THERAPEUTIC TAB PO SCH (10:01)
[2022-01-03] MEDS: Fluticasone NASAL SPRAY 50MCG 16 gm SPRAY BTL BOTH NARES SCH (13:47)
[2022-01-03] MEDS: Enoxaparin 40 MG/0.4 ML SYR SUBCUT SCH (13:49)
[2022-01-03] MEDS: Senna TAB 8.6 mg TAB PO SCH (21:05)
[2022-01-04] MEDS: guaiFENesin 100 mg/5 ml LIQ unit dose cup PO SCH ×4 (01:06→22:20)
[2022-01-04] MEDS: Mometasone/Formoter 100/5 MDI INH SCH ×2 (08:43→18:58)
[2022-01-04] MEDS: Lactulose 30 ml UDC PO SCH ×4 (10:13→22:21)
[2022-01-04] MEDS: Fluticasone NASAL SPRAY 50MCG 16 gm SPRAY BTL BOTH NARES SCH (10:22)
[2022-01-04] MEDS: CloBAZam 10 mg TAB (NF) PO SCH ×2 (10:23→22:02)
[2022-01-04] MEDS: Nystatin TOP POWDER 15 GM BTL TOPICAL SCH ×3 (10:29→22:01)
[2022-01-04] MEDS: Vitamin THERAPEUTIC TAB PO SCH (10:32)
[2022-01-04] MEDS: Enoxaparin 40 MG/0.4 ML SYR SUBCUT SCH (13:50)
[2022-01-04] MEDS: Senna TAB 8.6 mg TAB PO SCH (22:02)
[2022-01-05] MEDS: Mometasone/Formoter 100/5 MDI INH SCH (07:35)
[2022-01-05] MEDS: Albuterol HFA INHALER 8 gm MDI INH PRN (07:37)
[2022-01-05] MEDS: guaiFENesin 100 mg/5 ml LIQ unit dose cup PO SCH ×2 (10:19→14:00)
[2022-01-05] MEDS: Fluticasone NASAL SPRAY 50MCG 16 gm SPRAY BTL BOTH NARES SCH (10:20)
[2022-01-05] MEDS: CloBAZam 10 mg TAB (NF) PO SCH (10:20)
[2022-01-05] MEDS: Vitamin THERAPEUTIC TAB PO SCH (10:20)
[2022-01-05] MEDS: Nystatin TOP POWDER 15 GM BTL TOPICAL SCH ×2 (10:21→14:00)
[2022-01-05] MEDS: Lactulose 30 ml UDC PO SCH ×2 (10:21→13:59)
[2022-01-05 11:22] VITALS: BP 100/62
[2022-01-05] MEDS: Enoxaparin 40 MG/0.4 ML SYR SUBCUT SCH (14:00)
== END 2022-01-05 13:19 | disposition swing bed (61) | DRG 177 ==
LOC: INTOOBSV 12:42 → SUATTDRO 12:42 → MED 12:42 → SUATTDRO 12-28 13:47
PROVIDERS: ADMIT Physician Assistant; ATTEND Hospitalist

== ENCOUNTER 2022-02-19 07:48 | Inpatient (IN) ==
[2022-02-19] MEDS ORDERED: Lidocaine PATCH 5% PATCH TRANSDERM PRN (12:00)
[2022-02-19] MEDS ORDERED: Magnesium Hydroxide LIQ 30 ML UDC PO PRN (12:01)
[2022-02-19] MEDS: Nystatin TOP POWDER 15 GM BTL TOPICAL SCH ×2 (12:35→20:07)
[2022-02-19] MEDS: CloBAZam 10 mg TAB (NF) PO SCH ×2 (12:35→20:05)
[2022-02-19] MEDS: Enoxaparin 40 MG/0.4 ML SYR SUBCUT SCH (12:35)
[2022-02-19] MEDS: Amoxicillin/Clavul 500/125 TAB (Augmentin 500 mg tab) PO SCH ×2 (12:36→20:06)
[2022-02-19] MEDS: Lactulose 30 ml UDC PO SCH ×2 (12:36→20:07)
[2022-02-19] MEDS: Senna TAB 8.6 mg TAB PO SCH (20:07)
[2022-02-20] MEDS ORDERED: Levothyroxine 100 MCG/5 ML VIAL IV SCH (06:00)
[2022-02-20] MEDS: Amoxicillin/Clavul 500/125 TAB (Augmentin 500 mg tab) PO SCH ×2 (09:13→21:06)
[2022-02-20] MEDS: Vitamin THERAPEUTIC TAB PO SCH (09:14)
[2022-02-20] MEDS: CloBAZam 10 mg TAB (NF) PO SCH ×2 (09:14→21:06)
[2022-02-20] MEDS: Enoxaparin 40 MG/0.4 ML SYR SUBCUT SCH (09:15)
[2022-02-20] MEDS: Nystatin TOP POWDER 15 GM BTL TOPICAL SCH ×2 (09:15→21:09)
[2022-02-20] MEDS: Lactulose 30 ml UDC PO SCH ×2 (09:16→20:57)
[2022-02-20] MEDS: Fluticasone NASAL SPRAY 50MCG 16 gm SPRAY BTL BOTH NARES SCH (11:34)
[2022-02-20] MEDS: Senna TAB 8.6 mg TAB PO SCH (20:57)
[2022-02-21] MEDS: Fluticasone NASAL SPRAY 50MCG 16 gm SPRAY BTL BOTH NARES SCH (08:54)
[2022-02-21] MEDS: Lactulose 30 ml UDC PO SCH ×2 (08:57→21:20)
[2022-02-21] MEDS: Enoxaparin 40 MG/0.4 ML SYR SUBCUT SCH (08:57)
[2022-02-21] MEDS: CloBAZam 10 mg TAB (NF) PO SCH ×2 (08:59→21:19)
[2022-02-21] MEDS: Nystatin TOP POWDER 15 GM BTL TOPICAL SCH ×2 (09:00→21:20)
[2022-02-21] MEDS: Amoxicillin/Clavul 500/125 TAB (Augmentin 500 mg tab) PO SCH ×2 (09:00→21:19)
[2022-02-21] MEDS: Vitamin THERAPEUTIC TAB PO SCH (09:00)
[2022-02-21] MEDS: Senna TAB 8.6 mg TAB PO SCH (21:20)
[2022-02-22] MEDS: Enoxaparin 40 MG/0.4 ML SYR SUBCUT SCH (08:12)
[2022-02-22] MEDS: Fluticasone NASAL SPRAY 50MCG 16 gm SPRAY BTL BOTH NARES SCH (08:12)
[2022-02-22] MEDS: CloBAZam 10 mg TAB (NF) PO SCH ×2 (08:13→20:57)
[2022-02-22] MEDS: Amoxicillin/Clavul 500/125 TAB (Augmentin 500 mg tab) PO SCH ×2 (08:13→20:57)
[2022-02-22] MEDS: Vitamin THERAPEUTIC TAB PO SCH (08:13)
[2022-02-22] MEDS: Nystatin TOP POWDER 15 GM BTL TOPICAL SCH ×2 (08:39→21:00)
[2022-02-22] MEDS: Lactulose 30 ml UDC PO SCH ×2 (09:13→21:00)
[2022-02-22] MEDS: Senna TAB 8.6 mg TAB PO SCH (21:00)
[2022-02-23] MEDS: Amoxicillin/Clavul 500/125 TAB (Augmentin 500 mg tab) PO SCH ×2 (09:25→20:47)
[2022-02-23] MEDS: Vitamin THERAPEUTIC TAB PO SCH (09:25)
[2022-02-23] MEDS: Fluticasone NASAL SPRAY 50MCG 16 gm SPRAY BTL BOTH NARES SCH (09:25)
[2022-02-23] MEDS: Lactulose 30 ml UDC PO SCH ×2 (09:25→20:46)
[2022-02-23] MEDS: CloBAZam 10 mg TAB (NF) PO SCH ×2 (09:26→20:47)
[2022-02-23] MEDS: Enoxaparin 40 MG/0.4 ML SYR SUBCUT SCH (09:26)
[2022-02-23] MEDS: Nystatin TOP POWDER 15 GM BTL TOPICAL SCH ×2 (09:26→20:47)
[2022-02-23] MEDS: Senna TAB 8.6 mg TAB PO SCH (20:46)
[2022-02-24] MEDS: Lactulose 30 ml UDC PO SCH ×2 (09:04→20:11)
[2022-02-24] MEDS: Vitamin THERAPEUTIC TAB PO SCH (09:05)
[2022-02-24] MEDS: CloBAZam 10 mg TAB (NF) PO SCH ×2 (09:05→20:10)
[2022-02-24] MEDS: Fluticasone NASAL SPRAY 50MCG 16 gm SPRAY BTL BOTH NARES SCH (09:06)
[2022-02-24] MEDS: Nystatin TOP POWDER 15 GM BTL TOPICAL SCH ×2 (09:06→20:14)
[2022-02-24] MEDS: Enoxaparin 40 MG/0.4 ML SYR SUBCUT SCH (09:06)
[2022-02-24] MEDS: Senna TAB 8.6 mg TAB PO SCH (20:11)
[2022-02-25] MEDS: CloBAZam 10 mg TAB (NF) PO SCH ×2 (10:16→19:48)
[2022-02-25] MEDS: Fluticasone NASAL SPRAY 50MCG 16 gm SPRAY BTL BOTH NARES SCH (10:17)
[2022-02-25] MEDS: Vitamin THERAPEUTIC TAB PO SCH (10:17)
[2022-02-25] MEDS: Enoxaparin 40 MG/0.4 ML SYR SUBCUT SCH (10:17)
[2022-02-25] MEDS: Lactulose 30 ml UDC PO SCH ×2 (10:18→20:14)
[2022-02-25] MEDS: Nystatin TOP POWDER 15 GM BTL TOPICAL SCH ×2 (10:18→19:54)
[2022-02-25] MEDS: Senna TAB 8.6 mg TAB PO SCH (19:50)
[2022-02-26] MEDS: Lactulose 30 ml UDC PO SCH ×2 (09:31→20:04)
[2022-02-26] MEDS: Enoxaparin 40 MG/0.4 ML SYR SUBCUT SCH (09:33)
[2022-02-26] MEDS: Fluticasone NASAL SPRAY 50MCG 16 gm SPRAY BTL BOTH NARES SCH (09:33)
[2022-02-26] MEDS: CloBAZam 10 mg TAB (NF) PO SCH ×2 (09:34→19:57)
[2022-02-26] MEDS: Vitamin THERAPEUTIC TAB PO SCH (09:34)
[2022-02-26] MEDS: Nystatin TOP POWDER 15 GM BTL TOPICAL SCH ×2 (09:45→22:00)
[2022-02-26] MEDS: Albuterol HFA INHALER 8 gm MDI INH PRN (09:49)
[2022-02-26] MEDS: Senna TAB 8.6 mg TAB PO SCH (20:04)
[2022-02-27] MEDS: Fluticasone NASAL SPRAY 50MCG 16 gm SPRAY BTL BOTH NARES SCH (08:55)
[2022-02-27] MEDS: Albuterol HFA INHALER 8 gm MDI INH PRN (08:57)
[2022-02-27] MEDS: Lactulose 30 ml UDC PO SCH ×2 (08:58→19:43)
[2022-02-27] MEDS: Nystatin TOP POWDER 15 GM BTL TOPICAL SCH ×2 (08:59→19:43)
[2022-02-27] MEDS: Enoxaparin 40 MG/0.4 ML SYR SUBCUT SCH (08:59)
[2022-02-27] MEDS: Vitamin THERAPEUTIC TAB PO SCH (08:59)
[2022-02-27] MEDS: CloBAZam 10 mg TAB (NF) PO SCH ×2 (09:00→19:36)
[2022-02-27] MEDS: Senna TAB 8.6 mg TAB PO SCH (19:36)
[2022-02-28] MEDS: Lactulose 30 ml UDC PO SCH ×3 (08:42→20:18)
[2022-02-28] MEDS: Vitamin THERAPEUTIC TAB PO SCH (08:42)
[2022-02-28] MEDS: CloBAZam 10 mg TAB (NF) PO SCH ×2 (08:43→20:18)
[2022-02-28] MEDS: Nystatin TOP POWDER 15 GM BTL TOPICAL SCH ×2 (08:43→20:18)
[2022-02-28] MEDS: Fluticasone NASAL SPRAY 50MCG 16 gm SPRAY BTL BOTH NARES SCH (08:43)
[2022-02-28] MEDS: Enoxaparin 40 MG/0.4 ML SYR SUBCUT SCH (08:43)
[2022-02-28] MEDS: Albuterol HFA INHALER 8 gm MDI INH PRN (12:16)
[2022-02-28] MEDS: Senna TAB 8.6 mg TAB PO SCH (20:18)
[2022-03-01] MEDS: CloBAZam 10 mg TAB (NF) PO SCH ×2 (07:49→21:03)
[2022-03-01] MEDS: Vitamin THERAPEUTIC TAB PO SCH (07:49)
[2022-03-01] MEDS: Enoxaparin 40 MG/0.4 ML SYR SUBCUT SCH (07:56)
[2022-03-01] MEDS: Fluticasone NASAL SPRAY 50MCG 16 gm SPRAY BTL BOTH NARES SCH (07:57)
[2022-03-01] MEDS: Lactulose 30 ml UDC PO SCH ×2 (07:58→21:04)
[2022-03-01] MEDS: Nystatin TOP POWDER 15 GM BTL TOPICAL SCH ×2 (07:58→21:06)
[2022-03-01] MEDS: Senna TAB 8.6 mg TAB PO SCH (21:03)
[2022-03-02] MEDS: Lactulose 30 ml UDC PO SCH ×2 (09:44→20:09)
[2022-03-02] MEDS: Enoxaparin 40 MG/0.4 ML SYR SUBCUT SCH (09:44)
[2022-03-02] MEDS: Nystatin TOP POWDER 15 GM BTL TOPICAL SCH ×2 (09:44→20:11)
[2022-03-02] MEDS: Fluticasone NASAL SPRAY 50MCG 16 gm SPRAY BTL BOTH NARES SCH (09:44)
[2022-03-02] MEDS: CloBAZam 10 mg TAB (NF) PO SCH ×2 (09:46→20:07)
[2022-03-02] MEDS: Vitamin THERAPEUTIC TAB PO SCH (09:47)
[2022-03-02] MEDS: Albuterol HFA INHALER 8 gm MDI INH PRN (09:53)
[2022-03-02] MEDS: Senna TAB 8.6 mg TAB PO SCH (20:07)
[2022-03-03] MEDS: Fluticasone NASAL SPRAY 50MCG 16 gm SPRAY BTL BOTH NARES SCH (07:58)
[2022-03-03] MEDS: Enoxaparin 40 MG/0.4 ML SYR SUBCUT SCH (07:58)
[2022-03-03] MEDS: Lactulose 30 ml UDC PO SCH ×2 (07:58→21:09)
[2022-03-03] MEDS: Nystatin TOP POWDER 15 GM BTL TOPICAL SCH ×2 (07:59→21:08)
[2022-03-03] MEDS: CloBAZam 10 mg TAB (NF) PO SCH ×2 (08:00→21:07)
[2022-03-03] MEDS: Vitamin THERAPEUTIC TAB PO SCH (08:01)
[2022-03-03] MEDS: Senna TAB 8.6 mg TAB PO SCH (21:07)
[2022-03-04] MEDS: Vitamin THERAPEUTIC TAB PO SCH (09:48)
[2022-03-04] MEDS: Lactulose 30 ml UDC PO SCH ×2 (09:48→20:56)
[2022-03-04] MEDS: CloBAZam 10 mg TAB (NF) PO SCH ×2 (09:49→20:52)
[2022-03-04] MEDS: Enoxaparin 40 MG/0.4 ML SYR SUBCUT SCH (09:58)
[2022-03-04] MEDS: Fluticasone NASAL SPRAY 50MCG 16 gm SPRAY BTL BOTH NARES SCH (09:59)
[2022-03-04] MEDS: Nystatin TOP POWDER 15 GM BTL TOPICAL SCH (09:59)
[2022-03-04] MEDS: Senna TAB 8.6 mg TAB PO SCH (20:53)
[2022-03-04] MEDS: Albuterol HFA INHALER 8 gm MDI INH PRN (21:05)
[2022-03-05 08:02] LABS: ABS Eosinophils 0.2 10^3/ul (0-0.6); ABS Lymphocytes 2.2 10^3/ul (1.0-4.8); ABS Monocytes 0.4 10^3/ul (0-0.8); ABS Neutrophils 3.7 10^3/ul (1.5-7.7); Eosinophil % 3.7 %; Hematocrit 41 % (42-52); Hemoglobin 13.7 g/dL (14.0-18.0); Lymphocyte % 33.1 %; Mean Corpuscular HGB Conc 34 g/dL (31-36); Mean Corpuscular Hemoglobin 31 pg (27-31); Mean Corpuscular Volume 93 fL (80-94); Mean Platelet Volume 7.8 fL (7.4-10.4); Nucleated Red Blood Cells % 0.1; Platelet Count 345 10^3/uL (150-450); Red Blood Count 4.38 10^6 /uL (4.18-5.48); Red Cell Distribution Width 15 % (10-15); White Blood Count 6.5 10^3/uL (3.5-10.8)
[2022-03-05] MEDS: Fluticasone NASAL SPRAY 50MCG 16 gm SPRAY BTL BOTH NARES SCH (08:42)
[2022-03-05] MEDS: Vitamin THERAPEUTIC TAB PO SCH (08:42)
[2022-03-05] MEDS: Lactulose 30 ml UDC PO SCH ×2 (08:42→21:00)
[2022-03-05] MEDS: Enoxaparin 40 MG/0.4 ML SYR SUBCUT SCH (08:42)
[2022-03-05] MEDS: CloBAZam 10 mg TAB (NF) PO SCH ×2 (08:43→20:59)
[2022-03-05 08:46] LABS: Albumin 3.5 g/dL (3.2-5.2); Calcium 9.2 mg/dL (8.6-10.3); Creatinine, Serum 0.61 mg/dL (0.67-1.17); Globulin 3.4 g/dL (2-4); Potassium 4.5 mmol/L (3.5-5.0); Total Bilirubin 0.5 mg/dL (0.2-1.0); Total Protein 6.9 g/dL (6.4-8.9); eGFR CKD-EPI 112.7 (>60)
[2022-03-05] MEDS: Senna TAB 8.6 mg TAB PO SCH (21:00)
[2022-03-06] MEDS: Vitamin THERAPEUTIC TAB PO SCH (07:44)
[2022-03-06] MEDS: CloBAZam 10 mg TAB (NF) PO SCH ×2 (07:44→21:14)
[2022-03-06] MEDS: Fluticasone NASAL SPRAY 50MCG 16 gm SPRAY BTL BOTH NARES SCH (07:49)
[2022-03-06] MEDS: Enoxaparin 40 MG/0.4 ML SYR SUBCUT SCH (07:50)
[2022-03-06] MEDS: Lactulose 30 ml UDC PO SCH ×2 (07:54→21:14)
[2022-03-06] MEDS: Senna TAB 8.6 mg TAB PO SCH (21:14)
[2022-03-07] MEDS: Fluticasone NASAL SPRAY 50MCG 16 gm SPRAY BTL BOTH NARES SCH (08:23)
[2022-03-07] MEDS: Lactulose 30 ml UDC PO SCH ×2 (08:23→21:16)
[2022-03-07] MEDS: CloBAZam 10 mg TAB (NF) PO SCH ×2 (08:24→21:12)
[2022-03-07] MEDS: Enoxaparin 40 MG/0.4 ML SYR SUBCUT SCH (08:24)
[2022-03-07] MEDS: Vitamin THERAPEUTIC TAB PO SCH (08:25)
[2022-03-07] MEDS: Senna TAB 8.6 mg TAB PO SCH (21:13)
[2022-03-08] MEDS: Fluticasone NASAL SPRAY 50MCG 16 gm SPRAY BTL BOTH NARES SCH (08:54)
[2022-03-08] MEDS: Enoxaparin 40 MG/0.4 ML SYR SUBCUT SCH (08:54)
[2022-03-08] MEDS: Lactulose 30 ml UDC PO SCH ×2 (08:54→20:51)
[2022-03-08] MEDS: Vitamin THERAPEUTIC TAB PO SCH (08:55)
[2022-03-08] MEDS: CloBAZam 10 mg TAB (NF) PO SCH ×2 (08:56→20:51)
[2022-03-08] MEDS: Senna TAB 8.6 mg TAB PO SCH (20:51)
[2022-03-09] MEDS: Enoxaparin 40 MG/0.4 ML SYR SUBCUT SCH (09:54)
[2022-03-09] MEDS: Lactulose 30 ml UDC PO SCH ×2 (09:54→20:55)
[2022-03-09] MEDS: CloBAZam 10 mg TAB (NF) PO SCH ×2 (09:55→20:54)
[2022-03-09] MEDS: Fluticasone NASAL SPRAY 50MCG 16 gm SPRAY BTL BOTH NARES SCH (09:56)
[2022-03-09] MEDS: Vitamin THERAPEUTIC TAB PO SCH (09:56)
[2022-03-09] MEDS: Senna TAB 8.6 mg TAB PO SCH (20:55)
[2022-03-10] MEDS: CloBAZam 10 mg TAB (NF) PO SCH ×2 (07:48→21:11)
[2022-03-10] MEDS: Vitamin THERAPEUTIC TAB PO SCH (07:49)
[2022-03-10] MEDS: Fluticasone NASAL SPRAY 50MCG 16 gm SPRAY BTL BOTH NARES SCH (07:52)
[2022-03-10] MEDS: Lactulose 30 ml UDC PO SCH ×2 (07:53→21:10)
[2022-03-10] MEDS: Enoxaparin 40 MG/0.4 ML SYR SUBCUT SCH (07:54)
[2022-03-10] MEDS: Senna TAB 8.6 mg TAB PO SCH (21:11)
[2022-03-11] MEDS: Lactulose 30 ml UDC PO SCH ×2 (09:12→21:14)
[2022-03-11] MEDS: Enoxaparin 40 MG/0.4 ML SYR SUBCUT SCH (09:12)
[2022-03-11] MEDS: Vitamin THERAPEUTIC TAB PO SCH (09:13)
[2022-03-11] MEDS: Fluticasone NASAL SPRAY 50MCG 16 gm SPRAY BTL BOTH NARES SCH (09:13)
[2022-03-11] MEDS: CloBAZam 10 mg TAB (NF) PO SCH ×2 (09:13→21:08)
[2022-03-11] MEDS: Senna TAB 8.6 mg TAB PO SCH (21:11)
[2022-03-12] MEDS: Lactulose 30 ml UDC PO SCH ×2 (09:22→20:24)
[2022-03-12] MEDS: CloBAZam 10 mg TAB (NF) PO SCH ×2 (09:23→20:19)
[2022-03-12] MEDS: Vitamin THERAPEUTIC TAB PO SCH (09:23)
[2022-03-12] MEDS: Fluticasone NASAL SPRAY 50MCG 16 gm SPRAY BTL BOTH NARES SCH (09:25)
[2022-03-12] MEDS: Enoxaparin 40 MG/0.4 ML SYR SUBCUT SCH (09:25)
[2022-03-12] MEDS: Albuterol HFA INHALER 8 gm MDI INH PRN (20:15)
[2022-03-12] MEDS: Senna TAB 8.6 mg TAB PO SCH (20:20)
[2022-03-13] MEDS: Vitamin THERAPEUTIC TAB PO SCH (09:45)
[2022-03-13] MEDS: CloBAZam 10 mg TAB (NF) PO SCH ×2 (09:45→20:13)
[2022-03-13] MEDS: Enoxaparin 40 MG/0.4 ML SYR SUBCUT SCH (09:46)
[2022-03-13] MEDS: Fluticasone NASAL SPRAY 50MCG 16 gm SPRAY BTL BOTH NARES SCH (09:46)
[2022-03-13] MEDS: Lactulose 30 ml UDC PO SCH ×2 (09:46→20:14)
[2022-03-13] MEDS: Senna TAB 8.6 mg TAB PO SCH (20:13)
[2022-03-14] MEDS: Enoxaparin 40 MG/0.4 ML SYR SUBCUT SCH (07:51)
[2022-03-14] MEDS: Fluticasone NASAL SPRAY 50MCG 16 gm SPRAY BTL BOTH NARES SCH (07:51)
[2022-03-14] MEDS: Lactulose 30 ml UDC PO SCH ×2 (07:51→20:56)
[2022-03-14] MEDS: CloBAZam 10 mg TAB (NF) PO SCH ×2 (07:52→20:58)
[2022-03-14] MEDS: Vitamin THERAPEUTIC TAB PO SCH (07:52)
[2022-03-14] MEDS: Senna TAB 8.6 mg TAB PO SCH (20:58)
[2022-03-15] MEDS: Vitamin THERAPEUTIC TAB PO SCH (07:34)
[2022-03-15] MEDS: CloBAZam 10 mg TAB (NF) PO SCH ×2 (07:34→20:23)
[2022-03-15] MEDS: Fluticasone NASAL SPRAY 50MCG 16 gm SPRAY BTL BOTH NARES SCH (07:35)
[2022-03-15] MEDS: Enoxaparin 40 MG/0.4 ML SYR SUBCUT SCH (07:38)
[2022-03-15] MEDS: Lactulose 30 ml UDC PO SCH ×2 (07:40→20:26)
[2022-03-15] MEDS: Senna TAB 8.6 mg TAB PO SCH (20:23)
[2022-03-16] MEDS: Lactulose 30 ml UDC PO SCH ×2 (09:20→20:46)
[2022-03-16] MEDS: Enoxaparin 40 MG/0.4 ML SYR SUBCUT SCH (09:21)
[2022-03-16] MEDS: CloBAZam 10 mg TAB (NF) PO SCH ×2 (09:22→20:46)
[2022-03-16] MEDS: Fluticasone NASAL SPRAY 50MCG 16 gm SPRAY BTL BOTH NARES SCH (09:22)
[2022-03-16] MEDS: Vitamin THERAPEUTIC TAB PO SCH (09:23)
[2022-03-16] MEDS: Senna TAB 8.6 mg TAB PO SCH (20:46)
[2022-03-17] MEDS: Lactulose 30 ml UDC PO SCH ×2 (08:39→20:19)
[2022-03-17] MEDS: Fluticasone NASAL SPRAY 50MCG 16 gm SPRAY BTL BOTH NARES SCH (08:39)
[2022-03-17] MEDS: Enoxaparin 40 MG/0.4 ML SYR SUBCUT SCH (08:40)
[2022-03-17] MEDS: CloBAZam 10 mg TAB (NF) PO SCH ×2 (08:42→20:20)
[2022-03-17] MEDS: Vitamin THERAPEUTIC TAB PO SCH (08:43)
[2022-03-17] MEDS: Senna TAB 8.6 mg TAB PO SCH (20:20)
[2022-03-18] MEDS: Vitamin THERAPEUTIC TAB PO SCH (09:37)
[2022-03-18] MEDS: Lactulose 30 ml UDC PO SCH ×2 (09:37→20:10)
[2022-03-18] MEDS: Enoxaparin 40 MG/0.4 ML SYR SUBCUT SCH (09:38)
[2022-03-18] MEDS: Fluticasone NASAL SPRAY 50MCG 16 gm SPRAY BTL BOTH NARES SCH (09:39)
[2022-03-18] MEDS: CloBAZam 10 mg TAB (NF) PO SCH ×2 (09:39→20:08)
[2022-03-18] MEDS: Senna TAB 8.6 mg TAB PO SCH (20:08)
[2022-03-19] MEDS: Lactulose 30 ml UDC PO SCH ×2 (09:19→20:01)
[2022-03-19] MEDS: CloBAZam 10 mg TAB (NF) PO SCH ×2 (09:21→20:02)
[2022-03-19] MEDS: Vitamin THERAPEUTIC TAB PO SCH (09:21)
[2022-03-19] MEDS: Enoxaparin 40 MG/0.4 ML SYR SUBCUT SCH (09:24)
[2022-03-19] MEDS: Fluticasone NASAL SPRAY 50MCG 16 gm SPRAY BTL BOTH NARES SCH (10:54)
[2022-03-19] MEDS: Senna TAB 8.6 mg TAB PO SCH (20:02)
[2022-03-20] MEDS: Lactulose 30 ml UDC PO SCH ×2 (09:23→20:11)
[2022-03-20] MEDS: Enoxaparin 40 MG/0.4 ML SYR SUBCUT SCH (09:23)
[2022-03-20] MEDS: CloBAZam 10 mg TAB (NF) PO SCH ×2 (09:25→20:11)
[2022-03-20] MEDS: Vitamin THERAPEUTIC TAB PO SCH (09:25)
[2022-03-20] MEDS: Fluticasone NASAL SPRAY 50MCG 16 gm SPRAY BTL BOTH NARES SCH (10:44)
[2022-03-20] MEDS: Senna TAB 8.6 mg TAB PO SCH (20:12)
[2022-03-21] MEDS: CloBAZam 10 mg TAB (NF) PO SCH ×2 (08:08→20:23)
[2022-03-21] MEDS: Enoxaparin 40 MG/0.4 ML SYR SUBCUT SCH (08:08)
[2022-03-21] MEDS: Lactulose 30 ml UDC PO SCH ×2 (08:08→20:24)
[2022-03-21] MEDS: Vitamin THERAPEUTIC TAB PO SCH (08:09)
[2022-03-21] MEDS: Fluticasone NASAL SPRAY 50MCG 16 gm SPRAY BTL BOTH NARES SCH (08:09)
[2022-03-21] MEDS: Senna TAB 8.6 mg TAB PO SCH (20:23)
[2022-03-22] MEDS: Enoxaparin 40 MG/0.4 ML SYR SUBCUT SCH (08:50)
[2022-03-22] MEDS: Fluticasone NASAL SPRAY 50MCG 16 gm SPRAY BTL BOTH NARES SCH (08:50)
[2022-03-22] MEDS: Lactulose 30 ml UDC PO SCH ×2 (08:50→20:32)
[2022-03-22] MEDS: Vitamin THERAPEUTIC TAB PO SCH (08:51)
[2022-03-22] MEDS: CloBAZam 10 mg TAB (NF) PO SCH ×2 (08:51→20:23)
[2022-03-22] MEDS: Senna TAB 8.6 mg TAB PO SCH (20:04)
[2022-03-23] MEDS: Lactulose 30 ml UDC PO SCH ×2 (09:27→20:50)
[2022-03-23] MEDS: Fluticasone NASAL SPRAY 50MCG 16 gm SPRAY BTL BOTH NARES SCH (09:27)
[2022-03-23] MEDS: Enoxaparin 40 MG/0.4 ML SYR SUBCUT SCH (09:29)
[2022-03-23] MEDS: CloBAZam 10 mg TAB (NF) PO SCH ×2 (09:30→20:49)
[2022-03-23] MEDS: Vitamin THERAPEUTIC TAB PO SCH (09:30)
[2022-03-23] MEDS: Senna TAB 8.6 mg TAB PO SCH (20:48)
[2022-03-24] MEDS: Lactulose 30 ml UDC PO SCH ×2 (07:51→20:50)
[2022-03-24] MEDS: CloBAZam 10 mg TAB (NF) PO SCH ×2 (07:52→20:49)
[2022-03-24] MEDS: Vitamin THERAPEUTIC TAB PO SCH (07:52)
[2022-03-24] MEDS: Enoxaparin 40 MG/0.4 ML SYR SUBCUT SCH (07:52)
[2022-03-24] MEDS: Fluticasone NASAL SPRAY 50MCG 16 gm SPRAY BTL BOTH NARES SCH (07:52)
[2022-03-24] MEDS: Senna TAB 8.6 mg TAB PO SCH (20:48)
[2022-03-25] MEDS: Vitamin THERAPEUTIC TAB PO SCH (09:42)
[2022-03-25] MEDS: Lactulose 30 ml UDC PO SCH ×2 (09:42→20:23)
[2022-03-25] MEDS: CloBAZam 10 mg TAB (NF) PO SCH ×2 (09:44→20:26)
[2022-03-25] MEDS: Fluticasone NASAL SPRAY 50MCG 16 gm SPRAY BTL BOTH NARES SCH (09:45)
[2022-03-25] MEDS: Enoxaparin 40 MG/0.4 ML SYR SUBCUT SCH (09:45)
[2022-03-25] MEDS: Senna TAB 8.6 mg TAB PO SCH (20:24)
[2022-03-26] MEDS: Enoxaparin 40 MG/0.4 ML SYR SUBCUT SCH (07:53)
[2022-03-26] MEDS: Fluticasone NASAL SPRAY 50MCG 16 gm SPRAY BTL BOTH NARES SCH (07:53)
[2022-03-26] MEDS: Lactulose 30 ml UDC PO SCH ×2 (07:55→20:46)
[2022-03-26] MEDS: Vitamin THERAPEUTIC TAB PO SCH (07:57)
[2022-03-26] MEDS: CloBAZam 10 mg TAB (NF) PO SCH ×2 (08:05→20:43)
[2022-03-26] MEDS: Senna TAB 8.6 mg TAB PO SCH (20:43)
[2022-03-27] MEDS: Enoxaparin 40 MG/0.4 ML SYR SUBCUT SCH (08:12)
[2022-03-27] MEDS: Fluticasone NASAL SPRAY 50MCG 16 gm SPRAY BTL BOTH NARES SCH (08:13)
[2022-03-27] MEDS: CloBAZam 10 mg TAB (NF) PO SCH ×2 (08:14→20:52)
[2022-03-27] MEDS: Vitamin THERAPEUTIC TAB PO SCH (08:14)
[2022-03-27] MEDS: Lactulose 30 ml UDC PO SCH ×2 (08:17→20:54)
[2022-03-27] MEDS: Senna TAB 8.6 mg TAB PO SCH (20:52)
[2022-03-28] MEDS: CloBAZam 10 mg TAB (NF) PO SCH ×2 (09:01→21:02)
[2022-03-28] MEDS: Vitamin THERAPEUTIC TAB PO SCH (09:01)
[2022-03-28] MEDS: Lactulose 30 ml UDC PO SCH ×2 (09:02→21:03)
[2022-03-28] MEDS: Fluticasone NASAL SPRAY 50MCG 16 gm SPRAY BTL BOTH NARES SCH (09:03)
[2022-03-28] MEDS: Enoxaparin 40 MG/0.4 ML SYR SUBCUT SCH (09:03)
[2022-03-28] MEDS: Senna TAB 8.6 mg TAB PO SCH (21:02)
[2022-03-29] MEDS: Enoxaparin 40 MG/0.4 ML SYR SUBCUT SCH (08:40)
[2022-03-29] MEDS: CloBAZam 10 mg TAB (NF) PO SCH ×2 (08:40→21:38)
[2022-03-29] MEDS: Vitamin THERAPEUTIC TAB PO SCH (08:40)
[2022-03-29] MEDS: Lactulose 30 ml UDC PO SCH ×2 (08:40→21:38)
[2022-03-29] MEDS: Fluticasone NASAL SPRAY 50MCG 16 gm SPRAY BTL BOTH NARES SCH (08:41)
[2022-03-29] MEDS: Senna TAB 8.6 mg TAB PO SCH (21:38)
[2022-03-30] MEDS: Enoxaparin 40 MG/0.4 ML SYR SUBCUT SCH (09:26)
[2022-03-30] MEDS: Lactulose 30 ml UDC PO SCH ×2 (09:26→20:58)
[2022-03-30] MEDS: Fluticasone NASAL SPRAY 50MCG 16 gm SPRAY BTL BOTH NARES SCH (09:27)
[2022-03-30] MEDS: CloBAZam 10 mg TAB (NF) PO SCH ×2 (09:27→20:57)
[2022-03-30] MEDS: Vitamin THERAPEUTIC TAB PO SCH (09:27)
[2022-03-30] MEDS: Senna TAB 8.6 mg TAB PO SCH (20:57)
[2022-03-31] MEDS: CloBAZam 10 mg TAB (NF) PO SCH ×2 (07:52→20:43)
[2022-03-31] MEDS: Vitamin THERAPEUTIC TAB PO SCH (07:53)
[2022-03-31] MEDS: Lactulose 30 ml UDC PO SCH ×3 (07:53→20:47)
[2022-03-31] MEDS: Enoxaparin 40 MG/0.4 ML SYR SUBCUT SCH (07:53)
[2022-03-31] MEDS: Fluticasone NASAL SPRAY 50MCG 16 gm SPRAY BTL BOTH NARES SCH (07:54)
[2022-03-31] MEDS: Senna TAB 8.6 mg TAB PO SCH (20:43)
[2022-04-01] MEDS: Lactulose 30 ml UDC PO SCH ×2 (07:32→20:51)
[2022-04-01] MEDS: CloBAZam 10 mg TAB (NF) PO SCH ×2 (07:33→20:49)
[2022-04-01] MEDS: Vitamin THERAPEUTIC TAB PO SCH (07:33)
[2022-04-01] MEDS: Enoxaparin 40 MG/0.4 ML SYR SUBCUT SCH (07:36)
[2022-04-01] MEDS: Fluticasone NASAL SPRAY 50MCG 16 gm SPRAY BTL BOTH NARES SCH (07:36)
[2022-04-01] MEDS: Senna TAB 8.6 mg TAB PO SCH (20:49)
[2022-04-02] MEDS: Enoxaparin 40 MG/0.4 ML SYR SUBCUT SCH (07:21)
[2022-04-02] MEDS: Lactulose 30 ml UDC PO SCH ×2 (07:22→20:00)
[2022-04-02] MEDS: Vitamin THERAPEUTIC TAB PO SCH (07:23)
[2022-04-02] MEDS: CloBAZam 10 mg TAB (NF) PO SCH ×2 (07:24→19:57)
[2022-04-02] MEDS: Fluticasone NASAL SPRAY 50MCG 16 gm SPRAY BTL BOTH NARES SCH (07:24)
[2022-04-02] MEDS: Senna TAB 8.6 mg TAB PO SCH (19:58)
[2022-04-03] MEDS: Lactulose 30 ml UDC PO SCH ×2 (09:38→20:15)
[2022-04-03] MEDS: Fluticasone NASAL SPRAY 50MCG 16 gm SPRAY BTL BOTH NARES SCH (09:38)
[2022-04-03] MEDS: Vitamin THERAPEUTIC TAB PO SCH (09:40)
[2022-04-03] MEDS: CloBAZam 10 mg TAB (NF) PO SCH ×2 (09:40→20:14)
[2022-04-03] MEDS: Enoxaparin 40 MG/0.4 ML SYR SUBCUT SCH (09:41)
[2022-04-03] MEDS: Senna TAB 8.6 mg TAB PO SCH (20:15)
[2022-04-04] MEDS: Enoxaparin 40 MG/0.4 ML SYR SUBCUT SCH (07:39)
[2022-04-04] MEDS: CloBAZam 10 mg TAB (NF) PO SCH ×2 (07:40→20:14)
[2022-04-04] MEDS: Fluticasone NASAL SPRAY 50MCG 16 gm SPRAY BTL BOTH NARES SCH (07:41)
[2022-04-04] MEDS: Vitamin THERAPEUTIC TAB PO SCH (07:41)
[2022-04-04] MEDS: Lactulose 30 ml UDC PO SCH ×2 (08:03→20:17)
[2022-04-04] MEDS: Senna TAB 8.6 mg TAB PO SCH (20:15)
[2022-04-05] MEDS: Fluticasone NASAL SPRAY 50MCG 16 gm SPRAY BTL BOTH NARES SCH (07:26)
[2022-04-05] MEDS: CloBAZam 10 mg TAB (NF) PO SCH ×2 (07:26→19:57)
[2022-04-05] MEDS: Vitamin THERAPEUTIC TAB PO SCH (07:27)
[2022-04-05] MEDS: Enoxaparin 40 MG/0.4 ML SYR SUBCUT SCH (07:31)
[2022-04-05] MEDS: Lactulose 30 ml UDC PO SCH ×2 (09:19→20:00)
[2022-04-05] MEDS: Senna TAB 8.6 mg TAB PO SCH (19:56)
[2022-04-06] MEDS: Lactulose 30 ml UDC PO SCH ×2 (09:05→20:14)
[2022-04-06] MEDS: Fluticasone NASAL SPRAY 50MCG 16 gm SPRAY BTL BOTH NARES SCH (09:06)
[2022-04-06] MEDS: Vitamin THERAPEUTIC TAB PO SCH (09:06)
[2022-04-06] MEDS: CloBAZam 10 mg TAB (NF) PO SCH (09:06)
[2022-04-06] MEDS: Enoxaparin 40 MG/0.4 ML SYR SUBCUT SCH (09:06)
[2022-04-06] MEDS: Senna TAB 8.6 mg TAB PO SCH (20:06)
[2022-04-06] MEDS: CLOBAZAM 10 MG PO SCH (20:06)
[2022-04-07] MEDS: Enoxaparin 40 MG/0.4 ML SYR SUBCUT SCH (09:38)
[2022-04-07] MEDS: Lactulose 30 ml UDC PO SCH ×2 (09:38→19:50)
[2022-04-07] MEDS: Vitamin THERAPEUTIC TAB PO SCH (09:38)
[2022-04-07] MEDS: Fluticasone NASAL SPRAY 50MCG 16 gm SPRAY BTL BOTH NARES SCH (09:39)
[2022-04-07] MEDS: CLOBAZAM 10 MG PO SCH ×2 (09:39→19:46)
[2022-04-07] MEDS: Senna TAB 8.6 mg TAB PO SCH (19:46)
[2022-04-08] MEDS: Vitamin THERAPEUTIC TAB PO SCH (10:00)
[2022-04-08] MEDS: CLOBAZAM 10 MG PO SCH ×2 (10:00→19:58)
[2022-04-08] MEDS: Fluticasone NASAL SPRAY 50MCG 16 gm SPRAY BTL BOTH NARES SCH (10:01)
[2022-04-08] MEDS: Lactulose 30 ml UDC PO SCH ×2 (10:01→20:02)
[2022-04-08] MEDS: Enoxaparin 40 MG/0.4 ML SYR SUBCUT SCH (10:02)
[2022-04-08] MEDS ORDERED: Albuterol HFA INHALER 8 gm MDI INH ONE (14:11)
[2022-04-08] MEDS: Albuterol HFA INHALER 8 gm MDI INH PRN (14:46)
[2022-04-08] MEDS: Senna TAB 8.6 mg TAB PO SCH (19:58)
[2022-04-09] MEDS: Lactulose 30 ml UDC PO SCH ×4 (02:08→18:30)
[2022-04-09] MEDS: Vitamin THERAPEUTIC TAB PO SCH (08:55)
[2022-04-09] MEDS: Enoxaparin 40 MG/0.4 ML SYR SUBCUT SCH (08:55)
[2022-04-09] MEDS: Fluticasone NASAL SPRAY 50MCG 16 gm SPRAY BTL BOTH NARES SCH (08:56)
[2022-04-09] MEDS: CLOBAZAM 10 MG PO SCH ×2 (08:56→19:40)
[2022-04-09] MEDS: Senna TAB 8.6 mg TAB PO SCH (19:40)
[2022-04-10] MEDS: Lactulose 30 ml UDC PO SCH ×4 (01:05→19:50)
[2022-04-10] MEDS: CLOBAZAM 10 MG PO SCH ×2 (09:06→19:47)
[2022-04-10] MEDS: Enoxaparin 40 MG/0.4 ML SYR SUBCUT SCH (09:06)
[2022-04-10] MEDS: Vitamin THERAPEUTIC TAB PO SCH (09:06)
[2022-04-10] MEDS: Fluticasone NASAL SPRAY 50MCG 16 gm SPRAY BTL BOTH NARES SCH (09:07)
[2022-04-10] MEDS: Senna TAB 8.6 mg TAB PO SCH (19:47)
[2022-04-11] MEDS: Lactulose 30 ml UDC PO SCH ×6 (02:00→20:53)
[2022-04-11] MEDS: Enoxaparin 40 MG/0.4 ML SYR SUBCUT SCH (09:37)
[2022-04-11] MEDS: Vitamin THERAPEUTIC TAB PO SCH (09:38)
[2022-04-11] MEDS: CLOBAZAM 10 MG PO SCH ×2 (09:38→20:52)
[2022-04-11] MEDS: Fluticasone NASAL SPRAY 50MCG 16 gm SPRAY BTL BOTH NARES SCH (09:38)
[2022-04-11] MEDS: Senna TAB 8.6 mg TAB PO SCH (20:52)
[2022-04-11] MEDS: Albuterol HFA INHALER 8 gm MDI INH PRN (21:02)
[2022-04-12] MEDS: Fluticasone NASAL SPRAY 50MCG 16 gm SPRAY BTL BOTH NARES SCH (09:55)
[2022-04-12] MEDS: CLOBAZAM 10 MG PO SCH ×2 (09:55→20:52)
[2022-04-12] MEDS: Enoxaparin 40 MG/0.4 ML SYR SUBCUT SCH (09:55)
[2022-04-12] MEDS: Vitamin THERAPEUTIC TAB PO SCH (09:55)
[2022-04-12] MEDS: Lactulose 30 ml UDC PO SCH ×3 (09:56→20:51)
[2022-04-12] MEDS: Senna TAB 8.6 mg TAB PO SCH (20:52)
[2022-04-13] MEDS: CLOBAZAM 10 MG PO SCH ×2 (09:09→21:08)
[2022-04-13] MEDS: Enoxaparin 40 MG/0.4 ML SYR SUBCUT SCH (09:09)
[2022-04-13] MEDS: Lactulose 30 ml UDC PO SCH ×2 (09:09→14:05)
[2022-04-13] MEDS: Vitamin THERAPEUTIC TAB PO SCH (09:10)
[2022-04-13] MEDS: Fluticasone NASAL SPRAY 50MCG 16 gm SPRAY BTL BOTH NARES SCH (09:10)
[2022-04-13] MEDS: Senna TAB 8.6 mg TAB PO SCH (21:08)
[2022-04-14] MEDS: Lactulose 30 ml UDC PO SCH ×2 (09:15→14:32)
[2022-04-14] MEDS: Vitamin THERAPEUTIC TAB PO SCH (09:15)
[2022-04-14] MEDS: CLOBAZAM 10 MG PO SCH ×2 (09:16→20:59)
[2022-04-14] MEDS: Enoxaparin 40 MG/0.4 ML SYR SUBCUT SCH (09:16)
[2022-04-14] MEDS: Fluticasone NASAL SPRAY 50MCG 16 gm SPRAY BTL BOTH NARES SCH (09:17)
[2022-04-14] MEDS: Senna TAB 8.6 mg TAB PO SCH (21:00)
[2022-04-15] MEDS: Fluticasone NASAL SPRAY 50MCG 16 gm SPRAY BTL BOTH NARES SCH (08:58)
[2022-04-15] MEDS: Lactulose 30 ml UDC PO SCH ×2 (08:58→14:34)
[2022-04-15] MEDS: Enoxaparin 40 MG/0.4 ML SYR SUBCUT SCH (08:58)
[2022-04-15] MEDS: CLOBAZAM 10 MG PO SCH ×2 (08:59→20:50)
[2022-04-15] MEDS: Vitamin THERAPEUTIC TAB PO SCH (08:59)
[2022-04-15] MEDS: SPIRIVA Respimat (tiotropium) 2.5 mcg/inh Inhaler INH SCH (11:08)
[2022-04-15] MEDS: Senna TAB 8.6 mg TAB PO SCH (20:50)
[2022-04-16] MEDS: SPIRIVA Respimat (tiotropium) 2.5 mcg/inh Inhaler INH SCH (08:00)
[2022-04-16] MEDS: Lactulose 30 ml UDC PO SCH ×2 (09:53→14:49)
[2022-04-16] MEDS: Vitamin THERAPEUTIC TAB PO SCH (09:53)
[2022-04-16] MEDS: CLOBAZAM 10 MG PO SCH ×2 (09:53→21:06)
[2022-04-16] MEDS: Fluticasone NASAL SPRAY 50MCG 16 gm SPRAY BTL BOTH NARES SCH (09:54)
[2022-04-16] MEDS: Enoxaparin 40 MG/0.4 ML SYR SUBCUT SCH (09:56)
[2022-04-16] MEDS: Senna TAB 8.6 mg TAB PO SCH (21:07)
[2022-04-17] MEDS: SPIRIVA Respimat (tiotropium) 2.5 mcg/inh Inhaler INH SCH (08:19)
[2022-04-17] MEDS: Lactulose 30 ml UDC PO SCH ×2 (10:04→14:05)
[2022-04-17] MEDS: Enoxaparin 40 MG/0.4 ML SYR SUBCUT SCH (10:05)
[2022-04-17] MEDS: Fluticasone NASAL SPRAY 50MCG 16 gm SPRAY BTL BOTH NARES SCH (10:06)
[2022-04-17] MEDS: Vitamin THERAPEUTIC TAB PO SCH (10:07)
[2022-04-17] MEDS: CLOBAZAM 10 MG PO SCH ×2 (10:16→21:13)
[2022-04-17] MEDS: Senna TAB 8.6 mg TAB PO SCH (21:14)
[2022-04-18] MEDS: SPIRIVA Respimat (tiotropium) 2.5 mcg/inh Inhaler INH SCH (07:00)
[2022-04-18] MEDS: CLOBAZAM 10 MG PO SCH ×2 (07:35→20:57)
[2022-04-18] MEDS: Vitamin THERAPEUTIC TAB PO SCH (07:35)
[2022-04-18] MEDS: Enoxaparin 40 MG/0.4 ML SYR SUBCUT SCH (07:40)
[2022-04-18] MEDS: Fluticasone NASAL SPRAY 50MCG 16 gm SPRAY BTL BOTH NARES SCH (07:42)
[2022-04-18] MEDS: Lactulose 30 ml UDC PO SCH ×2 (07:42→14:44)
[2022-04-18] MEDS: Senna TAB 8.6 mg TAB PO SCH (20:59)
[2022-04-19] MEDS: SPIRIVA Respimat (tiotropium) 2.5 mcg/inh Inhaler INH SCH (07:07)
[2022-04-19] MEDS: Enoxaparin 40 MG/0.4 ML SYR SUBCUT SCH (09:04)
[2022-04-19] MEDS: Vitamin THERAPEUTIC TAB PO SCH (09:05)
[2022-04-19] MEDS: Fluticasone NASAL SPRAY 50MCG 16 gm SPRAY BTL BOTH NARES SCH (09:06)
[2022-04-19] MEDS: Lactulose 30 ml UDC PO SCH ×2 (09:06→14:47)
[2022-04-19] MEDS: CLOBAZAM 10 MG PO SCH ×2 (09:06→20:14)
[2022-04-19] MEDS: Senna TAB 8.6 mg TAB PO SCH (20:15)
[2022-04-20] MEDS: SPIRIVA Respimat (tiotropium) 2.5 mcg/inh Inhaler INH SCH (08:15)
[2022-04-20] MEDS: Vitamin THERAPEUTIC TAB PO SCH (08:58)
[2022-04-20] MEDS: Lactulose 30 ml UDC PO SCH ×2 (08:58→15:22)
[2022-04-20] MEDS: CLOBAZAM 10 MG PO SCH (08:58)
[2022-04-20] MEDS: Enoxaparin 40 MG/0.4 ML SYR SUBCUT SCH (08:59)
[2022-04-20] MEDS: Fluticasone NASAL SPRAY 50MCG 16 gm SPRAY BTL BOTH NARES SCH (09:08)
[2022-04-20] MEDS: CMCS: CloBAZam 10 mg TAB (NF) PO SCH (21:24)
[2022-04-20] MEDS: Senna TAB 8.6 mg TAB PO SCH (21:25)
[2022-04-21] MEDS: SPIRIVA Respimat (tiotropium) 2.5 mcg/inh Inhaler INH SCH (07:27)
[2022-04-21] MEDS: CMCS: CloBAZam 10 mg TAB (NF) PO SCH ×2 (09:01→21:49)
[2022-04-21] MEDS: Lactulose 30 ml UDC PO SCH ×2 (09:01→14:27)
[2022-04-21] MEDS: Vitamin THERAPEUTIC TAB PO SCH (09:02)
[2022-04-21] MEDS: Enoxaparin 40 MG/0.4 ML SYR SUBCUT SCH (09:02)
[2022-04-21] MEDS: Fluticasone NASAL SPRAY 50MCG 16 gm SPRAY BTL BOTH NARES SCH (09:02)
[2022-04-21] MEDS: Senna TAB 8.6 mg TAB PO SCH (21:50)
[2022-04-22] MEDS: SPIRIVA Respimat (tiotropium) 2.5 mcg/inh Inhaler INH SCH (07:59)
[2022-04-22] MEDS: Lactulose 30 ml UDC PO SCH ×2 (08:43→14:23)
[2022-04-22] MEDS: Fluticasone NASAL SPRAY 50MCG 16 gm SPRAY BTL BOTH NARES SCH (08:43)
[2022-04-22] MEDS: Enoxaparin 40 MG/0.4 ML SYR SUBCUT SCH (08:44)
[2022-04-22] MEDS: CMCS: CloBAZam 10 mg TAB (NF) PO SCH ×2 (08:44→20:07)
[2022-04-22] MEDS: Vitamin THERAPEUTIC TAB PO SCH (08:45)
[2022-04-22] MEDS: Senna TAB 8.6 mg TAB PO SCH (20:08)
[2022-04-23] MEDS: Fluticasone NASAL SPRAY 50MCG 16 gm SPRAY BTL BOTH NARES SCH (08:13)
[2022-04-23] MEDS: Enoxaparin 40 MG/0.4 ML SYR SUBCUT SCH (08:13)
[2022-04-23] MEDS: CMCS: CloBAZam 10 mg TAB (NF) PO SCH ×2 (08:13→20:13)
[2022-04-23] MEDS: Lactulose 30 ml UDC PO SCH ×2 (08:13→14:42)
[2022-04-23] MEDS: Vitamin THERAPEUTIC TAB PO SCH (08:14)
[2022-04-23] MEDS: SPIRIVA Respimat (tiotropium) 2.5 mcg/inh Inhaler INH SCH (08:16)
[2022-04-23] MEDS: Senna TAB 8.6 mg TAB PO SCH (20:14)
[2022-04-24] MEDS: Fluticasone NASAL SPRAY 50MCG 16 gm SPRAY BTL BOTH NARES SCH (07:50)
[2022-04-24] MEDS: Lactulose 30 ml UDC PO SCH ×2 (07:50→15:48)
[2022-04-24] MEDS: Enoxaparin 40 MG/0.4 ML SYR SUBCUT SCH (07:51)
[2022-04-24] MEDS: Vitamin THERAPEUTIC TAB PO SCH (07:55)
[2022-04-24] MEDS: CMCS: CloBAZam 10 mg TAB (NF) PO SCH ×2 (07:55→20:59)
[2022-04-24] MEDS: SPIRIVA Respimat (tiotropium) 2.5 mcg/inh Inhaler INH SCH (08:41)
[2022-04-24] MEDS: Senna TAB 8.6 mg TAB PO SCH (21:00)
[2022-04-25] MEDS: Fluticasone NASAL SPRAY 50MCG 16 gm SPRAY BTL BOTH NARES SCH (07:46)
[2022-04-25] MEDS: Enoxaparin 40 MG/0.4 ML SYR SUBCUT SCH (07:46)
[2022-04-25] MEDS: Lactulose 30 ml UDC PO SCH ×2 (07:48→14:52)
[2022-04-25] MEDS: Vitamin THERAPEUTIC TAB PO SCH (07:49)
[2022-04-25] MEDS: CMCS: CloBAZam 10 mg TAB (NF) PO SCH ×2 (07:49→21:35)
[2022-04-25] MEDS: SPIRIVA Respimat (tiotropium) 2.5 mcg/inh Inhaler INH SCH (11:08)
[2022-04-25] MEDS: Senna TAB 8.6 mg TAB PO SCH (21:34)
[2022-04-26] MEDS: CMCS: CloBAZam 10 mg TAB (NF) PO SCH ×2 (08:03→19:43)
[2022-04-26] MEDS: Vitamin THERAPEUTIC TAB PO SCH (08:03)
[2022-04-26] MEDS: Fluticasone NASAL SPRAY 50MCG 16 gm SPRAY BTL BOTH NARES SCH (08:04)
[2022-04-26] MEDS: Enoxaparin 40 MG/0.4 ML SYR SUBCUT SCH (08:04)
[2022-04-26] MEDS: SPIRIVA Respimat (tiotropium) 2.5 mcg/inh Inhaler INH SCH (08:04)
[2022-04-26] MEDS: Lactulose 30 ml UDC PO SCH ×2 (08:04→14:47)
[2022-04-26] MEDS: Senna TAB 8.6 mg TAB PO SCH (19:41)
[2022-04-27] MEDS: SPIRIVA Respimat (tiotropium) 2.5 mcg/inh Inhaler INH SCH (07:17)
[2022-04-27] MEDS: CMCS: CloBAZam 10 mg TAB (NF) PO SCH (08:31)
[2022-04-27] MEDS: Enoxaparin 40 MG/0.4 ML SYR SUBCUT SCH (08:32)
[2022-04-27] MEDS: Vitamin THERAPEUTIC TAB PO SCH (08:33)
[2022-04-27] MEDS: Lactulose 30 ml UDC PO SCH ×2 (08:33→15:26)
[2022-04-27] MEDS: Fluticasone NASAL SPRAY 50MCG 16 gm SPRAY BTL BOTH NARES SCH (08:33)
[2022-04-27] MEDS: Senna TAB 8.6 mg TAB PO SCH (20:51)
[2022-04-27] MEDS: CloBAZam 10 mg TAB (NF) PO SCH (21:42)
[2022-04-28] MEDS: SPIRIVA Respimat (tiotropium) 2.5 mcg/inh Inhaler INH SCH (07:38)
[2022-04-28] MEDS: Lactulose 30 ml UDC PO SCH ×2 (08:35→17:16)
[2022-04-28] MEDS: Fluticasone NASAL SPRAY 50MCG 16 gm SPRAY BTL BOTH NARES SCH (08:35)
[2022-04-28] MEDS: Enoxaparin 40 MG/0.4 ML SYR SUBCUT SCH (08:35)
[2022-04-28] MEDS: CloBAZam 10 mg TAB (NF) PO SCH ×2 (08:36→21:03)
[2022-04-28] MEDS: Vitamin THERAPEUTIC TAB PO SCH (08:36)
[2022-04-28] MEDS: Senna TAB 8.6 mg TAB PO SCH (21:03)
[2022-04-29] MEDS: SPIRIVA Respimat (tiotropium) 2.5 mcg/inh Inhaler INH SCH (07:36)
[2022-04-29] MEDS: Enoxaparin 40 MG/0.4 ML SYR SUBCUT SCH (09:37)
[2022-04-29] MEDS: Vitamin THERAPEUTIC TAB PO SCH (09:37)
[2022-04-29] MEDS: Lactulose 30 ml UDC PO SCH ×3 (09:37→21:08)
[2022-04-29] MEDS: CloBAZam 10 mg TAB (NF) PO SCH ×2 (09:37→21:08)
[2022-04-29] MEDS: Fluticasone NASAL SPRAY 50MCG 16 gm SPRAY BTL BOTH NARES SCH (09:38)
[2022-04-29] MEDS: Senna TAB 8.6 mg TAB PO SCH (21:08)
[2022-04-30] MEDS: SPIRIVA Respimat (tiotropium) 2.5 mcg/inh Inhaler INH SCH (07:38)
[2022-04-30] MEDS: Vitamin THERAPEUTIC TAB PO SCH (09:13)
[2022-04-30] MEDS: Lactulose 30 ml UDC PO SCH ×3 (09:13→20:50)
[2022-04-30] MEDS: Enoxaparin 40 MG/0.4 ML SYR SUBCUT SCH (09:13)
[2022-04-30] MEDS: Fluticasone NASAL SPRAY 50MCG 16 gm SPRAY BTL BOTH NARES SCH (09:14)
[2022-04-30] MEDS: CloBAZam 10 mg TAB (NF) PO SCH ×2 (09:14→20:50)
[2022-04-30] MEDS: Senna TAB 8.6 mg TAB PO SCH (20:50)
[2022-05-01] MEDS: SPIRIVA Respimat (tiotropium) 2.5 mcg/inh Inhaler INH SCH (07:38)
[2022-05-01] MEDS: Vitamin THERAPEUTIC TAB PO SCH (09:07)
[2022-05-01] MEDS: CloBAZam 10 mg TAB (NF) PO SCH ×2 (09:07→21:06)
[2022-05-01] MEDS: Enoxaparin 40 MG/0.4 ML SYR SUBCUT SCH (09:07)
[2022-05-01] MEDS: Lactulose 30 ml UDC PO SCH ×3 (09:07→21:05)
[2022-05-01] MEDS: Fluticasone NASAL SPRAY 50MCG 16 gm SPRAY BTL BOTH NARES SCH (09:08)
[2022-05-01] MEDS: Senna TAB 8.6 mg TAB PO SCH (21:06)
[2022-05-02] MEDS: SPIRIVA Respimat (tiotropium) 2.5 mcg/inh Inhaler INH SCH (07:34)
[2022-05-02] MEDS: Vitamin THERAPEUTIC TAB PO SCH (10:45)
[2022-05-02] MEDS: Lactulose 30 ml UDC PO SCH ×3 (10:45→20:59)
[2022-05-02] MEDS: Enoxaparin 40 MG/0.4 ML SYR SUBCUT SCH (10:45)
[2022-05-02] MEDS: CloBAZam 10 mg TAB (NF) PO SCH ×2 (10:46→20:58)
[2022-05-02] MEDS: Fluticasone NASAL SPRAY 50MCG 16 gm SPRAY BTL BOTH NARES SCH (10:47)
[2022-05-02] MEDS: Senna TAB 8.6 mg TAB PO SCH (20:58)
[2022-05-03] MEDS: SPIRIVA Respimat (tiotropium) 2.5 mcg/inh Inhaler INH SCH (07:19)
[2022-05-03] MEDS: Fluticasone NASAL SPRAY 50MCG 16 gm SPRAY BTL BOTH NARES SCH (08:39)
[2022-05-03] MEDS: CloBAZam 10 mg TAB (NF) PO SCH ×2 (08:41→20:43)
[2022-05-03] MEDS: Vitamin THERAPEUTIC TAB PO SCH (08:41)
[2022-05-03] MEDS: Enoxaparin 40 MG/0.4 ML SYR SUBCUT SCH (08:46)
[2022-05-03] MEDS: Lactulose 30 ml UDC PO SCH ×3 (08:47→20:44)
[2022-05-03] MEDS: Senna TAB 8.6 mg TAB PO SCH (20:44)
[2022-05-04] MEDS: SPIRIVA Respimat (tiotropium) 2.5 mcg/inh Inhaler INH SCH (07:28)
[2022-05-04] MEDS: Lactulose 30 ml UDC PO SCH ×3 (08:32→20:55)
[2022-05-04] MEDS: Enoxaparin 40 MG/0.4 ML SYR SUBCUT SCH (08:32)
[2022-05-04] MEDS: CloBAZam 10 mg TAB (NF) PO SCH ×2 (08:34→20:48)
[2022-05-04] MEDS: Vitamin THERAPEUTIC TAB PO SCH (08:34)
[2022-05-04] MEDS: Fluticasone NASAL SPRAY 50MCG 16 gm SPRAY BTL BOTH NARES SCH (09:55)
[2022-05-04] MEDS: Senna TAB 8.6 mg TAB PO SCH (20:48)
[2022-05-05] MEDS: SPIRIVA Respimat (tiotropium) 2.5 mcg/inh Inhaler INH SCH (07:13)
[2022-05-05] MEDS: Lactulose 30 ml UDC PO SCH ×3 (08:22→20:56)
[2022-05-05] MEDS: Ketoconazole 2 % CREAM (NF) 30 GM TUBE TOPICAL PRN (08:22)
[2022-05-05] MEDS: Fluticasone NASAL SPRAY 50MCG 16 gm SPRAY BTL BOTH NARES SCH (08:22)
[2022-05-05] MEDS: CloBAZam 10 mg TAB (NF) PO SCH ×2 (08:23→20:56)
[2022-05-05] MEDS: Enoxaparin 40 MG/0.4 ML SYR SUBCUT SCH (08:23)
[2022-05-05] MEDS: Vitamin THERAPEUTIC TAB PO SCH (08:24)
[2022-05-05] MEDS: Senna TAB 8.6 mg TAB PO SCH (20:56)
[2022-05-06] MEDS: SPIRIVA Respimat (tiotropium) 2.5 mcg/inh Inhaler INH SCH (07:28)
[2022-05-06] MEDS: Fluticasone NASAL SPRAY 50MCG 16 gm SPRAY BTL BOTH NARES SCH (08:12)
[2022-05-06] MEDS: Lactulose 30 ml UDC PO SCH ×3 (08:12→22:01)
[2022-05-06] MEDS: CloBAZam 10 mg TAB (NF) PO SCH ×2 (08:13→20:47)
[2022-05-06] MEDS: Ketoconazole 2 % CREAM (NF) 30 GM TUBE TOPICAL PRN (08:13)
[2022-05-06] MEDS: Enoxaparin 40 MG/0.4 ML SYR SUBCUT SCH (08:13)
[2022-05-06] MEDS: Vitamin THERAPEUTIC TAB PO SCH (08:14)
[2022-05-06] MEDS: Senna TAB 8.6 mg TAB PO SCH (20:48)
[2022-05-07] MEDS: SPIRIVA Respimat (tiotropium) 2.5 mcg/inh Inhaler INH SCH (07:54)
[2022-05-07] MEDS: CloBAZam 10 mg TAB (NF) PO SCH ×2 (08:51→20:55)
[2022-05-07] MEDS: Vitamin THERAPEUTIC TAB PO SCH (08:51)
[2022-05-07] MEDS: Lactulose 30 ml UDC PO SCH ×3 (08:51→20:54)
[2022-05-07] MEDS: Fluticasone NASAL SPRAY 50MCG 16 gm SPRAY BTL BOTH NARES SCH (08:51)
[2022-05-07] MEDS: Enoxaparin 40 MG/0.4 ML SYR SUBCUT SCH (08:51)
[2022-05-07] MEDS: Senna TAB 8.6 mg TAB PO SCH (20:55)
[2022-05-08] MEDS: SPIRIVA Respimat (tiotropium) 2.5 mcg/inh Inhaler INH SCH (08:06)
[2022-05-08] MEDS: Lactulose 30 ml UDC PO SCH ×3 (09:47→21:00)
[2022-05-08] MEDS: Enoxaparin 40 MG/0.4 ML SYR SUBCUT SCH (09:47)
[2022-05-08] MEDS: Fluticasone NASAL SPRAY 50MCG 16 gm SPRAY BTL BOTH NARES SCH (09:48)
[2022-05-08] MEDS: CloBAZam 10 mg TAB (NF) PO SCH ×2 (09:48→20:59)
[2022-05-08] MEDS: Vitamin THERAPEUTIC TAB PO SCH (09:48)
[2022-05-08] MEDS: Senna TAB 8.6 mg TAB PO SCH (21:00)
[2022-05-09] MEDS: SPIRIVA Respimat (tiotropium) 2.5 mcg/inh Inhaler INH SCH (08:07)
[2022-05-09] MEDS: Enoxaparin 40 MG/0.4 ML SYR SUBCUT SCH (09:03)
[2022-05-09] MEDS: Lactulose 30 ml UDC PO SCH ×3 (09:03→21:42)
[2022-05-09] MEDS: Fluticasone NASAL SPRAY 50MCG 16 gm SPRAY BTL BOTH NARES SCH (09:03)
[2022-05-09] MEDS: Ketoconazole 2 % CREAM (NF) 30 GM TUBE TOPICAL PRN (09:04)
[2022-05-09] MEDS: CloBAZam 10 mg TAB (NF) PO SCH ×2 (09:05→21:39)
[2022-05-09] MEDS: Vitamin THERAPEUTIC TAB PO SCH (09:05)
[2022-05-09] MEDS: Senna TAB 8.6 mg TAB PO SCH (21:38)
[2022-05-09 22:06] LABS: Rapid COVID-19 Molecular Undetected (Undetected)
[2022-05-10 05:01] VITALS: BP 117/69
[2022-05-10] MEDS: Enoxaparin 40 MG/0.4 ML SYR SUBCUT SCH (08:15)
[2022-05-10] MEDS: Lactulose 30 ml UDC PO SCH (08:15)
[2022-05-10] MEDS: CloBAZam 10 mg TAB (NF) PO SCH (08:15)
[2022-05-10] MEDS: Fluticasone NASAL SPRAY 50MCG 16 gm SPRAY BTL BOTH NARES SCH (08:16)
[2022-05-10] MEDS: Vitamin THERAPEUTIC TAB PO SCH (08:16)
[2022-05-10] MEDS: SPIRIVA Respimat (tiotropium) 2.5 mcg/inh Inhaler INH SCH (08:36)
== END 2022-05-10 10:10 | DRG 871 ==
LOC: MED 07:48 → SUATTDRO 07:48 → MED 04-19 13:29
PROVIDERS: ADMIT Hospitalist; ATTEND Internal Medicine

== ENCOUNTER 2023-05-11 11:50 | Inpatient (IN) ==
[2023-05-11 12:34] LABS: PCO2 Arterial 50 mmHg (35-45); PO2 Arterial 81 mmHg (80-100)
[2023-05-11 13:05] LABS: ABS Eosinophils 0.1 10^3/uL (0.0-0.5); ABS Lymphocytes 1.5 10^3/uL (1.0-4.8); ABS Monocytes 0.5 10^3/uL (0.0-1.1); ABS Neutrophils 3.9 10^3/uL (1.5-7.6); ABS Nucleated RBC 0.01 10^3/ul; Hematocrit 39.5 % (38-53); Hemoglobin 13.2 g/dL (13.2-16.3); Lymphocyte % 25.4 %; Mean Corpuscular Hemoglobin 30.2 pg (27-33); Mean Corpuscular Hgb Conc 33.5 g/dL (31-36); Mean Corpuscular Volume 90.2 fL (80-97); Mean Platelet Volume 8.6 fL (7.5-11.2); Nucleated Red Blood Cells % 0.1 %/100WBC (0.0-0.8); Platelet Count 320 10^3/uL (150-450); Red Blood Count 4.38 10^6/uL (4.06-5.63); Red Cell Distribution Width 16.9 % (12-17)
[2023-05-11 13:13] LABS: Activated Partial Thrombo Time 31.2 seconds (26.0-38.0); INR 1.16 (0.83-1.13)
[2023-05-11] MEDS: NS 0.9% 1000 ml BAG 1,000 ML IV ONE (13:17)
[2023-05-11 13:56] LABS: Albumin 3.2 g/dL (3.2-5.2); Albumin/Globulin Ratio 0.8 (1-3); C Reactive Protein 47.83 mg/L (<8.01); Creatinine, Serum 0.67 mg/dL (0.67-1.17); Globulin 4.1 g/dL (2-4); Total Bilirubin 0.4 mg/dL (0.2-1.0); Total Protein 7.3 g/dL (6.4-8.9); eGFR CKD-EPI 108.9 (>60)
[2023-05-11] MEDS: cefTRIAXone 1 gm/50 mL D5W 1 GM/50 ML BAG IV ONE (14:01)
[2023-05-11 14:11] LABS: Urine Appearance Clear; Urine Bilirubin Negative (Negative); Urine Blood Negative (Negative); Urine Color Yellow; Urine Glucose Negative (Negative); Urine Ketones Trace (Negative); Urine Nitrite Negative (Negative); Urine Protein Negative (Negative); Urine Specific Gravity 1.021 (1.002-1.030); Urine Urobilinogen Negative (Negative)
[2023-05-11] MEDS: Iohexol 350 (CONTRAST) 500 ML MDV IV ONE (14:33)
[2023-05-11] MEDS: Azithromycin 500 mg/250 ml NS 500 MG/250 ML BAG IVPB ONE (15:29)
[2023-05-11 15:49] LABS: High Sensitivity Troponin 1 Hr 7 pg/mL (<20)
[2023-05-11] MEDS: Enoxaparin 40 MG/0.4 ML SYR SUBCUT SCH (17:33)
[2023-05-11 19:02] LABS: TSH Ultra Thyroid Stim Horm 1.61 mcIU/mL (0.34-5.60)
[2023-05-11] MEDS ORDERED: Albuterol HFA INHALER 8 gm MDI INH PRN (20:22)
[2023-05-11 20:51] LABS: Calcium 8.4 mg/dL (8.6-10.3); Creatinine, Serum 0.5 mg/dL (0.67-1.17); Potassium 3.6 mmol/L (3.5-5.0)
[2023-05-11] MEDS ORDERED: CloBAZam 10 mg TAB (NF) PO SCH (21:00)
[2023-05-11] MEDS ORDERED: Magnesium Hydroxide LIQ 30 ML UDC PO PRN (21:18)
[2023-05-11] MEDS: Senna TAB 8.6 mg TAB PO SCH (22:36)
[2023-05-11] MEDS: Lactated Ringers 1000 ml BAG 1,000 ML IV SCH (22:55)
[2023-05-11] MEDS: CloBAZam 10 mg TAB (NF) PO SCH (23:09)
[2023-05-11] MEDS: Clotrimazole 1% CREAM 30 gm TOPICAL SCH (23:09)
[2023-05-12] MEDS: Lactated Ringers 1000 ml BAG 1,000 ML IV SCH (03:45)
[2023-05-12 06:16] LABS: ABS Basophils 0.1 10^3/uL (0.0-0.1); ABS Eosinophils 0.2 10^3/uL (0.0-0.5); ABS Lymphocytes 1.7 10^3/uL (1.0-4.8); ABS Monocytes 0.5 10^3/uL (0.0-1.1); Eosinophil % 2.8 %; Hematocrit 34.9 % (38-53); Hemoglobin 11.9 g/dL (13.2-16.3); Lymphocyte % 22.4 %; Mean Corpuscular Hemoglobin 30.6 pg (27-33); Mean Corpuscular Hgb Conc 34.1 g/dL (31-36); Mean Corpuscular Volume 89.6 fL (80-97); Mean Platelet Volume 8.6 fL (7.5-11.2); Platelet Count 263 10^3/uL (150-450); Red Blood Count 3.89 10^6/uL (4.06-5.63); Red Cell Distribution Width 16.5 % (12-17); White Blood Count 7.5 10^3/uL (3.6-10.2)
[2023-05-12 06:46] LABS: C Reactive Protein 42.22 mg/L (<8.01); Calcium 8.3 mg/dL (8.6-10.3); Creatinine, Serum 0.4 mg/dL (0.67-1.17); Magnesium 1.8 mg/dL (1.9-2.7); Potassium 3.6 mmol/L (3.5-5.0); eGFR CKD-EPI 127.3 (>60)
[2023-05-12] MEDS: SPIRIVA Respimat (tiotropium) 2.5 mcg/inh Inhaler INH SCH (08:07)
[2023-05-12] MEDS: Zinc Oxide 16% PASTE (Butt Paste) 30 gm TUBE TOPICAL SCH (09:48)
[2023-05-12] MEDS: D5LR 1000 ml BAG 1,000 ML IV SCH (11:52)
[2023-05-12] MEDS: cefTRIAXone 1 gm/50 mL D5W 1 GM/50 ML BAG IV SCH (14:00)
[2023-05-12] MEDS: Azithromycin 500 mg/250 ml NS 500 MG/250 ML BAG IVPB SCH (17:46)
[2023-05-13 11:07] LABS: ABS Basophils 0.1 10^3/uL (0.0-0.1); ABS Lymphocytes 1.5 10^3/uL (1.0-4.8); ABS Monocytes 0.4 10^3/uL (0.0-1.1); ABS Neutrophils 5.5 10^3/uL (1.5-7.6); ABS Nucleated RBC 0.01 10^3/ul; Eosinophil % 0.2 %; Hematocrit 38.8 % (38-53); Hemoglobin 12.9 g/dL (13.2-16.3); Lymphocyte % 20.6 %; Mean Corpuscular Hemoglobin 29.9 pg (27-33); Mean Corpuscular Hgb Conc 33.3 g/dL (31-36); Mean Corpuscular Volume 89.7 fL (80-97); Mean Platelet Volume 9.1 fL (7.5-11.2); Nucleated Red Blood Cells % 0.1 %/100WBC (0.0-0.8); Platelet Count 308 10^3/uL (150-450); Red Blood Count 4.32 10^6/uL (4.06-5.63); Red Cell Distribution Width 16.2 % (12-17); White Blood Count 7.5 10^3/uL (3.6-10.2)
[2023-05-13 12:07] LABS: Calcium 8.7 mg/dL (8.6-10.3); Creatinine, Serum 0.43 mg/dL (0.67-1.17); Magnesium 1.9 mg/dL (1.9-2.7); Potassium 3.9 mmol/L (3.5-5.0); eGFR CKD-EPI 124.5 (>60)
[2023-05-14 06:04] LABS: Hematocrit 35.8 % (38-53); Mean Corpuscular Hemoglobin 30.2 pg (27-33); Mean Corpuscular Hgb Conc 33.5 g/dL (31-36); Mean Corpuscular Volume 90.3 fL (80-97); Mean Platelet Volume 9.1 fL (7.5-11.2); Platelet Count 273 10^3/uL (150-450); Red Blood Count 3.96 10^6/uL (4.06-5.63); Red Cell Distribution Width 16.5 % (12-17); White Blood Count 7.6 10^3/uL (3.6-10.2)
[2023-05-14 06:41] LABS: Creatinine, Serum 0.42 mg/dL (0.67-1.17); Magnesium 1.9 mg/dL (1.9-2.7); Phosphorus 2.9 mg/dL (2.5-5.0); Potassium 3.8 mmol/L (3.5-5.0); eGFR CKD-EPI 125.4 (>60)
[2023-05-14] MEDS: Magnesium Hydroxide LIQ 30 ML UDC PO SCH (11:33)
[2023-05-14] MEDS: Senna TAB 8.6 mg TAB PO ONE (13:09)
[2023-05-15 06:49] LABS: ABS Basophils 0.1 10^3/uL (0.0-0.1); ABS Eosinophils 0.1 10^3/uL (0.0-0.5); ABS Lymphocytes 2.6 10^3/uL (1.0-4.8); ABS Monocytes 0.5 10^3/uL (0.0-1.1); ABS Neutrophils 3.9 10^3/uL (1.5-7.6); Eosinophil % 0.7 %; Hematocrit 35.9 % (38-53); Hemoglobin 11.9 g/dL (13.2-16.3); Lymphocyte % 36.3 %; Mean Corpuscular Hemoglobin 29.9 pg (27-33); Mean Corpuscular Hgb Conc 33.3 g/dL (31-36); Mean Corpuscular Volume 89.7 fL (80-97); Mean Platelet Volume 8.9 fL (7.5-11.2); Nucleated Red Blood Cells % 0.1 %/100WBC (0.0-0.8); Platelet Count 270 10^3/uL (150-450); Red Cell Distribution Width 16.5 % (12-17); White Blood Count 7.2 10^3/uL (3.6-10.2)
[2023-05-15 08:18] LABS: Calcium 8.4 mg/dL (8.6-10.3); Creatinine, Serum 0.45 mg/dL (0.67-1.17); eGFR CKD-EPI 122.8 (>60)
[2023-05-15 10:24] VITALS: BP 113/73
[2023-05-15 10:28] LABS: Rapid COVID-19 Molecular Undetected (Undetected)
== END 2023-05-15 11:25 | DRG 91 ==
LOC: ED 11:50 → EDHOLD 11:50 → MED 17:31 → SUATTDRO 05-12 11:19
PROVIDERS: ADMIT Internal Medicine; ATTEND Internal Medicine